=== PATIENT | female | born 1935 | race Caucasian/White ===

== ENCOUNTER 2018-08-16 18:00 | Inpatient (IN) | payer MEDICARE, SELFPAY ==
[2018-08-16 19:10] VITALS: BP 164/78; PULSE 88; RESP 18; TEMP 36.9; O2SAT 95; BMI 22.6
[2018-08-16 21:31] VITALS: BP 165/74; PULSE 83
[2018-08-16] MEDS: hydrALAZINE 25 MG Tablet PO (21:31)
[2018-08-16] MEDS: Senna/Docusate Sodium 1 Tablet 2 TABLET PO (21:31)
[2018-08-16] MEDS: Atorvastatin Calcium 10 MG Tablet 5 MG PO (21:31)
[2018-08-16 21:35] VITALS: BP 165/74; PULSE 83; RESP 16; TEMP 36.7; O2SAT 95
[2018-08-17 06:18] LABS: Absolute Lymphocyte Count 0.89 X10^3/ul (0.83-4.51); Absolute Neutrophil Count 10.8 X10^3/uL (2.0-7.7); Basophil# 0.01 X10^3/uL; Basophil% 0.1 % (0-1); Hemoglobin 8.9 g/dl (12.0-15.0); Lymphocyte # 0.89 X10^3/ul (4.0); Lymphocyte % 7.2 % (19-41); Mean Corpuscular Hgb 29.8 pg (27.0-32.0); Mean Corpuscular Volume 90.3 fL (81-99); Mean Platelet Vol. 9.6 fl (6.2-12.0); Monocyte# 0.52 X10^3/uL; Monocyte% 4.2 % (0-10); Neutrophil # 10.82 X10^3/uL (2.7-7.7); Neutrophil % 87.9 % (47-70); Platelet Count 250 K/mm3 (150-450); Prothrombin Time (Protime)PT. 22.8 SECONDS (11.7-14.9); RBC Distribution Width CV 12.4 % (11.6-14.6); RBC Distribution Width SD 39.3 fl (35.1-43.9); Red Blood Count 2.99 M/mm3 (4.2-5.4); White Blood Count 12.3 K/mm3 (4.4-11.0)
[2018-08-17 06:21] LABS: POSITIVE COUNT NO; POSITIVE DIFFERENTIAL NO; POSITIVE MORPHOLOGY NO
[2018-08-17 06:22] VITALS: O2SAT 95
[2018-08-17 06:32] LABS: ALB/GLOB Ratio 0.5 RATIO (0.9-2.4); AST(SGOT) 44 U/L (15-37); Alanine Aminotransfer ALT/SGPT 35 U/L (13-56); Alkaline Phosphatase 85 U/L (45-117); Anion Gap 9 (5-15); BUN 12 mg/dL (7-18); BUN/Creat Ratio 23.3 RATIO (10-20); Calcium,Total 8.2 mg/dL (8.5-10.1); Chloride 95 mmol/L (98-107); Creatinine, Serum 0.51 mg/dL (0.55-1.02); EST Glomerular Filtration Rate 122 mL/min (>60); Est Glom Filt Rate - Afr Amer 147 mL/min (>60); Globulin 3.7 g/dL (2.2-4.2); Glucose 121 mg/dL (74-106); Potassium 3.1 mmol/L (3.5-5.1); Protein, Total 5.7 g/dL (6.4-8.2); Sodium Level 132 mmol/L (136-145)
[2018-08-17 06:37] VITALS: BP 148/75; PULSE 91
[2018-08-17] MEDS: hydrALAZINE 25 MG Tablet PO ×3 (06:37→21:33)
[2018-08-17] MEDS: Aspirin E.C. 81 MG Tablet PO (07:57)
[2018-08-17] MEDS: Calcium Carb/Vitamin D 1 TABLET Tablet PO ×2 (07:57→18:22)
[2018-08-17] MEDS: Latanoprost 0.005% 1 Bottle 1 DRP EACH EYE (07:58)
[2018-08-17] MEDS: Lisinopril 20 MG Tablet PO (07:59)
[2018-08-17] MEDS: Senna/Docusate Sodium 1 Tablet 2 TABLET PO (07:59)
[2018-08-17 08:09] VITALS: BP 148/75; PULSE 91; RESP 20; TEMP 36.8; O2SAT 96
[2018-08-17] MEDS: Enoxaparin 40 MG/0.4 ML Syringe SC (08:46)
--- NOTE | 2018-08-17 10:56 | PCM.HP.STD ---
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 The patient is a 82 year old F with PMH HTN, HLD, TIA, glaucoma, melanoma, recent abdominal aortic aneurysm rupture status post endovascular repair on 08/10/2018 at [place], [place] complicated by acute left HOSPICE NURSE stroke on 08/11/2018, now admitted to [facility] on 08/16/2018 with debility status post acute left HOSPICE NURSE stroke, for greater than 3 hours therapy daily with a goal of returning back to her home at or near her prior functional baseline. Patient was initially admitted to [facility] in [place] with abdominal pain was found ruptured abdominal aortic aneurysm was later transferred to [facility] in [place] where she underwent endovascular repair on 08/10/2018, then later on 08/11/2018 around 8 AM she was found to have left gaze deviation with right-sided weakness and neglect with NIHSS 16, CT head showed acute left HOSPICE NURSE stroke and small right superior cerebellar stroke, CT angiogram showed left proximal HOSPICE NURSE occlusion and right PICA occlusion, CT perfusion reported to show CBF volume 30 mL, perfusion volume 37 mL, mismatch volume 7 mL with mismatch ratio of 1.2, she was not a TPA candidate due to recent surgery and was not an endovascular candidate due to matched defect. At present patient continues to have severe focal neurological deficits in the form of right homonymous hemianopia with dysarthria extinction and right-sided weakness. Per documentation she lives in a private home with no steps. At present patient denies any headache dizziness, new onset focal motor weakness sensory loss or aphasia. Patient is a poor historian and history cannot be obtained from the patient, history is obtained from medical records and documentation. 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 (Acute) I63.532 Hypercholesteremia (Chronic) E78.00 HTN (hypertension) (Chronic) I10 Aortic aneurysm rupture (Resolved) I71.8 Allergies No Known Allergies Allergy (Verified 08/16/18 19:42) Home Medications: Ambulatory Orders Medication Instructions Recorded Aspirin [Aspir 81] 81 mg PO DAILY 08/16/18 Calcium Carb/Vitamin D [Os-Chi 1 tablet PO BIDCM 08/16/18 500MG + D] Latanoprost 0.005% [Xalatan 1 drop EACH EYE DAILY 08/16/18 Opthalmic] Lisinopril 20 mg PO DAILY 08/16/18 Lovastatin 20 mg PO QHS 08/16/18 hydrALAZINE [Apresoline] 25 mg PO TID 08/16/18 Lives: Spouse/ Significant Other Smoking Status: Former smoker Tobacco Use: Cigarettes Alcohol: None Drugs: None Review of Systems Constitutional: Reports: - - Complete review of systems negative except as documented in HPI VTE Information - Inpt Only VTE Present on Admission: No VTE Mechan Device Prophylaxis: SCD's, Knee High ROBBY Hose VTE Pharm Prophylaxis ordered?: Yes Patient Problems: Active and Suspected Problems (Last Updated 08/16/18 @ 22:40 by Vanesa Tejada) Debility (Acute) 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 Vital Signs Temp Pulse Resp BP Pulse Ox 98.2 F 91 20 H 148/75 H 96 08/17/18 08:09 03/15/19 08:09 08/17/18 08:09 08/17/18 08:09 08/17/18 08:09 Oxygen Delivery Method Room Air Weight: 56.08 kg Body Mass Index (BMI) 22.6 Intake and Output for Last 24 Hours 08/15/18 08/16/18 08/17/18 23:59 23:59 23:59 Intake Total 60 / 60 Output Total 100 / 100 250 / 250 Balance -100 / -100 -190 / -190 Laboratory Tests Past 24 Hrs 08/17/18 08/17/18 08/17/18 05:25 05:25 05:25 WBC 12.3 H RBC 2.99 L Hgb 8.9 L Hct 27.0 L MCV 90.3 MCH 29.8 MCHC 33.0 RDW 12.4 RDW Differential 39.3 Plt Count 250 MPV 9.6 Immature Gran % (Auto) 0.600 Neut % (Auto) 87.9 H Lymph % (Auto) 7.2 L [place] % (Auto) 4.2 Eos % (Auto) 0.0 Baso % (Auto) 0.1 Absolute Neuts (auto) 10.8 H Absolute Lymphs (auto) 0.89 Total Counted Not Reportable PT 22.8 H INR 2.0 Sodium 132 L Potassium 3.1 L Chloride 95 L Carbon Dioxide 28.0 Anion Gap 9 BUN 12 Creatinine 0.51 L Estim Creat Clear Calc 34.90 Est GFR (MDRD) Af Amer 147 Est GFR (MDRD) Non-Af 122 BUN/Creatinine Ratio 23.3 H Glucose 121 H Calcium 8.2 L Total Bilirubin 0.90 AST 44 H ALT 35 Alkaline Phosphatase 85 Total Protein 5.7 L Albumin 2.0 L Globulin 3.7 Albumin/Globulin Ratio 0.5 L Assessment/Plan All Active Problems (Last Updated 08/16/18 @ 22:40 by Vanesa Tjeada) Debility (Acute) 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 Patient was initially admitted to [facility] in [place] with abdominal pain was found ruptured abdominal aortic aneurysm was later transferred to [facility] in [place] where she underwent endovascular repair on 08/10/2018, then later on 08/11/2018 around 8 AM she was found to have left gaze deviation with right-sided weakness and neglect with NIHSS 16, CT head showed acute left HOSPICE NURSE stroke and small right superior cerebellar stroke, CT angiogram showed left proximal HOSPICE NURSE occlusion and right PICA occlusion, CT perfusion reported to show CBF volume 30 mL, perfusion volume 37 mL, mismatch volume 7 mL with mismatch ratio of 1.2, she was not a TPA candidate due to recent surgery and was not an endovascular candidate due to matched defect. At present patient continues to have severe focal neurological deficits in the form of right homonymous hemianopia with dysarthria extinction and right-sided weakness. Per documentation she lives in a private home with no steps. At present patient denies any headache dizziness, new onset focal motor weakness sensory loss or aphasia. Patient is a poor historian and history cannot be obtained from the patient, history is obtained from medical records and documentation Plan ?PT for gait stability ?OT for ADLs ?Bowel protocol ?Analgesics as needed ?Labs reviewed?WBC 12.3, INR 2, AST 44. Patient had a high INR as an inpatient at the outside hospital, reason not clear. Will defer further management per hospitalist recommendation. ?Left HOSPICE NURSE stroke, small right superior cerebellar stroke?on aspirin and Lipitor ?HTN?on lisinopril and hydralazine ?HLD- on atorvastatin ?GI/DVT prophylaxis-on famotidine/Lovenox, SCDs ?Fall precautions ?Hospitalist consult ?Further medical management per hospitalist recommendations ?Follow-up with PCP and neurology on discharge. Code Visit Inpatient E&M: [id number] Init Hosp L3
--- NOTE | 2018-08-17 11:06 | HP.PCM_ITS ---
Problem List (1) Debility Status: Acute (2) TIA (transient ischemic attack) Status: Chronic (3) Glaucoma Status: Chronic (4) Acute ischemic left posterior cerebral artery (STRATEGY ANALYST) stroke Status: Acute (5) Hypercholesteremia Status: Chronic (6) HTN (hypertension) Status: Chronic (7) Aortic aneurysm rupture Status: Resolved History of Present Illness Date of Admission: 08/17/18 Chief Complaint: Debility status post left STRATEGY ANALYST stroke. The patient is a 82 year old F with PMH HTN, HLD, TIA, glaucoma, melanoma, recent abdominal aortic aneurysm rupture status post endovascular repair on 08/10/2018 at [place] complicated by acute left STRATEGY ANALYST stroke on 08/11/2018, now admitted to [facility] on 08/16/2018 with debility status post acute left STRATEGY ANALYST stroke, for greater than 3 hours therapy daily with a goal of returning back to her home at or near her prior functional baseline. Patient was initially admitted to [facility] in [place] with abdominal pain was found ruptured abdominal aortic aneurysm was later transferred to [facility] in [place] where she underwent endovascular repair on 08/10/2018, then later on 08/11/2018 around 8 AM she was found to have left gaze deviation with right-sided weakness and neglect with NIHSS 16, CT head showed acute left STRATEGY ANALYST stroke and small right superior cerebellar stroke, CT angiogram showed left proximal STRATEGY ANALYST occlusion and right PICA occlusion, CT perfusion reported to show CBF volume 30 mL, perfusion volume 37 mL, mismatch volume 7 mL with mismatch ratio of 1.2, she was not a TPA candidate due to recent surgery and was not an endovascular candidate due to matched defect. At present patient continues to have severe focal neurological deficits in the form of right homonymous hemianopia with dysarthria extinction and right-sided weakness. Per documentation she lives in a private home with no steps. At present patient denies any headache dizziness, new onset focal motor weakness sensory loss or aphasia. Patient is a poor historian and history cannot be obtained from the patient, history is obtained from medical records and documentation. [] Past Medical History Past Medical History (Chronic Problems): Chronic Problems (Last Updated 08/16/18 @ 22:40 by Vanesa Tejada) TIA (transient ischemic attack) (Chronic) Glaucoma (Chronic) Hypercholesteremia (Chronic) HTN (hypertension) (Chronic) Medical History: Medical History (Last Updated 08/16/18 @ 22:40 by Vanesa Tejada) TIA (transient ischemic attack) (Chronic) G45.9 Glaucoma (Chronic) H40.9 Acute ischemic left posterior cerebral artery (STRATEGY ANALYST) stroke (Acute) I63.532 Hypercholesteremia (Chronic) E78.00 HTN (hypertension) (Chronic) I10 Aortic aneurysm rupture (Resolved) I71.8 Allergies No Known Allergies Allergy (Verified 08/16/18 19:42) Home Medications: Ambulatory Orders Medication Instructions Recorded Aspirin [Aspir 81] 81 mg PO DAILY 08/16/18 Calcium Carb/Vitamin D [Os-Chi 1 tablet PO BIDCM 08/16/18 500MG + D] Latanoprost 0.005% [Xalatan 1 drop EACH EYE DAILY 08/16/18 Opthalmic] Lisinopril 20 mg PO DAILY 08/16/18 Lovastatin 20 mg PO QHS 08/16/18 hydrALAZINE [Apresoline] 25 mg PO TID 08/16/18 Lives: Spouse/ Significant Other Smoking Status: Former smoker Tobacco Use: Cigarettes Alcohol: None Drugs: None Review of Systems Constitutional: Reports: - - Complete review of systems negative except as documented in HPI VTE Information - Inpt Only VTE Present on Admission: No VTE Mechan Device Prophylaxis: SCD's, Knee High ROBBY Hose VTE Pharm Prophylaxis ordered?: Yes Patient Problems: Active and Suspected Problems (Last Updated 08/16/18 @ 22:40 by Vanesa Tejada) Debility (Acute) 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 Vital Signs Temp Pulse Resp BP Pulse Ox 98.2 F 91 20 H 148/75 H 96 08/17/18 08:09 03/15/19 08:09 08/17/18 08:09 08/17/18 08:09 08/17/18 08:09 Oxygen Delivery Method Room Air Weight: 56.08 kg Body Mass Index (BMI) 22.6 Intake and Output for Last 24 Hours 08/15/18 08/16/18 08/17/18 23:59 23:59 23:59 Intake Total 60 / 60 Output Total 100 / 100 250 / 250 Balance -100 / -100 -190 / -190 Laboratory Tests Past 24 Hrs 08/17/18 08/17/18 08/17/18 05:25 05:25 05:25 WBC 12.3 H RBC 2.99 L Hgb 8.9 L Hct 27.0 L MCV 90.3 MCH 29.8 MCHC 33.0 RDW 12.4 RDW Differential 39.3 Plt Count 250 MPV 9.6 Immature Gran % (Auto) 0.600 Neut % (Auto) 87.9 H Lymph % (Auto) 7.2 L [place] % (Auto) 4.2 Eos % (Auto) 0.0 Baso % (Auto) 0.1 Absolute Neuts (auto) 10.8 H Absolute Lymphs (auto) 0.89 Total Counted Not Reportable PT 22.8 H INR 2.0 Sodium 132 L Potassium 3.1 L Chloride 95 L Carbon Dioxide 28.0 Anion Gap 9 BUN 12 Creatinine 0.51 L Estim Creat Clear Calc 34.90 Est GFR (MDRD) Af Amer 147 Est GFR (MDRD) Non-Af 122 BUN/Creatinine Ratio 23.3 H Glucose 121 H Calcium 8.2 L Total Bilirubin 0.90 AST 44 H ALT 35 Alkaline Phosphatase 85 Total Protein 5.7 L Albumin 2.0 L Globulin 3.7 Albumin/Globulin Ratio 0.5 L Assessment/Plan All Active Problems (Last Updated 08/16/18 @ 22:40 by Vanesa Tejada) Debility (Acute) 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 Patient was initially admitted to [facility] in [place] with abdominal pain was found ruptured abdominal aortic aneurysm was later transferred to [facility] in [place] where she underwent endovascular repair on 08/10/2018, then later on 08/11/2018 around 8 AM she was found to have left gaze deviation with right-sided weakness and neglect with NIHSS 16, CT head showed acute left STRATEGY ANALYST stroke and small right superior cerebellar stroke, CT angiogram showed left proximal STRATEGY ANALYST occlusion and right PICA occlusion, CT perfusion reported to show CBF volume 30 mL, perfusion volume 37 mL, mismatch volume 7 mL with mismatch ratio of 1.2, she was not a TPA candidate due to recent surgery and was not an endovascular candidate due to matched defect. At present patient continues to have severe focal neurological deficits in the form of right homonymous hemianopia with dysarthria extinction and right-sided weakness. Per documentation she lives in a private home with no steps. At present patient denies any headache dizziness, new onset focal motor weakness sensory loss or aphasia. Patient is a poor historian and history cannot be obtained from the patient, history is obtained from medical records and documentation Plan ?PT for gait stability ?OT for ADLs ?Bowel protocol ?Analgesics as needed ?Labs reviewed?WBC 12.3, INR 2, AST 44. Patient had a high INR as an inpatient at the outside hospital, reason not clear. Will defer further management per hospitalist recommendation. ?Left STRATEGY ANALYST stroke, small right superior cerebellar stroke?on aspirin and Lipitor ?HTN?on lisinopril and hydralazine ?HLD- on atorvastatin ?GI/DVT prophylaxis-on famotidine/Lovenox, SCDs ?Fall precautions ?Hospitalist consult ?Further medical management per hospitalist recommendations ?Follow-up with PCP and neurology on discharge. Code Visit Inpatient E&M: [id number] Init Hosp L3
--- NOTE | 2018-08-17 11:12 | PCM.RU.PYE ---
Admission Information Status Changes from Prescreening?: No changes Identified Actual Problem List:: Mobility Impaired, Self Care Deficit, Ineffective Communication Potential Problem List:: DVT, Bleeding, Infection, UTI, Aspiration, Falls, Skin Integrity, Depression Risk of Complications DVT: LMWH, ROBBY Hose, Sequential Compression Device Bleeding: Monitor Lab Values, Nursing to Teach Precautions for anti-coagulation therapy., Wound, if applicable, to be assessed every shift., Stroke patients assessed for lethargy or change in status. Infection: Clinical Staff to Monitor for S/S of infection:, S/S of infection include fever, redness, warmth, etc. Urinary Tract Infection: Monitor for frequency, burning, discomfort, or incontinence., Nursing will obtain urine sample for urinalysis and C&S when ordered. Aspiration: Clinical staff will monitor for coughing, drooling, congestion., Speech will evaluate swallowing and dsyphasia., Nursing will monitor patient swallowing during meals. Falls: Patient will be evaluated for Fall Precautions, Patient will be placed on Fall Precautions as indicated per protocol. Skin Breakdown: Nursing will assess skin daily using assessment tool., Nursing will place on Skin Breakdown Precautions as indicated. Pain: Clinical staff will assess patient's pain level per protocol., Medications will be given, if needed, and the pain level reassessed., Other methods: Massage, distraction, decrease stimulus, etc. used PRN. Plan of Care Patient requires physician specializing in physical medicine and rehab oversight to provide close medical supervision of rehab issues including: Pain Management, Sleep Problems, Bowel and Bladder, Medical and co-morbidity Management, DVT prophylaxis, Rehabilitation Leadership, Coordination of treatment team Patient needs Physical Therapy: For a minimum of 1 hour, At least 5 out of 7 days Patient needs Physical Therapy to improve:: Mobility, Mobility, Mobility, Strengthening, Transfers, Stretching, ROM, Endurance, Stairs, Gait, Balance Patient needs Occupational Therapy: For a minimum of 1 hour, At least 5 out of 7 days Patient needs Occupational Therapy to improve ADL's incl.: Eating, Grooming, Bathing, Dressing, Toileting, Toilet transfers, Community Reintegration, Higher functioning activities, Household tasks, Adaptive Equipment, Splinting, Other activities as determined Patient requires speech therapy: For a minimum of 1 hour, At least 5 out of 7 days Patient requires speech therapy for: Swallowing, Cognition, Language Skills, Compensatory Strategies Patient requires 26/12 Rehabilitation Nursing for: Pain Issues, Identifying and preventing risk factors, Monitoring and reporting current medical conditions, Assisting with ambulation, transfer, and all ADL's, Teaching patients about disease process and medications, Family teaching, Providing safe environment, Bowel and Bladder Issues, Skin integrity, Medication Management Patient needs Biometrics Instructor/ Case Management for: Discharge Planning, Arranging Home Equipment or Services, Family Interventions Patient needs Dietary and Nutrition Services for: Adequate Nutrition, Nutritional Supplements, Nutritional Education Goals Patient will remain: free from falls, or injury at time of discharge. Patient will perform bed mobility at: MOD I level of assist. Patient will complete transfers from bed to chair at: MOD I level of assist. Patient will ambulate: 100 feet, with MOD I assist, with LRD Patient will complete upper body dressing at: MOD I level of assist. Patient will complete lower body dressing at: MOD I level of assist. Patient will complete toileting at: MOD I level of assist. Patient will perform bathing at: MOD I level of assist. Patient will complete grooming at: MOD I level of assist. Patient will complete home management skills at: MOD I level of assist. Patient will achieve: 12 stairs, at MOD I assist Patient will have pain level of: of 3 or less Patient's skin will: remain intact, free from infection. Patient will receive: adequate nutrition. Discharge Planning Pt Prognosis for Sig. Practical Improv. w/in Reasonable Time: Fair Estimated Length of stay (days): 21 Anticipated D/C Destination: Senior Living Facility Was Preadmission Assessment Accurate?: Yes
--- NOTE | 2018-08-17 14:32 | CON.PCM_ITS ---
Problem List (1) Hypokalemia Status: Acute (2) Leukocytosis Status: Acute (3) Debility Status: Acute (4) TIA (transient ischemic attack) Status: Chronic (5) Glaucoma Status: Chronic (6) Acute ischemic left posterior cerebral artery (INDUSTRIAL ROBOTICS MECHANIC) stroke Status: Acute (7) Hypercholesteremia Status: Chronic (8) HTN (hypertension) Status: Chronic (9) Aortic aneurysm rupture Status: Resolved Reason for Consult Date of Consultation: 08/18/18 Reason for Consultation: Medical management History of Present Illness: The patient is a 82 year old F with multiple comorbidities including hypertension, dyslipidemia, TIA had recent abdominal aortic aneurysm rupture status post endovascular repair on 08/10/2018 at [facility], [place] complicated by acute left INDUSTRIAL ROBOTICS MECHANIC stroke on 08/11/2018, being admitted to [facility] on 08/16/2018 with debility status post acute left INDUSTRIAL ROBOTICS MECHANIC and small right superior cerebellar stroke. There patient was found to have right- sided weakness with neglect and left gaze deviation with NIH stroke scale 16. CT angiogram showed left proximal INDUSTRIAL ROBOTICS MECHANIC occlusion and right PICC occlusion. Patient was not a candidate for TPA because of recent surgery and not endovascular candidate due to matched defect found after CT perfusion study. Patient still has neglect and is not able to tell date of , month, disoriented to time place and person and circumstances. Patient aphasia is improved and currently on nectar thick diet improved from previous diet. History is not possible from patient as she cannot understand the questions does not follow command. History mainly taken from the medical record obtained from [facility]. [] Past Medical History Past Medical History (Chronic Problems): Chronic Problems (Last Updated 08/16/18 @ 22:40 by Vanesa Tejada) TIA (transient ischemic attack) (Chronic) Glaucoma (Chronic) Hypercholesteremia (Chronic) HTN (hypertension) (Chronic) Medical History: Medical History (Last Updated 08/16/18 @ 22:40 by Vanesa Tejada) TIA (transient ischemic attack) (Chronic) G45.9 Glaucoma (Chronic) H40.9 Acute ischemic left posterior cerebral artery (INDUSTRIAL ROBOTICS MECHANIC) stroke (Acute) I63.532 Hypercholesteremia (Chronic) E78.00 HTN (hypertension) (Chronic) I10 Aortic aneurysm rupture (Resolved) I71.8 Allergies No Known Allergies Allergy (Verified 08/16/18 19:42) Home Medications: Ambulatory Orders Medication Instructions Recorded Aspirin [Aspir 81] 81 mg PO DAILY 08/16/18 Calcium Carb/Vitamin D [Os-Chi 1 tablet PO BIDCM 08/16/18 500MG + D] Latanoprost 0.005% [Xalatan 1 drop EACH EYE DAILY 08/16/18 Opthalmic] Lisinopril 20 mg PO DAILY 08/16/18 Lovastatin 20 mg PO QHS 08/16/18 hydrALAZINE [Apresoline] 25 mg PO TID 08/16/18 Lives: Spouse/ Significant Other Smoking Status: Former smoker Tobacco Use: Cigarettes Alcohol: None Drugs: None - *Family History Paternal History Items: Unknown - Patient has neglect and no recollection and cannot tell the family history Review of Systems Unable to obtain accurate/complete ROS d/t: Patient had a major stroke with dysarthria Patient Problems: Active and Suspected Problems (Last Updated 08/16/18 @ 22:40 by Vanesa Tejada) Debility (Acute) Hypokalemia (Acute) Leukocytosis (Acute) Acute ischemic left posterior cerebral artery (INDUSTRIAL ROBOTICS MECHANIC) stroke (Acute) - Physical Exam General: Disoriented, - - Neglect and dysarthria HEENT: - - Right-sided homonymous hemianopia Oral: Dry Mucosa Neck: Supple, No JVD, Negative Carotid Bruits Lungs: No rhonchi, No wheeze, No rales, Diminished - Entry diminished bilaterally Cardiovascular: Regular rate, Regular Rhythm, Normal S1, Normal S2, No murmurs Abdomen: Bowel Sounds Present, Soft, Non Tender, Non-Distended Extremities: No edema, Capillary Refill Less than 3 Seconds Skin: No rashes, No breakdown Musculoskeletal: No Tenderness to Palpation of Joints or Extremities, Arthritic Changes, Muscle Wasting Neurological: - - Severe focal neurological deficit. Right-sided weakness. Right upper extremity and lower extremity weakness. Dysphagia and dysarthria right-sided hemineglect. Right homonymous hemianopia Vital Signs Temp Pulse Resp BP Pulse Ox 98.2 F 91 20 H 148/75 H 96 08/17/18 08:09 08/17/18 08:09 08/17/18 08:09 08/17/18 08:09 08/17/18 08:09 Oxygen Delivery Method Room Air Weight: 123 lb 10.164 oz Body Mass Index (BMI) 22.6 Intake and Output for Last 24 Hours 08/15/18 08/16/18 08/17/18 23:59 23:59 23:59 Intake Total 120 / 120 Output Total 100 / 100 500 / 500 Balance -100 / -100 -380 / -380 Laboratory Tests Past 24 Hrs 08/17/18 08/17/18 08/17/18 05:25 05:25 05:25 WBC 12.3 H RBC 2.99 L Hgb 8.9 L Hct 27.0 L MCV 90.3 MCH 29.8 MCHC 33.0 RDW 12.4 RDW Differential 39.3 Plt Count 250 MPV 9.6 Immature Gran % (Auto) 0.600 Neut % (Auto) 87.9 H Lymph % (Auto) 7.2 L [place] % (Auto) 4.2 Eos % (Auto) 0.0 Baso % (Auto) 0.1 Absolute Neuts (auto) 10.8 H Absolute Lymphs (auto) 0.89 Total Counted Not Reportable PT 22.8 H INR 2.0 Sodium 132 L Potassium 3.1 L Chloride 95 L Carbon Dioxide 28.0 Anion Gap 9 BUN 12 Creatinine 0.51 L Estim Creat Clear Calc 34.90 Est GFR (MDRD) Af Amer 147 Est GFR (MDRD) Non-Af 122 BUN/Creatinine Ratio 23.3 H Glucose 121 H Calcium 8.2 L Total Bilirubin 0.90 AST 44 H ALT 35 Alkaline Phosphatase 85 Total Protein 5.7 L Albumin 2.0 L Globulin 3.7 Albumin/Globulin Ratio 0.5 L Assessment/Plan All Active Problems (Last Updated 08/16/18 @ 22:40 by Vanesa Tejada) Debility (Acute) Hypokalemia (Acute) Leukocytosis (Acute) Acute ischemic left posterior cerebral artery (INDUSTRIAL ROBOTICS MECHANIC) stroke (Acute) Aortic aneurysm rupture (Resolved) The patient is a 82 year old F with multiple comorbidities including hypertension, dyslipidemia, TIA had recent abdominal aortic aneurysm rupture status post endovascular repair on 08/10/2018 at [facility], [place] complicated by acute left INDUSTRIAL ROBOTICS MECHANIC stroke on 08/11/2018, being admitted to [facility] on 08/16/2018 with debility status post acute left INDUSTRIAL ROBOT[employer] MECHANIC and small right superior cerebellar stroke. There patient was found to have right- sided weakness with neglect and left gaze deviation with NIH stroke scale 16. CT angiogram showed left proximal INDUSTRIAL ROBOT[employer] MECHANIC occlusion and right PICC occlusion. Patient was not a candidate for TPA because of recent surgery and not endovascular candidate due to matched defect found after CT perfusion study. Patient still has neglect and is not able to tell date of , month, disoriented to time place and person and circumstances. Patient aphasia is improved and currently on nectar thick diet improved from previous diet. History is not possible from patient as she cannot understand the questions does not follow command. History mainly taken from the medical record obtained from [facility]. [] 1. Acute left INDUSTRIAL ROBOTICS MECHANIC stroke and small right superior cerebellar stroke on 08/11/2018 with major debility: Patient is being admitted in acute rehab. PT OT and OT. Bladder and bowel protocol. On aspirin and atorvastatin. 2. Hypertension: On lisinopril and hydralazine 3. Dyslipidemia: On atorvastatin. LDL cholesterol was 50 on 08/11/2018 4. Leukocytosis: Patient WBC count was 17.4 thousand on 08/12/2018. Currently it is about 12,000. Blood cultures they are it was found negative. Patient does not have symptoms and signs of infection including normal temperature, normal heart rate. Pulse ox 97% on room air. Lactic acid was normal on 08/14/2018. I think leukocytosis may be inflammatory secondary to stress from surgery and lateral stroke. WBC count is improving. Repeat CBC on Monday and if is still elevated may need UA with urine culture and chest x-ray. 5. Hypokalemia: Patient is on potassium replacement. In [facility] patient was also hypokalemic, K3.6 to 3.9. Repeat magnesium and BMP on Monday. 6. Acute on chronic anemia, probably from surgical loss during surgery in the leg in the hospital. Patient H&H was 7.9/22.9 on 08/15/2018 and here 8.9/27. Will start on the ferrous sulfate. 7. Recent abdominal aortic aneurysm rupture status post endovascular repair complicated with stroke as mentioned above: DVT prophylaxis on Lovenox 40 mg subcu daily. Code Visit Inpatient E&M: 06330 Init Hosp L2
[2018-08-17 14:50] VITALS: PULSE 80
--- NOTE | 2018-08-17 14:52 | NURSING ---
Dr. Hollingsworth aware of labs. Patient pleasant, needs cues and redirections, alert to self only.
[2018-08-17 15:19] VITALS: BMI 22.6
[2018-08-17 21:30] VITALS: BP 139/58; PULSE 93; RESP 18; TEMP 36.9; O2SAT 94
[2018-08-17 21:33] VITALS: BP 139/58; PULSE 90
[2018-08-17] MEDS: Atorvastatin Calcium 40 MG Tablet PO (21:33)
[2018-08-17] MEDS: Famotidine 20 MG Tablet PO (21:33)
[2018-08-17 22:26] VITALS: BMI 22.6
[2018-08-18 05:31] VITALS: BP 150/93; PULSE 95
[2018-08-18] MEDS: hydrALAZINE 25 MG Tablet PO ×3 (05:31→21:04)
[2018-08-18 07:59] VITALS: BP 150/93; PULSE 96; RESP 18; TEMP 37.2; O2SAT 94
[2018-08-18 08:07] LABS: Anion Gap 8 (5-15); BUN 14 mg/dL (7-18); BUN/Creat Ratio 18.7 RATIO (10-20); Chloride 97 mmol/L (98-107); Creatinine, Serum 0.75 mg/dL (0.55-1.02); EST Glomerular Filtration Rate 79 mL/min (>60); Est Glom Filt Rate - Afr Amer 96 mL/min (>60); Glucose 150 mg/dL (74-106); Magnesium 1.6 mg/dL (1.6-2.6); Potassium 3.6 mmol/L (3.5-5.1); Sodium Level 133 mmol/L (136-145)
[2018-08-18] MEDS: Aspirin E.C. 81 MG Tablet PO (08:53)
[2018-08-18] MEDS: Enoxaparin 40 MG/0.4 ML Syringe SC (08:53)
[2018-08-18] MEDS: Famotidine 20 MG Tablet PO ×2 (08:54→21:04)
[2018-08-18] MEDS: Lisinopril 20 MG Tablet PO (08:54)
[2018-08-18] MEDS: Latanoprost 0.005% 1 Bottle 1 DRP EACH EYE (08:58)
[2018-08-18] MEDS: Calcium Carb/Vitamin D 1 TABLET Tablet PO ×2 (08:58→17:15)
[2018-08-18 09:39] VITALS: O2SAT 97
[2018-08-18 13:58] VITALS: BP 141/63; PULSE 82
[2018-08-18 14:06] VITALS: BMI 22.6
[2018-08-18] MEDS: Ferrous Sulfate 325 MG Tablet PO (17:35)
[2018-08-18] MEDS: Magnesium Oxide 400 MG Tablet PO (17:36)
[2018-08-18 20:59] VITALS: BP 136/73; PULSE 94; RESP 18; TEMP 37; O2SAT 94
[2018-08-18 21:04] VITALS: BP 136/73; PULSE 97
[2018-08-18] MEDS: NYSTATIN 500,000 UNIT/5 ML UDC 500000 UNIT PO (21:04)
[2018-08-18] MEDS: Atorvastatin Calcium 40 MG Tablet PO (21:04)
[2018-08-18 21:53] VITALS: BMI 22.6
[2018-08-19 05:45] VITALS: BP 141/65; PULSE 95
[2018-08-19] MEDS: hydrALAZINE 25 MG Tablet PO ×3 (05:45→19:58)
[2018-08-19 07:33] VITALS: BP 141/65; PULSE 98; RESP 18; TEMP 37.4; O2SAT 95
[2018-08-19] MEDS: Magnesium Oxide 400 MG Tablet PO ×2 (08:54→17:34)
[2018-08-19] MEDS: Famotidine 20 MG Tablet PO ×2 (08:54→19:59)
[2018-08-19] MEDS: NYSTATIN 500,000 UNIT/5 ML UDC 500000 UNIT PO ×4 (08:54→19:59)
[2018-08-19] MEDS: Latanoprost 0.005% 1 Bottle 1 DRP EACH EYE (08:54)
[2018-08-19] MEDS: Senna/Docusate Sodium 1 Tablet 2 TABLET PO (08:54)
[2018-08-19] MEDS: Calcium Carb/Vitamin D 1 TABLET Tablet PO ×2 (08:54→17:34)
[2018-08-19] MEDS: Aspirin E.C. 81 MG Tablet PO (08:54)
[2018-08-19] MEDS: Lisinopril 20 MG Tablet PO (08:54)
[2018-08-19] MEDS: Enoxaparin 40 MG/0.4 ML Syringe SC (08:56)
[2018-08-19 09:35] VITALS: O2SAT 95
--- NOTE | 2018-08-19 13:08 | NURSING ---
Per. daughter Gris Lockwood states that her mother is a DNR-CC she does not want compressions nor intubation comfort care only.
[2018-08-19 13:29] VITALS: BP 140/63; PULSE 82
[2018-08-19] MEDS: Ferrous Sulfate 325 MG Tablet PO ×2 (13:29→17:34)
[2018-08-19 13:40] VITALS: BMI 22.6
--- NOTE | 2018-08-19 15:03 | NURSING ---
Per Gris Lockwood (daughter) states siblings want her mother to be DNR-CC. This RN and CLIENT PROJECT COORDINATOR witnessed daughters request.
--- NOTE | 2018-08-19 17:13 | PCM.PN.HOSP ---
Patient Problems: Active and Suspected Problems (Last Updated 08/16/18 @ 22:40 by Vanesa Tejada) Debility (Acute) Hypokalemia (Acute) Leukocytosis (Acute) Acute ischemic left posterior cerebral artery (SAMPLER TESTER) stroke (Acute) Subjective: Patient was seen and examined. No acute acute event. She still has expressive aphasia. Denied any chest pain or dizziness or shortness of breath. Objective: Physical Exam General: Alert, oriented x 1-2, not pale, not jaundice, with neglect and dysarthria HEENT: - - Right-sided homonymous hemianopia Oral: Moist mucosa Neck: Supple Lungs: No rhonchi, No wheeze, No rales, Diminished - Entry diminished bilaterally Cardiovascular: Regular rate, Regular Rhythm, Normal S1, Normal S2, No murmurs Abdomen: Bowel Sounds Present, Soft, Non Tender, Non-Distended Extremities: No edema Skin: No rashes, No breakdown Musculoskeletal: No Tenderness to Palpation of Joints or Extremities, Arthritic Changes, Muscle Wasting Neurological: - - Severe focal neurological deficit. Right-sided weakness. Right upper extremity and lower extremity weakness. Dysphagia and dysarthria right-sided hemineglect. Right homonymous hemianopia Vitals/I&O's: Vital Signs Temp Pulse Resp BP Pulse Ox 99.4 F H 82 18 140/63 H 95 08/19/18 07:33 08/19/18 13:29 08/19/18 07:33 08/19/18 13:29 08/19/18 09:35 Oxygen Delivery Method Room Air Weight: 56.08 kg Body Mass Index (BMI) 22.6 Intake and Output for Last 24 Hours 08/17/18 08/18/18 08/19/18 23:59 23:59 23:59 Intake Total 420 / 420 Output Total 501 / 501 Balance -81 / -81 Current [facility] Admin: 08/19/18 08:54 Dose: 81 mg Atorvastatin Calcium (Lipitor) 40 mg PO QHS [facility] Last Admin: 08/18/18 21:04 Dose: 40 mg Bisacodyl (Dulcolax) 10 mg RECTAL .PRN X 1 PRN PRN Reason: Constipation Calcium/Vitamin D (Os-Chi 500mg + D) [facility] Last Admin: 08/19/18 08:54 Dose: 1 tablet Enoxaparin Sodium (Lovenox) 40 mg SC DAILY [facility] Last Admin: 08/19/18 08:56 Dose: 40 mg Famotidine (Pepcid) 20 mg PO BID [facility] Last Admin: 08/19/18 08:54 Dose: 20 mg Ferrous Sulfate (Ferrous Sulfate) 325 mg PO 1200,1700 [facility] Last Admin: 08/19/18 13:29 Dose: 325 mg Hydralazine HCl (Apresoline) 25 mg PO TID [facility] Last Admin: 08/19/18 13:29 Dose: 25 mg Latanoprost (Xalatan Opthalmic) 1 drop EACH EYE DAILY [facility] Last Admin: 08/19/18 08:54 Dose: 1 drop Lisinopril (Zestril) 20 mg PO DAILY [facility] Last Admin: 08/19/18 08:54 Dose: 20 mg Magnesium Hydroxide (Milk Of Magnesia) 30 ml PO .PRN X 1 PRN PRN Reason: Constipation Magnesium Oxide (Mag-Ox 400) [facility] Stop: 08/20/18 08:01 Last Admin: 08/19/18 08:54 Dose: 400 mg Nystatin (Nystatin) 500,000 unit PO 4X/DAY [facility] Last Admin: 08/19/18 13:30 Dose: 500,000 unit Senna/Docusate Sodium (Senokot-S, Danielle-Colace) 2 tablet PO BID [facility] Last Admin: 08/19/18 08:54 Dose: 2 tablet Medical Necessity - Tobacco Use Smoking Status: Former smoker Tobacco Use: Cigarettes Assessment/Plan All Active Problems (Last Updated 08/16/18 @ 22:40 by Vanesa Tejada) Debility (Acute) Hypokalemia (Acute) Leukocytosis (Acute) Acute ischemic left posterior cerebral artery (SAMPLER TESTER) stroke (Acute) Aortic aneurysm rupture (Resolved) 82 y/o female with PMHx of hypertension, hyperlipidemia, h/o TIA who had abdominal aortic aneurysm repair on 08/10/18 complicated by acute left SAMPLER TESTER stroke on 08/11/18 and admitted for acute rehab. 1. Debility secondary to acute left SAMPLER TESTER CVA/right superior cerebellar stroke, undergoing therapy, continue on aspirin, statin, Follow-up on recommendation of therapy team 2. Hypokalemia, resolved 3. Hypertension, controlled, continue on hydralazine, lisinopril, will monitor 4. Hyperlipidemia, on statin 5. Acute on chronic anemia, secondary to acute blood loss, Hb is stable, on po iron 6. s/p recent AA rupture repair 7. DVT PPx- Lovenox SC Code Visit Inpatient E&M: 06249 Subs Hosp L2
--- NOTE | 2018-08-19 17:22 | PN_ITS ---
Patient Problems: Active and Suspected Problems (Last Updated 08/16/18 @ 22:40 by Vanesa Tejada) Debility (Acute) Hypokalemia (Acute) Leukocytosis (Acute) Acute ischemic left posterior cerebral artery (SENIOR SSIS DEVELOPER) stroke (Acute) Subjective: Patient was seen and examined. No acute acute event. She still has expressive aphasia. Denied any chest pain or dizziness or shortness of breath. Objective: Physical Exam General: Alert, oriented x 1-2, not pale, not jaundice, with neglect and dysarthria HEENT: - - Right-sided homonymous hemianopia Oral: Moist mucosa Neck: Supple Lungs: No rhonchi, No wheeze, No rales, Diminished - Entry diminished bilaterally Cardiovascular: Regular rate, Regular Rhythm, Normal S1, Normal S2, No murmurs Abdomen: Bowel Sounds Present, Soft, Non Tender, Non-Distended Extremities: No edema Skin: No rashes, No breakdown Musculoskeletal: No Tenderness to Palpation of Joints or Extremities, Arthritic Changes, Muscle Wasting Neurological: - - Severe focal neurological deficit. Right-sided weakness. Right upper extremity and lower extremity weakness. Dysphagia and dysarthria right-sided hemineglect. Right homonymous hemianopia Vitals/I&O's: Vital Signs Temp Pulse Resp BP Pulse Ox 99.4 F H 82 18 140/63 H 95 08/19/18 07:33 08/19/18 13:29 08/19/18 07:33 08/19/18 13:29 08/19/18 09:35 Oxygen Delivery Method Room Air Weight: 56.08 kg Body Mass Index (BMI) 22.6 Intake and Output for Last 24 Hours 08/17/18 08/18/18 08/19/18 23:59 23:59 23:59 Intake Total 420 / 420 Output Total 501 / 501 Balance -81 / -81 Current Medications [facility]rin) [facility] Last Admin: 08/19/18 08:54 Dose: 81 mg Atorvastatin Calcium (Lipitor) 40 mg PO QHS [facility] Last Admin: 08/18/18 21:04 Dose: 40 mg Bisacodyl (Dulcolax) 10 mg RECTAL .PRN X 1 PRN PRN Reason: Constipation Calcium/Vitamin D (Os-Chi 500mg + D) [facility] Last Admin: 08/19/18 08:54 Dose: 1 tablet Enoxaparin Sodium (Lovenox) 40 mg SC DAILY [facility] Last Admin: 08/19/18 08:56 Dose: 40 mg Famotidine (Pepcid) 20 mg PO BID [facility] Last Admin: 08/19/18 08:54 Dose: 20 mg Ferrous Sulfate (Ferrous Sulfate) 325 mg PO 1200,1700 [facility] Last Admin: 08/19/18 13:29 Dose: 325 mg Hydralazine HCl (Apresoline) 25 mg PO TID [facility] Last Admin: 08/19/18 13:29 Dose: 25 mg Latanoprost (Xalatan Opthalmic) 1 drop EACH EYE DAILY [facility] Last Admin: 08/19/18 08:54 Dose: 1 drop Lisinopril (Zestril) 20 mg PO DAILY [facility] Last Admin: 08/19/18 08:54 Dose: 20 mg Magnesium Hydroxide (Milk Of Magnesia) 30 ml PO .PRN X 1 PRN PRN Reason: Constipation Magnesium Oxide (Mag-Ox 400) 400 [facility] Stop: 08/20/18 08:01 Last Admin: 08/19/18 08:54 Dose: 400 mg Nystatin (Nystatin) 500,000 unit PO 4X/DAY [facility] Last Admin: 08/19/18 13:30 Dose: 500,000 unit Senna/Docusate Sodium (Senokot-S, Danielle-Colace) 2 tablet PO BID [facility] Last Admin: 08/19/18 08:54 Dose: 2 tablet Medical Necessity - Tobacco Use Smoking Status: Former smoker Tobacco Use: Cigarettes Assessment/Plan All Active Problems (Last Updated 08/16/18 @ 22:40 by Vanesa Tejada) Debility (Acute) Hypokalemia (Acute) Leukocytosis (Acute) Acute ischemic left posterior cerebral artery (SENIOR SSIS DEVELOPER) stroke (Acute) Aortic aneurysm rupture (Resolved) 82 y/o female with PMHx of hypertension, hyperlipidemia, h/o TIA who had abdominal aortic aneurysm repair on 08/10/18 complicated by acute left SENIOR SSIS DEVELOPER stroke on 08/11/18 and admitted for acute rehab. 1. Debility secondary to acute left SENIOR SSIS DEVELOPER CVA/right superior cerebellar stroke, undergoing therapy, continue on aspirin, statin, Follow-up on recommendation of therapy team 2. Hypokalemia, resolved 3. Hypertension, controlled, continue on hydralazine, lisinopril, will monitor 4. Hyperlipidemia, on statin 5. Acute on chronic anemia, secondary to acute blood loss, Hb is stable, on po iron 6. s/p recent AA rupture repair 7. DVT PPx- Lovenox SC Code Visit Inpatient E&M: 39269 Subs Hosp L2
[2018-08-19 19:57] VITALS: BP 131/55; PULSE 105; RESP 16; TEMP 36.6; O2SAT 95
[2018-08-19 19:58] VITALS: BP 131/55; PULSE 105
[2018-08-19] MEDS: Atorvastatin Calcium 40 MG Tablet PO (19:59)
[2018-08-19 21:30] VITALS: BMI 22.6
[2018-08-20 05:45] VITALS: BP 149/68; PULSE 87
[2018-08-20] MEDS: hydrALAZINE 25 MG Tablet PO ×3 (05:45→22:08)
[2018-08-20 06:46] LABS: Absolute Lymphocyte Count 1.11 X10^3/ul (0.83-4.51); Absolute Neutrophil Count 8.1 X10^3/uL (2.0-7.7); Basophil# 0.01 X10^3/uL; Basophil% 0.1 % (0-1); Hematocrit 26.7 % (37-47); Hemoglobin 8.5 g/dl (12.0-15.0); Lymphocyte # 1.11 X10^3/ul (4.0); Lymphocyte % 11.5 % (19-41); Mean Corp Hgb Conc 31.8 g/gl (32-36); Mean Corpuscular Hgb 29.3 pg (27.0-32.0); Mean Corpuscular Volume 92.1 fL (81-99); Mean Platelet Vol. 9.4 fl (6.2-12.0); Monocyte# 0.45 X10^3/uL; Monocyte% 4.7 % (0-10); Neutrophil # 8.05 X10^3/uL (2.7-7.7); Neutrophil % 83.2 % (47-70); POSITIVE COUNT NO; POSITIVE DIFFERENTIAL NO; POSITIVE MORPHOLOGY NO; Platelet Count 273 K/mm3 (150-450); RBC Distribution Width CV 12.6 % (11.6-14.6); RBC Distribution Width SD 41.1 fl (35.1-43.9); White Blood Count 9.7 K/mm3 (4.4-11.0)
[2018-08-20 06:51] LABS: Anion Gap 6 (5-15); BUN 14 mg/dL (7-18); BUN/Creat Ratio 19.9 RATIO (10-20); Calcium,Total 7.9 mg/dL (8.5-10.1); Chloride 97 mmol/L (98-107); EST Glomerular Filtration Rate 85 mL/min (>60); Est Glom Filt Rate - Afr Amer 103 mL/min (>60); Glucose 136 mg/dL (74-106); Magnesium 1.5 mg/dL (1.6-2.6); Potassium 3.6 mmol/L (3.5-5.1); Sodium Level 130 mmol/L (136-145)
[2018-08-20 07:36] VITALS: BP 149/68; PULSE 87; RESP 22; TEMP 36.9; O2SAT 95
[2018-08-20] MEDS: Famotidine 20 MG Tablet PO ×2 (07:57→22:09)
[2018-08-20] MEDS: Magnesium Oxide 400 MG Tablet PO (07:57)
[2018-08-20] MEDS: Lisinopril 20 MG Tablet PO (07:57)
[2018-08-20] MEDS: Enoxaparin 40 MG/0.4 ML Syringe SC (07:57)
[2018-08-20] MEDS: Aspirin E.C. 81 MG Tablet PO (07:57)
[2018-08-20] MEDS: Calcium Carb/Vitamin D 1 TABLET Tablet PO ×2 (07:57→17:17)
[2018-08-20] MEDS: NYSTATIN 500,000 UNIT/5 ML UDC 500000 UNIT PO ×4 (07:58→22:09)
[2018-08-20] MEDS: Latanoprost 0.005% 1 Bottle 1 DRP EACH EYE (07:58)
[2018-08-20 13:18] VITALS: BMI 22.6
--- NOTE | 2018-08-20 15:02 | PCM.PN.NEU ---
Patient Problems: Active and Suspected Problems (Last Updated 08/16/18 @ 22:40 by Vanesa Tejada) Debility (Acute) Hypokalemia (Acute) Leukocytosis (Acute) Acute ischemic left posterior cerebral artery (ROLL OFF DRIVER) stroke (Acute) Subjective: no new compliants, tolerating therapies - Physical Exam General: Alert, Oriented x3, Cooperative, No apparent distress HEENT: PERRLA, EOMI Neurological: - - right field cut Vital Signs Temp Pulse Resp BP Pulse Ox 36.9 C 87 22 H 149/68 H 95 08/20/18 07:36 08/20/18 07:36 08/20/18 07:36 08/20/18 07:36 08/20/18 07:36 Oxygen Delivery Method Room Air Weight: 56.08 kg Body Mass Index (BMI) 22.6 Intake and Output for Last 24 Hours 08/18/18 08/19/18 08/20/18 23:59 23:59 23:59 Intake Total 200 / 200 200 / 200 330 / 330 Balance 200 / 200 200 / 200 330 / 330 Laboratory Tests Past 24 Hrs 08/20/18 08/20/18 06:26 06:26 WBC 9.7 RBC 2.90 L Hgb 8.5 L Hct 26.7 L MCV 92.1 MCH 29.3 MCHC 31.8 L RDW 12.6 RDW Differential 41.1 Plt Count 273 MPV 9.4 Immature Gran % (Auto) 0.500 Neut % (Auto) 83.2 H Lymph % (Auto) 11.5 L [place] % (Auto) 4.7 Eos % (Auto) 0.0 Baso % (Auto) 0.1 Absolute Neuts (auto) 8.1 H Absolute Lymphs (auto) 1.11 Total Counted Not Reportable Sodium 130 L Potassium 3.6 Chloride 97 L Carbon Dioxide 27.0 Anion Gap 6 BUN 14 Creatinine 0.70 Estim Creat Clear Calc 34.90 Est GFR (MDRD) Af Amer 103 Est GFR (MDRD) Non-Af 85 BUN/Creatinine Ratio 19.9 Glucose 136 H Calcium 7.9 L Magnesium 1.5 L Medical Necessity - Tobacco Use Smoking Status: Former smoker Tobacco Use: Cigarettes Assessment/Plan All Active Problems (Last Updated 08/16/18 @ 22:40 by Vanesa Tejada) Debility (Acute) Hypokalemia (Acute) Leukocytosis (Acute) Acute ischemic left posterior cerebral artery (ROLL OFF DRIVER) stroke (Acute) Aortic aneurysm rupture (Resolved) The patient is a 82 year old F with PMH HTN, HLD, TIA, glaucoma, melanoma, recent abdominal aortic aneurysm rupture status post endovascular repair on 08/10/2018 at [place], [place] complicated by acute left ROLL OFF DRIVER stroke on 08/11/2018, now admitted to [facility] on 08/16/2018 with debility status post acute left ROLL OFF DRIVER stroke, for greater than 3 hours therapy daily with a goal of returning back to her home at or near her prior functional baseline. Plan ?PT for gait stability ?OT for ADLs ?Bowel protocol ?Analgesics as needed ?Labs reviewed?WBC 12.3, INR 2, AST 44. Patient had a high INR as an inpatient at the outside hospital, reason not clear. Will defer further management per hospitalist recommendation. ?Left ROLL OFF DRIVER stroke, small right superior cerebellar stroke?on aspirin and Lipitor ?HTN?on lisinopril and hydralazine ?HLD- on atorvastatin ?GI/DVT prophylaxis-on famotidine/Lovenox, SCDs ?Fall precautions ?Hospitalist consult ?Further medical management per hospitalist recommendations ?Follow-up with PCP and neurology on discharge.
[2018-08-20 15:25] VITALS: BP 145/59; PULSE 86
[2018-08-20] MEDS: Ferrous Sulfate 325 MG Tablet PO ×2 (15:25→17:17)
[2018-08-20 19:16] VITALS: BP 134/59; PULSE 89; RESP 18; TEMP 36.8; O2SAT 96
--- NOTE | 2018-08-20 21:35 | NURSING ---
Text. Dr. Steve ref. Na+ 130.
[2018-08-20 22:00] VITALS: PULSE 89; RESP 18; O2SAT 96; BMI 22.6
[2018-08-20 22:08] VITALS: BP 134/59; PULSE 89
[2018-08-20] MEDS: Atorvastatin Calcium 40 MG Tablet PO (22:08)
--- NOTE | 2018-08-21 02:31 | NURSING ---
Reviewed and agreed with PIPE JEEPER documentation and [facility] charting.
[2018-08-21 05:08] VITALS: BP 134/63; PULSE 78
[2018-08-21] MEDS: hydrALAZINE 25 MG Tablet PO ×3 (05:08→22:05)
[2018-08-21 07:44] VITALS: BP 134/63; PULSE 78; RESP 16; TEMP 36.8; O2SAT 96
[2018-08-21] MEDS: Aspirin E.C. 81 MG Tablet PO (07:57)
[2018-08-21] MEDS: Lisinopril 20 MG Tablet PO (07:57)
[2018-08-21] MEDS: Famotidine 20 MG Tablet PO ×2 (07:57→22:05)
[2018-08-21] MEDS: Calcium Carb/Vitamin D 1 TABLET Tablet PO ×2 (07:57→17:15)
[2018-08-21] MEDS: NYSTATIN 500,000 UNIT/5 ML UDC 500000 UNIT PO ×4 (07:58→22:05)
[2018-08-21] MEDS: Latanoprost 0.005% 1 Bottle 1 DRP EACH EYE (07:59)
[2018-08-21] MEDS: Enoxaparin 40 MG/0.4 ML Syringe SC (10:48)
[2018-08-21] MEDS: Ferrous Sulfate 325 MG Tablet PO ×2 (10:48→17:15)
[2018-08-21] MEDS: Menthol/Lanolin/Calamine/Znox 113 GM Tube 1 APPLIC TOPICAL ×2 (11:54→22:03)
[2018-08-21 13:35] VITALS: BP 144/59; PULSE 87
[2018-08-21 15:11] VITALS: BMI 22.6
[2018-08-21 18:52] VITALS: BP 125/57; PULSE 87; RESP 16; TEMP 36.6; O2SAT 97
[2018-08-21 22:00] VITALS: PULSE 86; RESP 16; BMI 22.6
[2018-08-21] MEDS: Senna/Docusate Sodium 1 Tablet 2 TABLET PO (22:03)
[2018-08-21] MEDS: Atorvastatin Calcium 40 MG Tablet PO (22:03)
[2018-08-21 22:05] VITALS: BP 125/57; PULSE 87
[2018-08-22] VITALS (7 sets, daily range): BP systolic 127–138; BP diastolic 56–66; PULSE 73–88; RESP 16; TEMP 36.6–36.8; O2SAT 94–95; BMI 22.6
[2018-08-22] MEDS: Enoxaparin 40 MG/0.4 ML Syringe SC (04:59)
[2018-08-22] MEDS: hydrALAZINE 25 MG Tablet PO ×3 (05:01→19:37)
--- NOTE | 2018-08-22 06:55 | PN_ITS ---
Patient Problems: Active and Suspected Problems (Last Updated 08/16/18 @ 22:40 by Vanesa Tejada) Debility (Acute) Hypokalemia (Acute) Leukocytosis (Acute) Acute ischemic left posterior cerebral artery (CHEF BROILER OR FRY) stroke (Acute) Subjective: Patient was seen and examined. No new complains. No acute events Objective: Physical Exam General: Alert, oriented x 1-2, not pale, not jaundice, with neglect and dysarthria HEENT: - - Right-sided homonymous hemianopia Oral: Moist mucosa Neck: Supple Lungs: No rhonchi, No wheeze, No rales, Diminished - Entry diminished bilaterally Cardiovascular: Regular rate, Regular Rhythm, Normal S1, Normal S2, No murmurs Abdomen: Bowel Sounds Present, Soft, Non Tender, Non-Distended Extremities: No edema Skin: No rashes, No breakdown Musculoskeletal: No Tenderness to Palpation of Joints or Extremities, Arthritic Changes, Muscle Wasting Neurological: - - Severe focal neurological deficit. Right-sided weakness. Right upper extremity and lower extremity weakness. Dysphagia and dysarthria right-sided hemineglect. Right homonymous hemianopia Vitals/I&O's: Vital Signs Temp Pulse Resp BP Pulse Ox 97.9 F 73 16 138/66 H 97 08/21/18 18:52 08/22/18 05:01 08/21/18 22:00 08/22/18 05:01 08/21/18 18:52 Oxygen Delivery Method Room Air Weight: 56.08 kg Body Mass Index (BMI) 22.6 Intake and Output for Last 24 Hours 08/20/18 08/21/18 08/22/18 23:59 23:59 23:59 Intake Total 450 / 450 700 / 700 Balance 450 / 450 700 / 700 Current Medications Acetaminophen (Tylenol) 650 mg PO Q6H PRN PRN PRN Reason: PAIN Aspirin (Ecotrin) 81 mg PO DAILYCM [facility] Last Admin: 08/21/18 07:57 Dose: 81 mg Atorvastatin Calcium (Lipitor) 40 mg PO QHS [facility] Last Admin: 08/21/18 22:03 Dose: 40 mg Bisacodyl (Dulcolax) 10 mg RECTAL .PRN X 1 PRN PRN Reason: Constipation Calamine/Phenol (Calmoseptine Ointment) 1 applic TOPICAL BID [facility]; Protocol Last Admin: 08/21/18 22:03 Dose: 1 applicatio Calcium/Vitamin D (Os-Chi 500mg + D) 1 tablet PO BIDCM [facility] Last Admin: 08/21/18 17:15 Dose: 1 tablet Enoxaparin Sodium (Lovenox) 40 mg SC DAILY@0600 [facility] Last Admin: 08/22/18 04:59 Dose: 40 mg Famotidine (Pepcid) 20 mg PO BID [facility] Last Admin: 08/21/18 22:05 Dose: 20 mg Ferrous Sulfate (Ferrous Sulfate) 325 mg PO 1200,1700 [facility] Last Admin: 08/21/18 17:15 Dose: 325 mg Hydralazine HCl (Apresoline) 25 mg PO TID [facility] Last Admin: 08/22/18 05:01 Dose: 25 mg Latanoprost (Xalatan Opthalmic) 1 drop EACH EYE DAILY [facility] Last Admin: 08/21/18 07:59 Dose: 1 drop Lisinopril (Zestril) 20 mg PO DAILY [facility] Last Admin: 08/21/18 07:57 Dose: 20 mg Magnesium Hydroxide (Milk Of Magnesia) 30 ml PO .PRN X 1 PRN PRN Reason: Constipation Nystatin (Nystatin) 500,000 unit PO 4X/DAY [facility] Last Admin: 08/21/18 22:05 Dose: 500,000 unit Senna/Docusate Sodium (Senokot-S, Danielle-Colace) 2 tablet PO BID [facility] Last Admin: 08/22/18 04:58 Dose: Not Given Medical Necessity - Tobacco Use Smoking Status: Former smoker Tobacco Use: Cigarettes Assessment/Plan All Active Problems (Last Updated 08/16/18 @ 22:40 by Vanesa Tejada) Debility (Acute) Hypokalemia (Acute) Leukocytosis (Acute) Acute ischemic left posterior cerebral artery (CHEF BROILER OR FRY) stroke (Acute) Aortic aneurysm rupture (Resolved) 82 y/o female with PMHx of hypertension, hyperlipidemia, h/o TIA who had abdominal aortic aneurysm repair on 08/10/18 complicated by acute left CHEF BROILER OR FRY stroke on 08/11/18 and admitted for acute rehab. 1. Debility secondary to acute left CHEF BROILER OR FRY CVA/right superior cerebellar stroke, undergoing therapy, continue on aspirin, statin, Follow-up on recommendations of therapy team 2. Hypokalemia, resolved, will continue to trend BMP 3. Hypomagnesemia, replace, recheck in am 4. Hypertension, controlled, continue on hydralazine, lisinopril, will monitor 5. Hyperlipidemia, on statin 6. Acute on chronic anemia, secondary to acute blood loss, Hb is stable, on po iron 7. s/p recent AA rupture repair 8. DVT PPx- Lovenox SC Code Visit Inpatient E&M: 64682 Subs Hosp L2
[2018-08-22] MEDS: Latanoprost 0.005% 1 Bottle 1 DRP EACH EYE (07:47)
[2018-08-22] MEDS: NYSTATIN 500,000 UNIT/5 ML UDC 500000 UNIT PO ×4 (07:47→20:03)
[2018-08-22] MEDS: Calcium Carb/Vitamin D 1 TABLET Tablet PO ×2 (07:47→17:17)
[2018-08-22] MEDS: Lisinopril 20 MG Tablet PO (07:47)
[2018-08-22] MEDS: Aspirin E.C. 81 MG Tablet PO (07:47)
[2018-08-22] MEDS: Famotidine 20 MG Tablet PO ×2 (07:47→19:38)
[2018-08-22] MEDS: Menthol/Lanolin/Calamine/Znox 113 GM Tube 1 APPLIC TOPICAL ×2 (07:52→19:37)
[2018-08-22] MEDS: Ferrous Sulfate 325 MG Tablet PO ×2 (11:53→17:17)
[2018-08-22] MEDS: Atorvastatin Calcium 40 MG Tablet PO (19:37)
[2018-08-22] MEDS: Senna/Docusate Sodium 1 Tablet 2 TABLET PO (19:39)
[2018-08-22] MEDS: 0.9% NaCl Peripheral Flush Adult/Peds IV (19:58)
[2018-08-23 05:15] VITALS: BP 132/60; PULSE 82
[2018-08-23] MEDS: hydrALAZINE 25 MG Tablet PO ×3 (05:15→22:46)
[2018-08-23] MEDS: Enoxaparin 40 MG/0.4 ML Syringe SC (05:15)
[2018-08-23 06:18] LABS: Magnesium 2.1 mg/dL (1.6-2.6)
[2018-08-23 07:05] VITALS: BP 143/81; PULSE 84; RESP 18; TEMP 37.2; O2SAT 94
[2018-08-23] MEDS: Senna/Docusate Sodium 1 Tablet 2 TABLET PO ×2 (07:53→22:46)
[2018-08-23] MEDS: Calcium Carb/Vitamin D 1 TABLET Tablet PO ×2 (07:53→17:16)
[2018-08-23] MEDS: Famotidine 20 MG Tablet PO ×2 (07:53→22:46)
[2018-08-23] MEDS: Aspirin E.C. 81 MG Tablet PO (07:53)
[2018-08-23] MEDS: Lisinopril 20 MG Tablet PO (07:53)
[2018-08-23] MEDS: Menthol/Lanolin/Calamine/Znox 113 GM Tube 1 APPLIC TOPICAL ×2 (07:57→22:46)
[2018-08-23] MEDS: NYSTATIN 500,000 UNIT/5 ML UDC 500000 UNIT PO ×4 (07:58→22:46)
[2018-08-23] MEDS: Latanoprost 0.005% 1 Bottle 1 DRP EACH EYE (10:25)
[2018-08-23 11:33] VITALS: BMI 22.6
--- NOTE | 2018-08-23 12:29 | PCM.PN.NEU ---
Patient Problems: Active and Suspected Problems (Last Updated 08/16/18 @ 22:40 by Vanesa Tejada) Debility (Acute) Hypokalemia (Acute) Leukocytosis (Acute) Acute ischemic left posterior cerebral artery (POLICY CHANGE CLERK) stroke (Acute) Subjective: No new complaints. Staffed in team meeting today. Doing well from a physical therapy standpoint however Occupational Therapy is still noting right-sided neglect. Improved from a speech therapy standpoint, no issues from a nursing standpoint, and manager social work indicated no ongoing issues at this point. - Physical Exam General: Alert, Cooperative, No apparent distress Neurological: - - Right neglect Psych/Mental Status: Normal Affect Vital Signs Temp Pulse Resp BP Pulse Ox 37.2 C 84 18 143/81 H 94 08/23/18 07:05 08/23/18 07:05 08/23/18 07:05 08/23/18 07:05 08/23/18 07:05 Oxygen Delivery Method Room Air Weight: 54 kg Body Mass Index (BMI) 22.6 Intake and Output for Last 24 Hours 08/21/18 08/22/18 08/23/18 23:59 23:59 23:59 Intake Total 700 / 700 600 / 600 Balance 700 / 700 600 / 600 Laboratory Tests Past 24 Hrs 08/23/18 05:45 Magnesium 2.1 Medical Necessity - Tobacco Use Smoking Status: Former smoker Tobacco Use: Cigarettes Assessment/Plan All Active Problems (Last Updated 08/16/18 @ 22:40 by Vanesa Tejada) Debility (Acute) Hypokalemia (Acute) Leukocytosis (Acute) 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 Plan ?PT for gait stability ?OT for ADLs ?Bowel protocol ?Analgesics as needed ?Labs reviewed?WBC 12.3, INR 2, AST 44. Patient had a high INR as an inpatient at the outside hospital, reason not clear. Will defer further management per hospitalist recommendation. ?Left POLICY CHANGE CLERK stroke, small right superior cerebellar stroke?on aspirin and Lipitor ?HTN?on lisinopril and hydralazine ?HLD- on atorvastatin ?GI/DVT prophylaxis-on famotidine/Lovenox, SCDs ?Fall precautions ?Hospitalist consult ?Further medical management per hospitalist recommendations ?Follow-up with PCP and neurology on discharge. approved through 09/08/18
[2018-08-23] MEDS: Ferrous Sulfate 325 MG Tablet PO ×2 (12:31→17:17)
[2018-08-23] MEDS: Acetaminophen 325 MG Tablet 650 MG PO (12:50)
[2018-08-23 13:51] VITALS: BP 135/58; PULSE 83
[2018-08-23 13:52] VITALS: BP 135/58; PULSE 83
--- NOTE | 2018-08-23 15:15 | CASEMGMT ---
Social Work Team meeting held today with pt present. Pt is participating in PT/OT/ST. No d/c date set at this time. Will continue with treatment plan and reteam on Monday when family is available. DANEIL Pete
[2018-08-23 22:00] VITALS: BP 142/64; PULSE 76; RESP 16; TEMP 36.3; O2SAT 95
[2018-08-23 22:46] VITALS: PULSE 76
[2018-08-23] MEDS: Atorvastatin Calcium 40 MG Tablet PO (22:46)
[2018-08-24] MEDS: 0.9% NaCl Peripheral Flush Adult/Peds IV ×2 (00:36→20:36)
[2018-08-24 00:45] VITALS: BMI 22.6
--- NOTE | 2018-08-24 03:44 | NURSING ---
REVIEWED AND AGREE WITH ROTARY ENGINE ASSEMBLER'S FIM AND HANDOFF CHARTING.
[2018-08-24 06:56] VITALS: BP 128/81; PULSE 81
[2018-08-24] MEDS: Enoxaparin 40 MG/0.4 ML Syringe SC (06:56)
[2018-08-24] MEDS: hydrALAZINE 25 MG Tablet PO ×3 (06:56→20:11)
[2018-08-24 07:10] VITALS: BP 128/81; PULSE 81; RESP 16; TEMP 36.7; O2SAT 94
[2018-08-24] MEDS: NYSTATIN 500,000 UNIT/5 ML UDC 500000 UNIT PO (07:52)
[2018-08-24] MEDS: Calcium Carb/Vitamin D 1 TABLET Tablet PO ×2 (07:52→17:02)
[2018-08-24] MEDS: Lisinopril 20 MG Tablet PO (07:52)
[2018-08-24] MEDS: Famotidine 20 MG Tablet PO ×2 (07:52→20:30)
[2018-08-24] MEDS: Aspirin E.C. 81 MG Tablet PO (07:52)
[2018-08-24] MEDS: Latanoprost 0.005% 1 Bottle 1 DRP EACH EYE (07:53)
[2018-08-24] MEDS: Menthol/Lanolin/Calamine/Znox 113 GM Tube 1 APPLIC TOPICAL ×2 (07:57→20:13)
--- NOTE | 2018-08-24 12:18 | PN.NEURO_ITS ---
Patient Problems: Active and Suspected Problems (Last Updated 08/16/18 @ 22:40 by Vanesa Tejada) Debility (Acute) Hypokalemia (Acute) Leukocytosis (Acute) Acute ischemic left posterior cerebral artery (SALES PROJECT ADMINISTRATOR) stroke (Acute) Subjective: Sleeping, easily arouses. No new complaints. No GI or complaints. Eating therapies. No pain. - Physical Exam General: Alert, Oriented x3, Cooperative, No apparent distress Neurological: - - right-sided neglect Psych/Mental Status: Normal Affect Vital Signs Temp Pulse Resp BP Pulse Ox 36.7 C 81 16 128/81 H 94 08/24/18 07:10 08/24/18 07:10 08/24/18 07:10 08/24/18 07:10 08/24/18 07:10 Oxygen Delivery Method Room Air Weight: 54 kg Body Mass Index (BMI) 22.6 Intake and Output for Last 24 Hours 08/22/18 08/23/18 08/24/18 23:59 23:59 23:59 Intake Total 600 / 600 120 / 120 120 / 120 Balance 600 / 600 120 / 120 120 / 120 Medical Necessity - Tobacco Use Smoking Status: Former smoker Tobacco Use: Cigarettes Assessment/Plan All Active Problems (Last Updated 08/16/18 @ 22:40 by Vanesa Tejada) Debility (Acute) Hypokalemia (Acute) Leukocytosis (Acute) Acute ischemic left posterior cerebral artery (SALES PROJECT ADMINISTRATOR) stroke (Acute) Aortic aneurysm rupture (Resolved) The patient is a 82 year old F with PMH HTN, HLD, TIA, glaucoma, melanoma, recent abdominal aortic aneurysm rupture status post endovascular repair on 08/10/2018 at [place], [place] complicated by acute left SALES PROJECT ADMINISTRATOR stroke on 08/11/2018, now admitted to [facility] on 08/16/2018 with debility status post acute left SALES PROJECT ADMINISTRATOR stroke, for greater than 3 hours therapy daily with a goal of returning back to her home at or near her prior functional baseline. Plan ?PT for gait stability ?OT for ADLs ?Bowel protocol ?Analgesics as needed ?Labs reviewed?WBC 12.3, INR 2, AST 44. Patient had a high INR as an inpatient at the outside hospital, reason not clear. Will defer further management per hospitalist recommendation. ?Left SALES PROJECT ADMINISTRATOR stroke, small right superior cerebellar stroke?on aspirin and Lipitor. 08/24: Stable ?HTN?on lisinopril and hydralazine. 08/24: Controlled ?HLD- on atorvastatin ?GI/DVT prophylaxis-on famotidine/Lovenox, SCDs ?Fall precautions ?Hospitalist consult ?Further medical management per hospitalist recommendations ?Follow-up with PCP and neurology on discharge. approved through 09/08/18
[2018-08-24] MEDS: Ferrous Sulfate 325 MG Tablet PO ×2 (12:57→17:02)
[2018-08-24 13:11] VITALS: PULSE 78
[2018-08-24 13:50] VITALS: BMI 22.6
--- NOTE | 2018-08-24 15:44 | CASEMGMT ---
Social Work SW spoke with pt daughter Gris and update provided on Team conference. Will reteam on and family is aware. Gris notified that d/c will be set for 09/08/18. Family is looking into SNF placement for continued therapy at time of d/c. SW to follow. DANIEL Pete
--- NOTE | 2018-08-24 16:44 | PN_ITS ---
Patient Problems: Active and Suspected Problems (Last Updated 08/16/18 @ 22:40 by Vanesa Tejada) Debility (Acute) Hypokalemia (Acute) Leukocytosis (Acute) Acute ischemic left posterior cerebral artery (MISSILE TECHNICIAN) stroke (Acute) Subjective: Patient was seen and examined. She appears to be doing well. No new complains Objective: Physical Exam General: Alert, oriented x 1-2, not pale, not jaundice, with neglect and dysarthria HEENT: - - Right-sided homonymous hemianopia Oral: Moist mucosa Neck: Supple Lungs: No rhonchi, No wheeze, No rales, Diminished - Entry diminished b ilaterally Cardiovascular: Regular rate, Regular Rhythm, Normal S1, Normal S2, No murmurs Abdomen: Bowel Sounds Present, Soft, Non Tender, Non-Distended Extremities: No edema Skin: No rashes, No breakdown Musculoskeletal: No Tenderness to Palpation of Joints or Extremities, Arthritic Changes, Muscle Wasting Neurological: - - Severe focal neurological deficit. Right-sided weakness. Right upper extremity and lower extremity weakness. Dysphagia and dysarthria right-sided hemineglect. Right homonymous hemianopia Vitals/I&O's: Vital Signs Temp Pulse Resp BP Pulse Ox 98.0 F 78 16 128/81 H 94 08/24/18 07:10 08/24/18 13:11 08/24/18 07:10 08/24/18 07:10 08/24/18 07:10 Oxygen Delivery Method Room Air Weight: 54 kg Body Mass Index (BMI) 22.6 Intake and Output for Last 24 Hours 08/22/18 08/23/18 08/24/18 23:59 23:59 23:59 Intake Total 600 / 600 120 / 120 120 / 120 Balance 600 / 600 120 / 120 120 / 120 Current Medications Acetaminophen (Tylenol) 650 mg PO Q6H PRN PRN PRN Reason: PAIN Last Admin: 08/23/18 12:50 Dose: 650 mg [facility] (Ecotrin) [facility] Last Admin: 08/24/18 07:52 Dose: 81 mg Atorvastatin Calcium (Lipitor) 40 mg PO QHS [facility] Last Admin: 08/23/18 22:46 Dose: 40 mg Bisacodyl (Dulcolax) 10 mg RECTAL .PRN X 1 PRN PRN Reason: Constipation Calamine/Phenol (Calmoseptine Ointment) 1 applic TOPICAL BID [facility]; Protocol Last Admin: 08/24/18 07:57 Dose: 1 applicatio Calcium/Vitamin D (Os-Chi 500mg + D) 1 tablet PO BIDCM [facility] Last Admin: 08/24/18 07:52 Dose: 1 tablet Enoxaparin Sodium (Lovenox) 40 mg SC DAILY@0600 [facility] Last Admin: 08/24/18 06:56 Dose: 40 mg Famotidine (Pepcid) 20 mg PO BID [facility] Last Admin: 08/24/18 07:52 Dose: 20 mg Ferrous Sulfate (Ferrous Sulfate) 325 mg PO 1200,1700 [facility] Last Admin: 08/24/18 12:57 Dose: 325 mg Hydralazine HCl (Apresoline) 25 mg PO TID [facility] Last Admin: 08/24/18 13:11 Dose: 25 mg Latanoprost (Xalatan Opthalmic) 1 drop EACH EYE DAILY [facility] Last Admin: 08/24/18 07:53 Dose: 1 drop Lisinopril (Zestril) 20 mg PO DAILY [facility] Last Admin: 08/24/18 07:52 Dose: 20 mg Magnesium Hydroxide (Milk Of Magnesia) 30 ml PO .PRN X 1 PRN PRN Reason: Constipation Senna/Docusate Sodium (Senokot-S, Danielle-Colace) 2 tablet PO BID [facility] Last Admin: 08/24/18 07:53 Dose: Not Given Sodium Chloride () 5 - 15 ml IV UD PRN PRN Reason: SALINE FLUSH Last Admin: 08/24/18 00:36 Dose: 10 ml Medical Necessity - Tobacco Use Smoking Status: Former smoker Tobacco Use: Cigarettes Assessment/Plan All Active Problems (Last Updated 08/16/18 @ 22:40 by Vanesa Tejada) Debility (Acute) Hypokalemia (Acute) Leukocytosis (Acute) Acute ischemic left posterior cerebral artery (MISSILE TECHNICIAN) stroke (Acute) Aortic aneurysm rupture (Resolved) 82 y/o female with PMHx of hypertension, hyperlipidemia, h/o TIA who had abdominal aortic aneurysm repair on 08/10/18 complicated by acute left MISSILE TECHNICIAN stroke on 08/11/18 and admitted for acute rehab. 1. Debility secondary to acute left MISSILE TECHNICIAN CVA/right superior cerebellar stroke, undergoing therapy, continue on aspirin, statin, Follow-up on recommendations of therapy team 2. Hypokalemia, resolved, will continue to trend BMP 3. Hypomagnesemia, recheck is 2.1 4. Hypertension, controlled, continue on hydralazine, lisinopril, will monitor 5. Hyperlipidemia, on statin 6. Acute on chronic anemia, secondary to acute blood loss, Hb is stable, on po iron 7. s/p recent AA rupture repair 8. DVT PPx- Lovenox SC Code Visit Inpatient E&M: 53891 Subs Hosp L2
[2018-08-24 20:05] VITALS: BP 127/54; PULSE 78; RESP 18; TEMP 36.6; O2SAT 95
[2018-08-24 20:11] VITALS: BP 127/54; PULSE 85
[2018-08-24] MEDS: Atorvastatin Calcium 40 MG Tablet PO (20:11)
[2018-08-24 22:52] VITALS: BMI 22.6
[2018-08-25 05:44] VITALS: BP 120/54; PULSE 83
[2018-08-25] MEDS: hydrALAZINE 25 MG Tablet PO ×3 (05:44→20:57)
[2018-08-25] MEDS: Enoxaparin 40 MG/0.4 ML Syringe SC (05:48)
[2018-08-25 07:30] VITALS: BP 120/54; PULSE 85; RESP 18; TEMP 36.7; O2SAT 93
[2018-08-25] MEDS: Calcium Carb/Vitamin D 1 TABLET Tablet PO ×2 (07:42→17:18)
[2018-08-25] MEDS: Lisinopril 20 MG Tablet PO (07:42)
[2018-08-25] MEDS: Famotidine 20 MG Tablet PO ×2 (07:42→20:57)
[2018-08-25] MEDS: Latanoprost 0.005% 1 Bottle 1 DRP EACH EYE (07:43)
[2018-08-25] MEDS: Aspirin E.C. 81 MG Tablet PO (07:44)
[2018-08-25] MEDS: Menthol/Lanolin/Calamine/Znox 113 GM Tube 1 APPLIC TOPICAL ×2 (07:47→20:57)
[2018-08-25 11:27] VITALS: BMI 22.6
[2018-08-25] MEDS: Ferrous Sulfate 325 MG Tablet PO ×2 (12:35→17:18)
[2018-08-25 15:20] VITALS: PULSE 84
[2018-08-25] MEDS: 0.9% NaCl Peripheral Flush Adult/Peds IV (18:06)
[2018-08-25 20:34] VITALS: BP 142/59; PULSE 93; RESP 20; TEMP 37.1; O2SAT 95
[2018-08-25 20:43] VITALS: BP 117/56; PULSE 89
[2018-08-25 20:57] VITALS: BP 117/56; PULSE 89
[2018-08-25] MEDS: Atorvastatin Calcium 40 MG Tablet PO (20:57)
[2018-08-26] VITALS (7 sets, daily range): BP systolic 144–159; BP diastolic 64–70; PULSE 76–94; RESP 18; TEMP 36.7–37.1; O2SAT 94–95; BMI 22.6
[2018-08-26] MEDS: Enoxaparin 40 MG/0.4 ML Syringe SC (06:40)
[2018-08-26] MEDS: hydrALAZINE 25 MG Tablet PO ×3 (06:42→22:07)
[2018-08-26] MEDS: Latanoprost 0.005% 1 Bottle 1 DRP EACH EYE (08:34)
[2018-08-26] MEDS: Lisinopril 20 MG Tablet PO (08:34)
[2018-08-26] MEDS: Menthol/Lanolin/Calamine/Znox 113 GM Tube 1 APPLIC TOPICAL ×2 (08:35→22:07)
[2018-08-26] MEDS: Calcium Carb/Vitamin D 1 TABLET Tablet PO ×2 (08:35→16:22)
[2018-08-26] MEDS: Famotidine 20 MG Tablet PO ×2 (08:35→22:07)
[2018-08-26] MEDS: Aspirin E.C. 81 MG Tablet PO (08:35)
--- NOTE | 2018-08-26 12:23 | PCM.PN.HOSP ---
Patient Problems: Active and Suspected Problems (Last Updated 08/16/18 @ 22:40 by Vanesa Tejada) Debility (Acute) Hypokalemia (Acute) Leukocytosis (Acute) Acute ischemic left posterior cerebral artery (APPLIED MATHEMATICIAN) stroke (Acute) Subjective: Seen and examined. She is cooperating with physical therapy. Muscle strength has improved on right upper and lower extremity. But he still has neglect. Objective: General: Alert and awake. Disoriented to place and and time. Patient is still has neglect. HEENT: Right-sided homonymous hemianopia Oral: Dry Mucosa Neck: Supple, No JVD, Negative Carotid Bruits Lungs: No rhonchi, No wheeze, No rales, Diminished - Entry diminished bilaterally Cardiovascular: Regular rate, Regular Rhythm, Normal S1, Normal S2, No murmurs Abdomen: Bowel Sounds Present, Soft, Non Tender, Non-Distended Extremities: No edema, Capillary Refill Less than 3 Seconds Skin: No rashes, No breakdown Musculoskeletal: No Tenderness to Palpation of Joints or Extremities, Arthritic Changes, Muscle Wasting Neurological: - Right upper extremity and lower extremity weakness have improved. Right upper extremity 4+/5. RLE 4/5. Dysphagia and dysarthria right-sided hemineglect. Right homonymous hemianopia Vitals/I&O's: Vital Signs Temp Pulse Resp BP Pulse Ox 98.1 F 76 18 144/64 H 95 08/26/18 08:13 08/26/18 08:13 08/26/18 08:13 08/26/18 08:13 08/26/18 08:13 Oxygen Delivery Method Room Air Weight: 119 lb 0.794 oz Body Mass Index (BMI) 22.6 Intake and Output for Last 24 Hours 08/24/18 08/25/18 08/26/18 23:59 23:59 23:59 Intake Total 360 / 360 840 / 840 120 / 120 Balance 360 / 360 840 / 840 120 / 120 Current Medications Acetaminophen (Tylenol) 650 mg PO Q6H PRN PRN PRN Reason: PAIN Last Admin: 08/23/18 12:50 Dose: 650 mg [facility] ([facility]) [facility] Last Admin: 08/26/18 08:35 Dose: 81 mg Atorvastatin Calcium (Lipitor) 40 mg PO QHS [facility] Last Admin: 08/25/18 20:57 Dose: 40 mg Bisacodyl (Dulcolax) 10 mg RECTAL .PRN X 1 PRN PRN Reason: Constipation Calamine/Phenol (Calmoseptine Ointment) 1 applic TOPICAL BID [facility]; Protocol Last Admin: 08/26/18 08:35 Dose: 1 applicatio Calcium/Vitamin D (Os-Chi 500mg + D) 1 tablet PO BIDCM [facility] Last Admin: 08/26/18 08:35 Dose: 1 tablet Enoxaparin Sodium (Lovenox) 40 mg SC DAILY@0600 [facility] Last Admin: 08/26/18 06:40 Dose: 40 mg Famotidine (Pepcid) 20 mg PO BID [facility] Last Admin: 08/26/18 08:35 Dose: 20 mg Ferrous Sulfate (Ferrous Sulfate) 325 mg PO 1200,1700 [facility] Last Admin: 08/25/18 17:18 Dose: 325 mg Hydralazine HCl (Apresoline) 25 mg PO TID [facility] Last Admin: 08/26/18 06:42 Dose: 25 mg Latanoprost (Xalatan Opthalmic) 1 drop EACH EYE DAILY [facility] Last Admin: 08/26/18 08:34 Dose: 1 drop Lisinopril (Zestril) 20 mg PO DAILY [facility] Last Admin: 08/26/18 08:34 Dose: 20 mg Magnesium Hydroxide (Milk Of Magnesia) 30 ml PO .PRN X 1 PRN PRN Reason: Constipation Senna/Docusate Sodium (Senokot-S, Danielle-Colace) 2 tablet PO BID [facility] Last Admin: 08/26/18 08:35 Dose: Not Given Sodium Chloride () 5 - 15 ml IV UD PRN PRN Reason: SALINE FLUSH Last Admin: 08/25/18 18:06 Dose: 10 ml Medical Necessity - Tobacco Use Smoking Status: Former smoker Tobacco Use: Cigarettes Assessment/Plan All Active Problems (Last Updated 08/16/18 @ 22:40 by Vanesa Tejada) Debility (Acute) Hypokalemia (Acute) Leukocytosis (Acute) Acute ischemic left posterior cerebral artery (APPLIED MATHEMATICIAN) stroke (Acute) Aortic aneurysm rupture (Resolved) The patient is a 82 year old F with multiple comorbidities including hypertension, dyslipidemia, TIA had recent abdominal aortic aneurysm rupture status post endovascular repair on 08/10/2018 at [facility], [place] complicated by acute left APPLIED MATHEMATICIAN stroke on 08/11/2018, being admitted to [facility] on 08/16/2018 with debility status post acute left APPLIED MATHEMATICIAN and small right superior cerebellar stroke. There patient was found to have right-sided weakness with neglect and left gaze deviation with NIH stroke scale 16. 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 Patient was not a candidate for TPA because of recent surgery and not endovascular candidate due to matched defect found after CT perfusion study. 1. Acute left APPLIED MATHEMATICIAN stroke and small right superior cerebellar stroke on 08/11/2018 with major debility: Patient is being admitted in acute rehab. PT OT and OT. Bladder and bowel protocol. On aspirin and atorvastatin. 2. Hypertension: On lisinopril and hydralazine 3. Dyslipidemia: On atorvastatin. LDL cholesterol was 50 on 08/11/2018 4. Leukocytosis: Patient WBC count was 17.4 thousand on 08/12/2018. Currently it is about 12,000. Blood cultures they are it was found negative. Patient does not have symptoms and signs of infection including normal temperature, normal heart rate. Pulse ox 97% on room air. Lactic acid was normal on 08/14/2018. I think leukocytosis may be inflammatory secondary to stress from surgery and lateral stroke. WBC count is improving. Repeat CBC on Monday and if is still elevated may need UA with urine culture and chest x-ray. 5. Hypokalemia: Patient is on potassium replacement. Last potassium is 3.6 on 08/20. Magnesium 2.1. 6. Acute on chronic anemia, probably from surgical loss during surgery in the leg in the hospital. Patient H&H was 7.9/22.9 on 08/15/2018 and here 8.9/27. Will start on the ferrous sulfate. 7. Recent abdominal aortic aneurysm rupture status post endovascular repair complicated with stroke as mentioned above: Remove the dressing from right groin. With nursing staff DVT prophylaxis on Lovenox 40 mg subcu daily. Active Medications Acetaminophen (Tylenol) 650 mg PO Q6H PRN PRN PRN Reason: PAIN Last Admin: 08/23/18 12:50 Dose: 650 mg Aspirin (Ecotrin) 81 mg PO DAILYCM [facility] Last Admin: 08/26/18 08:35 Dose: 81 mg Atorvastatin Calcium (Lipitor) 40 mg PO QHS [facility] Last Admin: 08/25/18 20:57 Dose: 40 mg Bisacodyl (Dulcolax) 10 mg RECTAL .PRN X 1 PRN PRN Reason: Constipation Calamine/Phenol (Calmoseptine Ointment) 1 applic TOPICAL BID [facility]; Protocol Last Admin: 08/26/18 08:35 Dose: 1 applicatio Calcium/Vitamin D (Os-Chi 500mg + D) 1 tablet PO BIDCM [facility] Last Admin: 08/26/18 08:35 Dose: 1 tablet Enoxaparin Sodium (Lovenox) 40 mg SC DAILY@0600 [facility] Last Admin: 08/26/18 06:40 Dose: 40 mg Famotidine (Pepcid) 20 mg PO BID [facility] Last Admin: 08/26/18 08:35 Dose: 20 mg Ferrous Sulfate (Ferrous Sulfate) 325 mg PO 1200,1700 [facility] Last Admin: 08/25/18 17:18 Dose: 325 mg Hydralazine HCl (Apresoline) 25 mg PO TID [facility] Last Admin: 08/26/18 06:42 Dose: 25 mg Latanoprost (Xalatan Opthalmic) 1 drop EACH EYE DAILY [facility] Last Admin: 08/26/18 08:34 Dose: 1 drop Lisinopril (Zestril) 20 mg PO DAILY [facility] Last Admin: 08/26/18 08:34 Dose: 20 mg Magnesium Hydroxide (Milk Of Magnesia) 30 ml PO .PRN X 1 PRN PRN Reason: Constipation Senna/Docusate Sodium (Senokot-S, Danielle-Colace) 2 tablet PO BID [facility] Last Admin: 08/26/18 08:35 Dose: Not Given Sodium Chloride () 5 - 15 ml IV UD PRN PRN Reason: SALINE FLUSH Last Admin: 08/25/18 18:06 Dose: 10 ml Code Visit Inpatient E&M: 47537 Subs Hosp L2
--- NOTE | 2018-08-26 12:28 | PN_ITS ---
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 She is cooperating with physical therapy. Muscle strength has improved on right upper and lower extremity. But he still has neglect. Objective: General: Alert and awake. Disoriented to place and and time. Patient is still has neglect. HEENT: Right-sided homonymous hemianopia Oral: Dry Mucosa Neck: Supple, No JVD, Negative Carotid Bruits Lungs: No rhonchi, No wheeze, No rales, Diminished - Entry diminished bilaterally Cardiovascular: Regular rate, Regular Rhythm, Normal S1, Normal S2, No murmurs Abdomen: Bowel Sounds Present, Soft, Non Tender, Non-Distended Extremities: No edema, Capillary Refill Less than 3 Seconds Skin: No rashes, No breakdown Musculoskeletal: No Tenderness to Palpation of Joints or Extremities, Arthritic Changes, Muscle Wasting Neurological: - Right upper extremity and lower extremity weakness have improved. Right upper extremity 4+/5. RLE 4/5. Dysphagia and dysarthria right-sided hemineglect. Right homonymous hemianopia Vitals/I&O's: Vital Signs Temp Pulse Resp BP Pulse Ox 98.1 F 76 18 144/64 H 95 08/26/18 08:13 08/26/18 08:13 08/26/18 08:13 08/26/18 08:13 08/26/18 08:13 Oxygen Delivery Method Room Air Weight: 119 lb 0.794 oz Body Mass Index (BMI) 22.6 Intake and Output for Last 24 Hours 08/24/18 08/25/18 08/26/18 23:59 23:59 23:59 Intake Total 360 / 360 840 / 840 120 / 120 Balance 360 / 360 840 / 840 120 / 120 Current Medications Acetaminophen (Tylenol) 650 mg PO Q6H PRN PRN PRN Reason: PAIN Last Admin: 08/23/18 12:50 Dose: 650 mg [facility]) [facility] Last Admin: 08/26/18 08:35 Dose: 81 mg Atorvastatin Calcium (Lipitor) 40 mg PO QHS [facility] Last Admin: 08/25/18 20:57 Dose: 40 mg Bisacodyl (Dulcolax) 10 mg RECTAL .PRN X 1 PRN PRN Reason: Constipation Calamine/Phenol (Calmoseptine Ointment) 1 applic TOPICAL BID [facility]; Protocol Last Admin: 08/26/18 08:35 Dose: 1 applicatio Calcium/Vitamin D (Os-Chi 500mg + D) 1 tablet PO BIDCM [facility] Last Admin: 08/26/18 08:35 Dose: 1 tablet Enoxaparin Sodium (Lovenox) 40 mg SC DAILY@0600 [facility] Last Admin: 08/26/18 06:40 Dose: 40 mg Famotidine (Pepcid) 20 mg PO BID [facility] Last Admin: 08/26/18 08:35 Dose: 20 mg Ferrous Sulfate (Ferrous Sulfate) 325 mg PO 1200,1700 [facility] Last Admin: 08/25/18 17:18 Dose: 325 mg Hydralazine HCl (Apresoline) 25 mg PO TID [facility] Last Admin: 08/26/18 06:42 Dose: 25 mg Latanoprost (Xalatan Opthalmic) 1 drop EACH EYE DAILY [facility] Last Admin: 08/26/18 08:34 Dose: 1 drop Lisinopril (Zestril) 20 mg PO DAILY [facility] Last Admin: 08/26/18 08:34 Dose: 20 mg Magnesium Hydroxide (Milk Of Magnesia) 30 ml PO .PRN X 1 PRN PRN Reason: Constipation Senna/Docusate Sodium (Senokot-S, Danielle-Colace) 2 tablet PO BID [facility] Last Admin: 08/26/18 08:35 Dose: Not Given Sodium Chloride () 5 - 15 ml IV UD PRN PRN Reason: SALINE FLUSH Last Admin: 08/25/18 18:06 Dose: 10 ml Medical Necessity - Tobacco Use Smoking Status: Former smoker Tobacco Use: Cigarettes Assessment/Plan All Active Problems (Last Updated 08/16/18 @ 22:40 by Vanesa Tejada) Debility (Acute) Hypokalemia (Acute) Leukocytosis (Acute) 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 There patient was found to have right- sided weakness with neglect and left gaze deviation with NIH stroke scale 16. CT angiogram showed left proximal YARN WASHER occlusion and right PICC occlusion. Patient was not a candidate for TPA because of recent surgery and not endovascular candidate due to matched defect found after CT perfusion study. 1. Acute left YARN WASHER stroke and small right superior cerebellar stroke on 08/11/2018 with major debility: Patient is being admitted in acute rehab. PT OT and OT. Bladder and bowel protocol. On aspirin and atorvastatin. 2. Hypertension: On lisinopril and hydralazine 3. Dyslipidemia: On atorvastatin. LDL cholesterol was 50 on 08/11/2018 4. Leukocytosis: Patient WBC count was 17.4 thousand on 08/12/2018. Currently it is about 12,000. Blood cultures they are it was found negative. Patient does not have symptoms and signs of infection including normal temperature, normal heart rate. Pulse ox 97% on room air. Lactic acid was normal on 08/14/2018. I think leukocytosis may be inflammatory secondary to stress from surgery and lateral stroke. WBC count is improving. Repeat CBC on Monday and if is still elevated may need UA with urine culture and chest x-ray. 5. Hypokalemia: Patient is on potassium replacement. Last potassium is 3.6 on 08/20. Magnesium 2.1. 6. Acute on chronic anemia, probably from surgical loss during surgery in the leg in the hospital. Patient H&H was 7.9/22.9 on 08/15/2018 and here 8.9/27. Will start on the ferrous sulfate. 7. Recent abdominal aortic aneurysm rupture status post endovascular repair complicated with stroke as mentioned above: Remove the dressing from right groin. With nursing staff DVT prophylaxis on Lovenox 40 mg subcu daily. Active Medications Acetaminophen (Tylenol) 650 mg PO Q6H PRN PRN PRN Reason: PAIN Last Admin: 08/23/18 12:50 Dose: 650 mg Aspirin (Ecotrin) 81 mg PO DAILYCM [facility] Last Admin: 08/26/18 08:35 Dose: 81 mg Atorvastatin Calcium (Lipitor) 40 mg PO QHS [facility] Last Admin: 08/25/18 20:57 Dose: 40 mg Bisacodyl (Dulcolax) 10 mg RECTAL .PRN X 1 PRN PRN Reason: Constipation Calamine/Phenol (Calmoseptine Ointment) 1 applic TOPICAL BID [facility]; Protocol Last Admin: 08/26/18 08:35 Dose: 1 applicatio Calcium/Vitamin D (Os-Chi 500mg + D) 1 tablet PO BIDCM [facility] Last Admin: 08/26/18 08:35 Dose: 1 tablet Enoxaparin Sodium (Lovenox) 40 mg SC DAILY@0600 [facility] Last Admin: 08/26/18 06:40 Dose: 40 mg Famotidine (Pepcid) 20 mg PO BID [facility] Last Admin: 08/26/18 08:35 Dose: 20 mg Ferrous Sulfate (Ferrous Sulfate) 325 mg PO 1200,1700 [facility] Last Admin: 08/25/18 17:18 Dose: 325 mg Hydralazine HCl (Apresoline) 25 mg PO TID [facility] Last Admin: 08/26/18 06:42 Dose: 25 mg Latanoprost (Xalatan Opthalmic) 1 drop EACH EYE DAILY [facility] Last Admin: 08/26/18 08:34 Dose: 1 drop Lisinopril (Zestril) 20 mg PO DAILY [facility] Last Admin: 08/26/18 08:34 Dose: 20 mg Magnesium Hydroxide (Milk Of Magnesia) 30 ml PO .PRN X 1 PRN PRN Reason: Constipation Senna/Docusate Sodium (Senokot-S, Danielle-Colace) 2 tablet PO BID [facility] Last Admin: 08/26/18 08:35 Dose: Not Given Sodium Chloride () 5 - 15 ml IV UD PRN PRN Reason: SALINE FLUSH Last Admin: 08/25/18 18:06 Dose: 10 ml Code Visit Inpatient E&M: 36085 Subs Hosp L2
[2018-08-26] MEDS: Ferrous Sulfate 325 MG Tablet PO ×2 (12:59→16:22)
[2018-08-26] MEDS: Senna/Docusate Sodium 1 Tablet 2 TABLET PO (22:07)
[2018-08-26] MEDS: Atorvastatin Calcium 40 MG Tablet PO (22:07)
[2018-08-27] VITALS (7 sets, daily range): BP systolic 136–144; BP diastolic 60–64; PULSE 78–87; RESP 17–20; TEMP 37–37.2; O2SAT 95; BMI 22.6
[2018-08-27] MEDS: hydrALAZINE 25 MG Tablet PO ×3 (06:21→20:34)
[2018-08-27] MEDS: Enoxaparin 40 MG/0.4 ML Syringe SC (06:21)
[2018-08-27 06:24] LABS: Anion Gap 5 (5-15); BUN 15 mg/dL (7-18); BUN/Creat Ratio 28.8 RATIO (10-20); Calcium,Total 7.5 mg/dL (8.5-10.1); Chloride 103 mmol/L (98-107); Creatinine, Serum 0.52 mg/dL (0.55-1.02); EST Glomerular Filtration Rate 120 mL/min (>60); Est Glom Filt Rate - Afr Amer 145 mL/min (>60); Glucose 117 mg/dL (74-106); Potassium 2.4 mmol/L (3.5-5.1); Sodium Level 137 mmol/L (136-145)
--- NOTE | 2018-08-27 06:28 | NURSING ---
LAB CALLS WITH PANIC VALUE OF PT'S POTASSIUM LEVEL THIS AM OF 2.4. PAGE PLACED TO HOSPITALIST. PT REPORTS TO FEEL FINE. HAS SLEPT WELL THIS SHIFT.
--- NOTE | 2018-08-27 06:33 | NURSING ---
DR MITTAL NOTIFIED OF PT'S POTASSIUM LEVEL THIS AM. ORDERS GIVEN.
[2018-08-27 07:34] LABS: Magnesium 1.4 mg/dL (1.6-2.6)
[2018-08-27] MEDS: Menthol/Lanolin/Calamine/Znox 113 GM Tube 1 APPLIC TOPICAL ×2 (09:00→20:35)
[2018-08-27] MEDS: Famotidine 20 MG Tablet PO ×2 (09:00→20:35)
[2018-08-27] MEDS: Calcium Carb/Vitamin D 1 TABLET Tablet PO ×2 (09:00→16:21)
[2018-08-27] MEDS: Latanoprost 0.005% 1 Bottle 1 DRP EACH EYE (09:00)
[2018-08-27] MEDS: Lisinopril 20 MG Tablet PO (09:00)
[2018-08-27] MEDS: Aspirin E.C. 81 MG Tablet PO (09:00)
[2018-08-27] MEDS: Magnesium Oxide 400 MG Tablet PO ×3 (10:01→16:20)
--- NOTE | 2018-08-27 10:19 | PCM.PN.NEU ---
Patient Problems: Active and Suspected Problems (Last Updated 08/16/18 @ 22:40 by Vanesa Tejada) Debility (Acute) Hypokalemia (Acute) Leukocytosis (Acute) Acute ischemic left posterior cerebral artery (SUPERVISOR BOILER REPAIR) stroke (Acute) Subjective: No issues overnight. Care discussed with nursing staff. Low Magnesium , K, being replaced by hospitalist. - Physical Exam General: Alert HEENT: Normocephalic Neck: Supple Lungs: Normal air movement Cardiovascular: Normal S1, Normal S2 Abdomen: Bowel Sounds Present Extremities: No cyanosis Neurological: - - awake, alert, CN- pupils BERL, EOMI intact, right homonymous hemianopia, power 5/5 left UE, LE, Right UE -3/5 and +4/5 Right LE, right sensory loss, extinction present right side, cerebellar signs could not be assessed on the right, Reflexes + B/L B/S/T/K/A, gait deferred Psych/Mental Status: Normal Affect Vital Signs Temp Pulse Resp BP Pulse Ox 99 F 80 20 H 144/64 H 95 08/27/18 08:04 08/27/18 08:04 08/27/18 08:04 08/27/18 06:21 08/27/18 08:04 Oxygen Delivery Method Room Air Weight: 54 kg Body Mass Index (BMI) 22.6 Intake and Output for Last 24 Hours 08/25/18 08/26/18 08/27/18 23:59 23:59 23:59 Intake Total 840 / 840 300 / 300 Balance 840 / 840 300 / 300 Laboratory Tests Past 24 Hrs 08/27/18 08/27/18 05:22 05:22 Sodium 137 Potassium 2.4 L* Chloride 103 Carbon Dioxide 29.0 Anion Gap 5 BUN 15 Creatinine 0.52 L Estim Creat Clear Calc 34.90 Est GFR (MDRD) Af Amer 145 Est GFR (MDRD) Non-Af 120 BUN/Creatinine Ratio 28.8 H Glucose 117 H Calcium 7.5 L Magnesium 1.4 L Medical Necessity - Tobacco Use Smoking Status: Former smoker Tobacco Use: Cigarettes Assessment/Plan All Active Problems (Last Updated 08/16/18 @ 22:40 by Vanesa Tejada) Debility (Acute) Hypokalemia (Acute) Leukocytosis (Acute) Acute ischemic left posterior cerebral artery (SUPERVIS[employer] REPAIR) stroke (Acute) Aortic aneurysm rupture (Resolved) The patient is a 82 year old F with PMH HTN, HLD, TIA, glaucoma, melanoma, recent abdominal aortic aneurysm rupture status post endovascular repair on 08/10/2018 at [place], [place] complicated by acute left SUPERVISOR BOILER REPAIR stroke on 08/11/2018, now admitted to [facility] on 08/16/2018 with debility status post acute left SUPERVISOR BOIL[employer] REPAIR stroke, for greater than 3 hours therapy daily with a goal of returning back to her home at or near her prior functional baseline. Patient was initially admitted to [facility] in [place] with abdominal pain was found ruptured abdominal aortic aneurysm was later transferred to [facility] in [place] where she underwent endovascular repair on 08/10/2018, then later on 08/11/2018 around 8 AM she was found to have left gaze deviation with right-sided weakness and neglect with NIHSS 16, CT head showed acute left SUPERVISOR BOILER REPAIR stroke and small right superior cerebellar stroke, CT angiogram showed left proximal SUPERVISOR BOIL[employer] REPAIR occlusion and right PICA occlusion, CT perfusion reported to show CBF volume 30 mL, perfusion volume 37 mL, mismatch volume 7 mL with mismatch ratio of 1.2, she was not a TPA candidate due to recent surgery and was not an endovascular candidate due to matched defect. At present patient continues to have severe focal neurological deficits in the form of right homonymous hemianopia with dysarthria extinction and right-sided weakness. Per documentation she lives in a private home with no steps. At present patient denies any headache dizziness, new onset focal motor weakness sensory loss or aphasia. Patient is a poor historian and history cannot be obtained from the patient, history is obtained from medical records and documentation Plan ?PT for gait stability ?OT for ADLs ?Bowel protocol ?Analgesics as needed ?Labs reviewed?WBC 12.3, INR 2, AST 44. Patient had a high INR as an inpatient at the outside hospital, reason not clear. Will defer further management per hospitalist recommendation. -Repeat K+, Mg, INR and AST. K and Magnesium replacement per hospitalist. ?Left SUPERVISOR BOILER REPAIR stroke, small right superior cerebellar stroke?on aspirin and Lipitor ?HTN?on lisinopril and hydralazine ?HLD- on atorvastatin ?GI/DVT prophylaxis-on famotidine/Lovenox, SCDs ?Fall precautions ?Hospitalist consult ?Further medical management per hospitalist recommendations ?Follow-up with PCP and neurology on discharge.
--- NOTE | 2018-08-27 10:23 | PN.NEURO_ITS ---
Patient Problems: Active and Suspected Problems (Last Updated 08/16/18 @ 22:40 by Vanesa Tejada) Debility (Acute) Hypokalemia (Acute) Leukocytosis (Acute) Acute ischemic left posterior cerebral artery (INSTRUMENT TECH) stroke (Acute) Subjective: No issues overnight. Care discussed with nursing staff. Low Magnesium , K, being replaced by hospitalist. - Physical Exam General: Alert HEENT: Normocephalic Neck: Supple Lungs: Normal air movement Cardiovascular: Normal S1, Normal S2 Abdomen: Bowel Sounds Present Extremities: No cyanosis Neurological: - - awake, alert, CN- pupils BERL, EOMI intact, right homonymous hemianopia, power 5/5 left UE, LE, Right UE -3/5 and +4/5 Right LE, right sensory loss, extinction present right side, cerebellar signs could not be assessed on the right, Reflexes + B/L B/S/T/K/A, gait deferred Psych/Mental Status: Normal Affect Vital Signs Temp Pulse Resp BP Pulse Ox 99 F 80 20 H 144/64 H 95 08/27/18 08:04 08/27/18 08:04 08/27/18 08:04 08/27/18 06:21 08/27/18 08:04 Oxygen Delivery Method Room Air Weight: 54 kg Body Mass Index (BMI) 22.6 Intake and Output for Last 24 Hours 08/25/18 08/26/18 08/27/18 23:59 23:59 23:59 Intake Total 840 / 840 300 / 300 Balance 840 / 840 300 / 300 Laboratory Tests Past 24 Hrs 08/27/18 08/27/18 05:22 05:22 Sodium 137 Potassium 2.4 L* Chloride 103 Carbon Dioxide 29.0 Anion Gap 5 BUN 15 Creatinine 0.52 L Estim Creat Clear Calc 34.90 Est GFR (MDRD) Af Amer 145 Est GFR (MDRD) Non-Af 120 BUN/Creatinine Ratio 28.8 H Glucose 117 H Calcium 7.5 L Magnesium 1.4 L Medical Necessity - Tobacco Use Smoking Status: Former smoker Tobacco Use: Cigarettes Assessment/Plan All Active Problems (Last Updated 08/16/18 @ 22:40 by Vanesa Tejada) Debility (Acute) Hypokalemia (Acute) Leukocytosis (Acute) Acute ischemic left posterior cerebral artery (INSTRUMENT TECH) stroke (Acute) Aortic aneurysm rupture (Resolved) The patient is a 82 year old F with PMH HTN, HLD, TIA, glaucoma, melanoma, recent abdominal aortic aneurysm rupture status post endovascular repair on 08/10/2018 at [place], [place] complicated by acute left INSTRUMENT TECH stroke on 08/11/2018, now admitted to [facility] on 08/16/2018 with debility status post acute left INSTRUMENT TECH stroke, for greater than 3 hours therapy daily with a goal of returning back to her home at or near her prior functional baseline. Patient was initially admitted to [facility] in [place] with abdominal pain was found ruptured abdominal aortic aneurysm was later transferred to [facility] in [place] where she underwent endovascular repair on 08/10/2018, then later on 08/11/2018 around 8 AM she was found to have left gaze deviation with right-sided weakness and neglect with NIHSS 16, CT head showed acute left INSTRUMENT TECH stroke and small right superior cerebellar stroke, CT angiogram showed left proximal INSTRUMENT TECH occlusion and right PICA occlusion, CT perfusion reported to show CBF volume 30 mL, perfusion volume 37 mL, mismatch volume 7 mL with mismatch ratio of 1.2, she was not a TPA candidate due to recent surgery and was not an endovascular candidate due to matched defect. At present patient continues to have severe focal neurological deficits in the form of right homonymous hemianopia with dysarthria extinction and right-sided weakness. Per documentation she lives in a private home with no steps. At present patient denies any headache dizziness, new onset focal motor weakness sensory loss or aphasia. Patient is a poor historian and history cannot be obtained from the patient, history is obtained from medical records and documentation Plan ?PT for gait stability ?OT for ADLs ?Bowel protocol ?Analgesics as needed ?Labs reviewed?WBC 12.3, INR 2, AST 44. Patient had a high INR as an inpatient at the outside hospital, reason not clear. Will defer further management per hospitalist recommendation. -Repeat K+, Mg, INR and AST. K and Magnesium replacement per hospitalist. ?Left INSTRUMENT TECH stroke, small right superior cerebellar stroke?on aspirin and Lipitor ?HTN?on lisinopril and hydralazine ?HLD- on atorvastatin ?GI/DVT prophylaxis-on famotidine/Lovenox, SCDs ?Fall precautions ?Hospitalist consult ?Further medical management per hospitalist recommendations ?Follow-up with PCP and neurology on discharge.
[2018-08-27] MEDS: Ferrous Sulfate 325 MG Tablet PO ×2 (12:11→16:22)
[2018-08-27 12:30] LABS: International Normalized Ratio 1.2; Prothrombin Time (Protime)PT. 14.9 SECONDS (11.7-14.9)
[2018-08-27 12:36] LABS: Potassium 3.1 mmol/L (3.5-5.1)
[2018-08-27 12:48] LABS: AST(SGOT) 35 U/L (15-37)
--- NOTE | 2018-08-27 13:53 | PCM.PN.HOSP ---
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 Stool softeners are being held. Hypokalemia and hypomagnesemia. Vitals/I&O's: Vital Signs Temp Pulse Resp BP Pulse Ox 99 F 78 20 H 143/60 H 95 08/27/18 08:04 08/27/18 13:09 08/27/18 08:04 08/27/18 13:09 08/27/18 08:04 Oxygen Delivery Method Room Air Weight: 119 lb 0.794 oz Body Mass Index (BMI) 22.6 Intake and Output for Last 24 Hours 08/25/18 08/26/18 08/27/18 23:59 23:59 23:59 Intake Total 840 / 840 300 / 300 Balance 840 / 840 300 / 300 General: Alert, Cooperative, Disoriented - 2 times HEENT: Atraumatic, PERRLA, EOMI, Normocephalic Oral: Dry Mucosa Neck: Supple, No JVD, Negative Carotid Bruits Lungs: Clear to auscultation, Normal air movement Cardiovascular: Regular rate, Regular Rhythm, Normal S1, Normal S2, No murmurs Abdomen: Bowel Sounds Present, Soft, Non Tender Extremities: No edema, Capillary Refill Less than 3 Seconds Skin: No rashes, No breakdown Musculoskeletal: No Tenderness to Palpation of Joints or Extremities Neurological: Cranial nerves II-XII grossly intact, - - Right upper extremity and lower extremity weakness have improved. Right upper extremity 4+/5. RLE 4/5. Dysphagia and dysarthria right-sided hemineglect. Right homonymous hemianopia Psych/Mental Status: Normal Affect, Appropriate Laboratory Results 08/27/18 05:22: Sodium 137, Potassium 2.4 L*, Chloride 103, Carbon Dioxide 29.0, Anion Gap 5, BUN 15, Creatinine 0.52 L, Estim Creat Clear Calc 34.90, Est GFR (MDRD) Af Amer 145, Est GFR (MDRD) Non-Af 120, BUN/Creatinine Ratio 28.8 H, Glucose 117 H, Calcium 7.5 L 08/27/18 05:22: Magnesium 1.4 L 08/27/18 12:00: Potassium 3.1 L 08/27/18 12:00: AST 35 08/27/18 12:00: PT 14.9, INR 1.2 Current Medications Acetaminophen (Tylenol) 650 mg PO Q6H PRN PRN PRN Reason: PAIN Last Admin: 08/23/18 12:50 Dose: 650 mg [facility]) [facility] Last Admin: 08/27/18 09:00 Dose: 81 mg Atorvastatin Calcium (Lipitor) 40 mg PO QHS [facility] Last Admin: 08/26/18 22:07 Dose: 40 mg Bisacodyl (Dulcolax) 10 mg RECTAL .PRN X 1 PRN PRN Reason: Constipation Calamine/Phenol (Calmoseptine Ointment) 1 applic TOPICAL BID [facility]; Protocol Last Admin: 08/27/18 09:00 Dose: 1 applicatio Calcium/Vitamin D (Os-Chi 500mg + D) [facility] Last Admin: 08/27/18 09:00 Dose: 1 tablet Enoxaparin Sodium (Lovenox) 40 mg SC DAILY@0600 [facility] Last Admin: 08/27/18 06:21 Dose: 40 mg Famotidine (Pepcid) 20 mg PO BID [facility] Last Admin: 08/27/18 09:00 Dose: 20 mg Ferrous Sulfate (Ferrous Sulfate) 325 mg PO 1200,1700 [facility] Last Admin: 08/27/18 12:11 Dose: 325 mg Hydralazine HCl (Apresoline) 25 mg PO TID [facility] Last Admin: 08/27/18 13:09 Dose: 25 mg Latanoprost (Xalatan Opthalmic) 1 drop EACH EYE DAILY [facility] Last Admin: 08/27/18 09:00 Dose: 1 drop Lisinopril (Zestril) 20 mg PO DAILY [facility] Last Admin: 08/27/18 09:00 Dose: 20 mg Magnesium Oxide (Mag-Ox 400) 400 mg PO TIDCM [facility] Stop: 08/29/18 09:01 Last Admin: 08/27/18 12:11 Dose: 400 mg Potassium Chloride (K-Dur) 40 meq PO TIDCM [facility] Last Admin: 08/27/18 12:11 Dose: 40 meq Senna/Docusate Sodium (Senokot-S, Danielle-Colace) 2 tablet PO BID PRN PRN PRN Reason: constipation Sodium Chloride () 5 - 15 ml IV UD PRN PRN Reason: SALINE FLUSH Last Admin: 08/25/18 18:06 Dose: 10 ml Medical Necessity - Tobacco Use Smoking Status: Former smoker Tobacco Use: Cigarettes Assessment/Plan All Active Problems (Last Updated 08/16/18 @ 22:40 by Vanesa Tejada) Debility (Acute) Hypokalemia (Acute) Leukocytosis (Acute) Acute ischemic left posterior cerebral artery (CHEMICAL ENGINEERING TECHNICIAN) stroke (Acute) Aortic aneurysm rupture (Resolved) The patient is a 82 year old F with multiple comorbidities including hypertension, dyslipidemia, TIA had recent abdominal aortic aneurysm rupture status post endovascular repair on 08/10/2018 at [place] complicated by acute left CHEMICAL ENGINEERING TECHNICIAN stroke on 08/11/2018, being admitted to [facility] on 08/16/2018 with debility status post acute left CHEMICAL ENGINEERING TECHNICIAN and small right superior cerebellar stroke. There patient was found to have right-sided weakness with neglect and left gaze deviation with NIH stroke scale 16. CT angiogram showed left proximal CHEMICAL ENGINEERING TECHNICIAN occlusion and right PICC occlusion. Patient was not a candidate for TPA because of recent surgery and not endovascular candidate due to matched defect found after CT perfusion study. 1. Acute left CHEMICAL ENGINEERING TECHNICIAN stroke and small right superior cerebellar stroke on 08/11/2018 with major debility: Patient is being admitted in acute rehab. PT OT and OT. Bladder and bowel protocol. On aspirin and atorvastatin. 2. Hypertension: On lisinopril and hydralazine 3. Dyslipidemia: On atorvastatin. LDL cholesterol was 50 on 08/11/2018 4. Leukocytosis: Resolved. WBC count 9.7 thousand 5. Chronic hypokalemia and hypomagnesemia: K2.4. Magnesium 1.4. Potassium and magnesium are being replaced. Last K3.1. If hypokalemia and hypomagnesemia does not get better even after improvement of diarrhea, consider nephrology consult. 6. Acute on chronic anemia, probably from surgical loss during surgery in the leg in the hospital. Patient H&H was 7.9/22.9 on 08/15/2018 and here 8.9/27. Will start on the ferrous sulfate. 7. Recent abdominal aortic aneurysm rupture status post endovascular repair complicated with stroke as mentioned above: Remove the dressing from right groin. With nursing staff DVT prophylaxis on Lovenox 40 mg subcu daily. Active Medications Acetaminophen (Tylenol) 650 mg PO Q6H PRN PRN PRN Reason: PAIN Last Admin: 08/23/18 12:50 Dose: 650 mg [facility]in [facility]Ecotrin) [facility] Last Admin: 08/27/18 09:00 Dose: 81 mg Atorvastatin Calcium (Lipitor) 40 mg PO QHS [facility] Last Admin: 08/26/18 22:07 Dose: 40 mg Bisacodyl (Dulcolax) 10 mg RECTAL .PRN X 1 PRN PRN Reason: Constipation Calamine/Phenol (Calmoseptine Ointment) 1 applic TOPICAL BID [facility]; Protocol Last Admin: 08/27/18 09:00 Dose: 1 applicatio Calcium/Vitamin D (Os-Chi 500mg + D) [facility] Last Admin: 08/27/18 09:00 Dose: 1 tablet Enoxaparin Sodium (Lovenox) 40 mg SC DAILY@0600 [facility] Last Admin: 08/27/18 06:21 Dose: 40 mg Famotidine (Pepcid) 20 mg PO BID [facility] Last Admin: 08/27/18 09:00 Dose: 20 mg Ferrous Sulfate (Ferrous Sulfate) 325 mg PO 1200,1700 [facility] Last Admin: 08/27/18 12:11 Dose: 325 mg Hydralazine HCl (Apresoline) 25 mg PO TID [facility] Last Admin: 08/27/18 13:09 Dose: 25 mg Latanoprost (Xalatan Opthalmic) 1 drop EACH EYE DAILY [facility] Last Admin: 08/27/18 09:00 Dose: 1 drop Lisinopril (Zestril) 20 mg PO DAILY [facility] Last Admin: 08/27/18 09:00 Dose: 20 mg Magnesium Oxide (Mag-Ox 400) 400 mg PO TIDCM [facility] Stop: 08/29/18 09:01 Last Admin: 08/27/18 12:11 Dose: 400 mg Potassium Chloride (K-Dur) 40 meq PO TIDCM [facility] Last Admin: 08/27/18 12:11 Dose: 40 meq Senna/Docusate Sodium (Senokot-S, Danielle-Colace) 2 tablet PO BID PRN PRN PRN Reason: constipation Sodium Chloride () 5 - 15 ml IV UD PRN PRN Reason: SALINE FLUSH Last Admin: 08/25/18 18:06 Dose: 10 ml Code Visit Inpatient E&M: 53741 Subs Hosp L2
--- NOTE | 2018-08-27 13:56 | PN_ITS ---
Patient Problems: Active and Suspected Problems (Last Updated 08/16/18 @ 22:40 by Vanesa Tejada) Debility (Acute) Hypokalemia (Acute) Leukocytosis (Acute) Acute ischemic left posterior cerebral artery (PHYSICAL MEDICINE PHYSICIAN) stroke (Acute) Subjective: Patient had one being loose bowel movement on a stool softener. Stool softeners are being held. Hypokalemia and hypomagnesemia. Vitals/I&O's: Vital Signs Temp Pulse Resp BP Pulse Ox 99 F 78 20 H 143/60 H 95 08/27/18 08:04 08/27/18 13:09 08/27/18 08:04 08/27/18 13:09 08/27/18 08:04 Oxygen Delivery Method Room Air Weight: 119 lb 0.794 oz Body Mass Index (BMI) 22.6 Intake and Output for Last 24 Hours 08/25/18 08/26/18 08/27/18 23:59 23:59 23:59 Intake Total 840 / 840 300 / 300 Balance 840 / 840 300 / 300 General: Alert, Cooperative, Disoriented - 2 times HEENT: Atraumatic, PERRLA, EOMI, Normocephalic Oral: Dry Mucosa Neck: Supple, No JVD, Negative Carotid Bruits Lungs: Clear to auscultation, Normal air movement Cardiovascular: Regular rate, Regular Rhythm, Normal S1, Normal S2, No murmurs Abdomen: Bowel Sounds Present, Soft, Non Tender Extremities: No edema, Capillary Refill Less than 3 Seconds Skin: No rashes, No breakdown Musculoskeletal: No Tenderness to Palpation of Joints or Extremities Neurological: Cranial nerves II-XII grossly intact, - - Right upper extremity and lower extremity weakness have improved. Right upper extremity 4+/5. RLE 4/5. Dysphagia and dysarthria right-sided hemineglect. Right homonymous hemianopia Psych/Mental Status: Normal Affect, Appropriate Laboratory Results 08/27/18 05:22: Sodium 137, Potassium 2.4 L*, Chloride 103, Carbon Dioxide 29.0, Anion Gap 5, BUN 15, Creatinine 0.52 L, Estim Creat Clear Calc 34.90, Est GFR (MDRD) Af Amer 145, Est GFR (MDRD) Non-Af 120, BUN/Creatinine Ratio 28.8 H, Glucose 117 H, Calcium 7.5 L 08/27/18 05:22: Magnesium 1.4 L 08/27/18 12:00: Potassium 3.1 L 08/27/18 12:00: AST 35 08/27/18 12:00: PT 14.9, INR 1.2 Current Medications Acetaminophen (Tylenol) 650 mg PO Q6H PRN PRN PRN Reason: PAIN Last Admin: 08/23/18 12:50 Dose: 650 mg [facility] ([facility]) [facility] Last Admin: 08/27/18 09:00 Dose: 81 mg Atorvastatin Calcium (Lipitor) 40 mg PO QHS [facility] Last Admin: 08/26/18 22:07 Dose: 40 mg Bisacodyl (Dulcolax) 10 mg RECTAL .PRN X 1 PRN PRN Reason: Constipation Calamine/Phenol (Calmoseptine Ointment) 1 applic TOPICAL BID [facility]; Protocol Last Admin: 08/27/18 09:00 Dose: 1 applicatio Calcium/Vitamin D (Os-Chi 500mg + D) [facility] Last Admin: 08/27/18 09:00 Dose: 1 tablet Enoxaparin Sodium (Lovenox) 40 mg SC DAILY@0600 [facility] Last Admin: 08/27/18 06:21 Dose: 40 mg Famotidine (Pepcid) 20 mg PO BID [facility] Last Admin: 08/27/18 09:00 Dose: 20 mg Ferrous Sulfate (Ferrous Sulfate) 325 mg PO 1200,1700 [facility] Last Admin: 08/27/18 12:11 Dose: 325 mg Hydralazine HCl (Apresoline) 25 mg PO TID [facility] Last Admin: 08/27/18 13:09 Dose: 25 mg Latanoprost (Xalatan Opthalmic) 1 drop EACH EYE DAILY [facility] Last Admin: 08/27/18 09:00 Dose: 1 drop Lisinopril (Zestril) 20 mg PO DAILY [facility] Last Admin: 08/27/18 09:00 Dose: 20 mg Magnesium Oxide (Mag-Ox 400) 400 mg PO TIDCM [facility] Stop: 08/29/18 09:01 Last Admin: 08/27/18 12:11 Dose: 400 mg Potassium Chloride (K-Dur) 40 meq PO TIDCM [facility] Last Admin: 08/27/18 12:11 Dose: 40 meq Senna/Docusate Sodium (Senokot-S, Danielle-Colace) 2 tablet PO BID PRN PRN PRN Reason: constipation Sodium Chloride () 5 - 15 ml IV UD PRN PRN Reason: SALINE FLUSH Last Admin: 08/25/18 18:06 Dose: 10 ml Medical Necessity - Tobacco Use Smoking Status: Former smoker Tobacco Use: Cigarettes Assessment/Plan All Active Problems (Last Updated 08/16/18 @ 22:40 by Vanesa Tejada) Debility (Acute) Hypokalemia (Acute) Leukocytosis (Acute) Acute ischemic left posterior cerebral artery (PHYSICAL MEDICINE PHYSICIAN) stroke (Acute) Aortic aneurysm rupture (Resolved) The patient is a 82 year old F with multiple comorbidities including hypertension, dyslipidemia, TIA had recent abdominal aortic aneurysm rupture status post endovascular repair on 08/10/2018 at [place] complicated by acute left PHYSICAL MEDICINE PHYSICIAN stroke on 08/11/2018, being admitted to [facility] on 08/16/2018 with debility status post acute left PHYSICAL MEDICINE PHYSICIAN and small right superior cerebellar stroke. There patient was found to have right- sided weakness with neglect and left gaze deviation with NIH stroke scale 16. CT angiogram showed left proximal PHYSICAL MEDICINE PHYSICIAN occlusion and right PICC occlusion. Patient was not a candidate for TPA because of recent surgery and not endovascular candidate due to matched defect found after CT perfusion study. 1. Acute left PHYSICAL MEDICINE PHYSICIAN stroke and small right superior cerebellar stroke on 08/11/2018 with major debility: Patient is being admitted in acute rehab. PT OT and OT. Bladder and bowel protocol. On aspirin and atorvastatin. 2. Hypertension: On lisinopril and hydralazine 3. Dyslipidemia: On atorvastatin. LDL cholesterol was 50 on 08/11/2018 4. Leukocytosis: Resolved. WBC count 9.7 thousand 5. Chronic hypokalemia and hypomagnesemia: K2.4. Magnesium 1.4. Potassium and magnesium are being replaced. Last K3.1. If hypokalemia and hypomagnesemia does not get better even after improvement of diarrhea, consider nephrology consult. 6. Acute on chronic anemia, probably from surgical loss during surgery in the leg in the hospital. Patient H&H was 7.9/22.9 on 08/15/2018 and here 8.9/27. Will start on the ferrous sulfate. 7. Recent abdominal aortic aneurysm rupture status post endovascular repair complicated with stroke as mentioned above: Remove the dressing from right groin. With nursing staff DVT prophylaxis on Lovenox 40 mg subcu daily. Active Medications Acetaminophen (Tylenol) 650 mg PO Q6H PRN PRN PRN Reason: PAIN Last Admin: 08/23/18 12:50 Dose: 650 mg Aspirin (Ecotrin) [facility] Last Admin: 08/27/18 09:00 Dose: 81 mg Atorvastatin Calcium (Lipitor) 40 mg PO QHS [facility] Last Admin: 08/26/18 22:07 Dose: 40 mg Bisacodyl (Dulcolax) 10 mg RECTAL .PRN X 1 PRN PRN Reason: Constipation Calamine/Phenol (Calmoseptine Ointment) 1 applic TOPICAL BID [facility]; Protocol Last Admin: 08/27/18 09:00 Dose: 1 applicatio Calcium/Vitamin D (Os-Chi 500mg + D) [facility] Last Admin: 08/27/18 09:00 Dose: 1 tablet Enoxaparin Sodium (Lovenox) 40 mg SC DAILY@0600 [facility] Last Admin: 08/27/18 06:21 Dose: 40 mg Famotidine (Pepcid) 20 mg PO BID [facility] Last Admin: 08/27/18 09:00 Dose: 20 mg Ferrous Sulfate (Ferrous Sulfate) 325 mg PO 1200,1700 [facility] Last Admin: 08/27/18 12:11 Dose: 325 mg Hydralazine HCl (Apresoline) 25 mg PO TID [facility] Last Admin: 08/27/18 13:09 Dose: 25 mg Latanoprost (Xalatan Opthalmic) 1 drop EACH EYE DAILY [facility] Last Admin: 08/27/18 09:00 Dose: 1 drop Lisinopril (Zestril) 20 mg PO DAILY [facility] Last Admin: 08/27/18 09:00 Dose: 20 mg Magnesium Oxide (Mag-Ox 400) 400 mg PO TIDCM [facility] Stop: 08/29/18 09:01 Last Admin: 08/27/18 12:11 Dose: 400 mg Potassium Chloride (K-Dur) 40 meq PO TIDCM [facility] Last Admin: 08/27/18 12:11 Dose: 40 meq Senna/Docusate Sodium (Senokot-S, Danielle-Colace) 2 tablet PO BID PRN PRN PRN Reason: constipation Sodium Chloride () 5 - 15 ml IV UD PRN PRN Reason: SALINE FLUSH Last Admin: 08/25/18 18:06 Dose: 10 ml Code Visit Inpatient E&M: 23508 Subs Hosp L2
[2018-08-27] MEDS: Atorvastatin Calcium 40 MG Tablet PO (20:35)
[2018-08-28] VITALS (7 sets, daily range): BP systolic 137–163; BP diastolic 58–73; PULSE 75–95; RESP 17–19; TEMP 36.9–37.1; O2SAT 95; BMI 22.6
[2018-08-28] MEDS: Acetaminophen 325 MG Tablet 650 MG PO (04:44)
[2018-08-28] MEDS: Enoxaparin 40 MG/0.4 ML Syringe SC (04:45)
[2018-08-28] MEDS: hydrALAZINE 25 MG Tablet PO ×3 (04:46→20:27)
[2018-08-28 06:08] LABS: Anion Gap 5 (5-15); BUN 14 mg/dL (7-18); BUN/Creat Ratio 27.4 RATIO (10-20); Chloride 105 mmol/L (98-107); Creatinine, Serum 0.51 mg/dL (0.55-1.02); EST Glomerular Filtration Rate 123 mL/min (>60); Est Glom Filt Rate - Afr Amer 148 mL/min (>60); Glucose 114 mg/dL (74-106); Magnesium 1.7 mg/dL (1.6-2.6); Potassium 3.9 mmol/L (3.5-5.1); Sodium Level 139 mmol/L (136-145)
[2018-08-28] MEDS: Lisinopril 20 MG Tablet PO (08:43)
[2018-08-28] MEDS: Famotidine 20 MG Tablet PO ×2 (08:43→20:29)
[2018-08-28] MEDS: Aspirin E.C. 81 MG Tablet PO (08:43)
[2018-08-28] MEDS: Calcium Carb/Vitamin D 1 TABLET Tablet PO ×2 (08:43→17:43)
[2018-08-28] MEDS: Magnesium Oxide 400 MG Tablet PO ×2 (08:43→17:43)
--- NOTE | 2018-08-28 10:42 | PN.NEURO_ITS ---
Patient Problems: Active and Suspected Problems (Last Updated 08/16/18 @ 22:40 by Vanesa Tejada) Debility (Acute) Hypokalemia (Acute) Leukocytosis (Acute) Acute ischemic left posterior cerebral artery (PROJECT COORDINATOR RN) stroke (Acute) Subjective: No issues overnight. Care discussed with the nursing staff. - Physical Exam General: Alert HEENT: Normocephalic Neck: Supple Lungs: Clear to auscultation Cardiovascular: Normal S1, Normal S2 Abdomen: Bowel Sounds Present Extremities: No cyanosis Neurological: - - awake, alert, CN- pupils BERL, EOMI intact, right homonymous hemianopia, power 5/5 left UE, LE, Right UE -3/5 and +4/5 Right LE, right sensory loss, extinction present right side, cerebellar signs could not be assessed on the right, Reflexes + B/L B/S/T/K/A, gait deferred Psych/Mental Status: Normal Affect Vital Signs Temp Pulse Resp BP Pulse Ox 98.4 F 86 17 149/72 H 95 08/28/18 07:00 08/28/18 07:00 08/28/18 07:00 08/28/18 07:00 08/28/18 07:00 Oxygen Delivery Method Room Air Weight: 54 kg Body Mass Index (BMI) 22.6 Intake and Output for Last 24 Hours 08/26/18 08/27/18 08/28/18 23:59 23:59 23:59 Intake Total 300 / 300 200 / 200 240 / 240 Balance 300 / 300 200 / 200 240 / 240 Laboratory Tests Past 24 Hrs 08/27/18 08/27/18 08/27/18 12:00 12:00 12:00 PT 14.9 INR 1.2 Sodium Potassium 3.1 L Chloride Carbon Dioxide Anion Gap BUN Creatinine Estim Creat Clear Calc Est GFR (MDRD) Af Amer Est GFR (MDRD) Non-Af BUN/Creatinine Ratio Glucose Calcium Magnesium AST 35 08/28/18 05:15 PT INR Sodium 139 Potassium 3.9 Chloride 105 Carbon Dioxide 29.0 Anion Gap 5 BUN 14 Creatinine 0.51 L Estim Creat Clear Calc 34.90 Est GFR (MDRD) Af Amer 148 Est GFR (MDRD) Non-Af 123 BUN/Creatinine Ratio 27.4 H Glucose 114 H Calcium 8.0 L Magnesium 1.7 AST Medical Necessity - Tobacco Use Smoking Status: Former smoker Tobacco Use: Cigarettes Assessment/Plan All Active Problems (Last Updated 08/16/18 @ 22:40 by Vanesa Tejada) Debility (Acute) Hypokalemia (Acute) Leukocytosis (Acute) Acute ischemic left posterior cerebral artery (PROJECT COORDINATOR RN) stroke (Acute) Aortic aneurysm rupture (Resolved) The patient is a 82 year old F with PMH HTN, HLD, TIA, glaucoma, melanoma, recent abdominal aortic aneurysm rupture status post endovascular repair on 08/10/2018 at [place], [place] complicated by acute left PROJECT COORDINATOR RN stroke on 08/11/2018, now admitted to [facility] on 08/16/2018 with debility status post acute left PROJECT COORDINATOR RN stroke, for greater than 3 hours therapy daily with a goal of returning back to her home at or near her prior functional baseline. Patient was initially admitted to [facility] in [place] with abdominal pain was found ruptured abdominal aortic aneurysm was later transferred to [facility] in [place] where she underwent endovascular repair on 08/10/2018, then later on 08/11/2018 around 8 AM she was found to have left gaze deviation with right-sided weakness and neglect with NIHSS 16, CT head showed acute left PROJECT COORDINATOR RN stroke and small right superior cerebellar stroke, CT angiogram showed left proximal PROJECT COORDINATOR RN occlusion and right PICA occlusion, CT perfusion reported to show CBF volume 30 mL, perfusion volume 37 mL, mismatch volume 7 mL with mismatch ratio of 1.2, she was not a TPA candidate due to recent surgery and was not an endovascular candidate due to matched defect. At present patient continues to h ave severe focal neurological deficits in the form of right homonymous hemianopia with dysarthria extinction and right-sided weakness. Per documentation she lives in a private home with no steps. At present patient denies any headache dizziness, new onset focal motor weakness sensory loss or aphasia. Patient is a poor historian and history cannot be obtained from the patient, history is obtained from medical records and documentation Plan ?PT for gait stability ?OT for ADLs ?Bowel protocol ?Analgesics as needed ?Labs reviewed?WBC 12.3, INR 2, AST 44. Patient had a high INR as an inpatient at the outside hospital, reason not clear. Will defer further management per hospitalist recommendation. -Repeat Labs-08/28/2018-K+-3.9, Mg-1.7, INR-1.2 and AST-35 (N). K and Magnesium replacement per hospitalist. Monitor K and Mg, if hypokalemia/hypomagnesemia recurs may need nephrology consult. ?Left PROJECT COORDINATOR RN stroke, small right superior cerebellar stroke?on aspirin and Lipitor ?HTN?on lisinopril and hydralazine ?HLD- on atorvastatin ?GI/DVT prophylaxis-on famotidine/Lovenox, SCDs ?Fall precautions ?Hospitalist consult ?Further medical management per hospitalist recommendations ?Follow-up with PCP and neurology on discharge.
[2018-08-28] MEDS: Latanoprost 0.005% 1 Bottle 1 DRP EACH EYE (10:43)
[2018-08-28] MEDS: Menthol/Lanolin/Calamine/Znox 113 GM Tube 1 APPLIC TOPICAL ×2 (10:44→20:28)
[2018-08-28] MEDS: Ferrous Sulfate 325 MG Tablet PO ×2 (12:16→17:43)
[2018-08-28] MEDS: Atorvastatin Calcium 40 MG Tablet PO (20:27)
[2018-08-29 05:09] VITALS: PULSE 92
[2018-08-29] MEDS: hydrALAZINE 25 MG Tablet PO ×3 (05:09→22:04)
[2018-08-29] MEDS: Enoxaparin 40 MG/0.4 ML Syringe SC (05:09)
[2018-08-29] MEDS: Famotidine 20 MG Tablet PO ×2 (08:54→22:04)
[2018-08-29] MEDS: Aspirin E.C. 81 MG Tablet PO (08:54)
[2018-08-29] MEDS: Calcium Carb/Vitamin D 1 TABLET Tablet PO ×2 (08:55→16:03)
[2018-08-29] MEDS: Magnesium Oxide 400 MG Tablet PO (08:55)
[2018-08-29] MEDS: Latanoprost 0.005% 1 Bottle 1 DRP EACH EYE (08:56)
[2018-08-29] MEDS: Lisinopril 40 MG Tablet PO (08:56)
[2018-08-29] MEDS: Menthol/Lanolin/Calamine/Znox 113 GM Tube 1 APPLIC TOPICAL ×2 (08:57→22:04)
[2018-08-29 10:00] VITALS: BP 160/76; PULSE 92; RESP 16; TEMP 36.8; O2SAT 94
[2018-08-29] MEDS: Ferrous Sulfate 325 MG Tablet PO ×2 (11:30→16:03)
[2018-08-29 13:06] VITALS: BMI 22.6
[2018-08-29 13:55] VITALS: BP 148/73; PULSE 89
[2018-08-29 18:46] VITALS: BP 144/75; PULSE 98; RESP 16; TEMP 36.5; O2SAT 94
[2018-08-29 22:00] VITALS: BP 144/68; PULSE 97
[2018-08-29 22:04] VITALS: BP 144/68; PULSE 97
[2018-08-29] MEDS: Atorvastatin Calcium 40 MG Tablet PO (22:04)
[2018-08-30 06:29] LABS: Hematocrit 25.9 % (37-47); Hemoglobin 8.1 g/dl (12.0-15.0); Magnesium 1.8 mg/dL (1.6-2.6); Mean Corp Hgb Conc 31.3 g/gl (32-36); Mean Corpuscular Hgb 28.9 pg (27.0-32.0); Mean Corpuscular Volume 92.5 fL (81-99); Mean Platelet Vol. 9.4 fl (6.2-12.0); Platelet Count 246 K/mm3 (150-450); Potassium 3.8 mmol/L (3.5-5.1); RBC Distribution Width CV 13.3 % (11.6-14.6); RBC Distribution Width SD 43.2 fl (35.1-43.9); White Blood Count 7.4 K/mm3 (4.4-11.0)
[2018-08-30] MEDS: Enoxaparin 40 MG/0.4 ML Syringe SC (06:32)
[2018-08-30 06:42] LABS: Scan Indicated on CBC? Y/N NO
[2018-08-30 06:54] VITALS: BP 151/68; PULSE 90
[2018-08-30] MEDS: hydrALAZINE 25 MG Tablet PO ×3 (06:54→21:50)
[2018-08-30 10:00] VITALS: BP 151/68; PULSE 90; RESP 20; TEMP 37.2; O2SAT 93
[2018-08-30] MEDS: Aspirin E.C. 81 MG Tablet PO (10:27)
[2018-08-30] MEDS: Calcium Carb/Vitamin D 1 TABLET Tablet PO ×2 (10:27→16:54)
[2018-08-30] MEDS: Famotidine 20 MG Tablet PO ×2 (10:27→21:50)
[2018-08-30] MEDS: Lisinopril 40 MG Tablet PO (10:27)
[2018-08-30] MEDS: Menthol/Lanolin/Calamine/Znox 113 GM Tube 1 APPLIC TOPICAL ×2 (10:28→21:50)
[2018-08-30] MEDS: Latanoprost 0.005% 1 Bottle 1 DRP EACH EYE (10:28)
--- NOTE | 2018-08-30 11:41 | CASEMGMT ---
Team meeting held today with pt present. Pt is receiving PT/OT/ST and progressing with therapy. D/C date set for 09/08/18. Will continue with treatment plan at this time and reteam next week. With pt permission phone call placed to pt daughter Gris and update given on team meeting and pt progress on RU. Gris states they have made a decision and would like pt to transfer to the [facility] upon d/c from for continued skilled therapy. Phone call to Soledad at the [facility] and informed of pt d/c date and desire to come to [facility] at that time for continue Skilled therapy. Demographic sheet faxed and will fax referral information closer to d/c date. SW will continue to follow for support and d/c planning. DANIEL Pete
--- NOTE | 2018-08-30 11:42 | NURSING ---
Per. Dr. Pillai text Dr. Hollingsworth made him aware that pt is SOB with exertion.
[2018-08-30] MEDS: Ferrous Sulfate 325 MG Tablet PO ×2 (12:02→16:54)
[2018-08-30 14:09] VITALS: PULSE 88
[2018-08-30 15:05] VITALS: BMI 22.6
--- NOTE | 2018-08-30 15:46 | PCM.PN.NEU ---
Patient Problems: Active and Suspected Problems (Last Updated 08/16/18 @ 22:40 by Vaneas Tejada) Debility (Acute) Hypokalemia (Acute) Leukocytosis (Acute) Acute ischemic left posterior cerebral artery (SPECIAL EVENTS MANAGER) stroke (Acute) Subjective: No issues overnight. Care discussed with the nursing staff. Staffed in the team meeting today. All questions were answered. Further therapy details per PT/OT no documentation. - Physical Exam General: Alert HEENT: Normocephalic Neck: Supple Lungs: Normal air movement Cardiovascular: Normal S1, Normal S2 Abdomen: Bowel Sounds Present Extremities: No cyanosis Neurological: - - awake, alert, CN- pupils BERL, EOMI intact, right homonymous hemianopia, power 5/5 left UE, LE, Right UE -3/5 and +4/5 Right LE, right sensory loss, extinction present right side, cerebellar signs could not be assessed on the right, Reflexes + B/L B/S/T/K/A, gait deferred Psych/Mental Status: Normal Affect Vital Signs Temp Pulse Resp BP Pulse Ox 99.0 F 88 20 H 151/68 H 93 08/30/18 10:00 08/30/18 14:09 08/30/18 10:00 08/30/18 10:00 08/30/18 10:00 Oxygen Delivery Method Room Air Weight: 51.8 kg Body Mass Index (BMI) 22.6 Intake and Output for Last 24 Hours 08/28/18 08/29/18 08/30/18 23:59 23:59 23:59 Intake Total 540 / 540 600 / 600 Balance 540 / 540 600 / 600 Laboratory Tests Past 24 Hrs 08/30/18 08/30/18 05:42 05:42 WBC 7.4 RBC 2.80 L Hgb 8.1 L Hct 25.9 L MCV 92.5 MCH 28.9 MCHC 31.3 L RDW 13.3 RDW Differential 43.2 Plt Count 246 MPV 9.4 Potassium 3.8 Magnesium 1.8 Medical Necessity - Tobacco Use Smoking Status: Former smoker Tobacco Use: Cigarettes Assessment/Plan All Active Problems (Last Updated 08/16/18 @ 22:40 by Vanesa Tejada) Debility (Acute) Hypokalemia (Acute) Leukocytosis (Acute) Acute ischemic left posterior cerebral artery (SPECIAL EVENTS MANAGER) stroke (Acute) Aortic aneurysm rupture (Resolved) The patient is a 82 year old F with PMH HTN, HLD, TIA, glaucoma, melanoma, recent abdominal aortic aneurysm rupture status post endovascular repair on 08/10/2018 at [place], [place] complicated by acute left SPECIAL EVENTS MANAGER stroke on 08/11/2018, now admitted to [facility] on 08/16/2018 with debility status post acute left SPECIAL EVENTS MANAGER stroke, for greater than 3 hours therapy daily with a goal of returning back to her home at or near her prior functional baseline. Patient was initially admitted to in [place] with abdominal pain was found ruptured abdominal aortic aneurysm was later transferred to [facility] in [place] where she underwent endovascular repair on 08/10/2018, then later on 08/11/2018 around 8 AM she was found to have left gaze deviation with right-sided weakness and neglect with NIHSS 16, CT head showed acute left SPECIAL EVENTS MANAGER stroke and small right superior cerebellar stroke, CT angiogram showed left proximal SPECIAL EVENTS MANAGER occlusion and right PICA occlusion, CT perfusion reported to show CBF volume 30 mL, perfusion volume 37 mL, mismatch volume 7 mL with mismatch ratio of 1.2, she was not a TPA candidate due to recent surgery and was not an endovascular candidate due to matched defect. At present patient continues to have severe focal neurological deficits in the form of right homonymous hemianopia with dysarthria extinction and right-sided weakness. Per documentation she lives in a private home with no steps. At present patient denies any headache dizziness, new onset focal motor weakness sensory loss or aphasia. Patient is a poor historian and history cannot be obtained from the patient, history is obtained from medical records and documentation Plan ?PT for gait stability ?OT for ADLs ?Bowel protocol ?Analgesics as needed ?Labs reviewed?WBC 12.3, INR 2, AST 44. Patient had a high INR as an inpatient at the outside hospital, reason not clear. Will defer further management per hospitalist recommendation. -Repeat Labs-08/28/2018-K+-3.9, Mg-1.7, INR-1.2 and AST-35 (N). K and Magnesium replacement per hospitalist. Monitor K and Mg, if hypokalemia/hypomagnesemia recurs may need nephrology consult. Repeat hemoglobin 8.1 on 08/30/2018 ?Left SPECIAL EVENTS MANAGER stroke, small right superior cerebellar stroke?on aspirin and Lipitor ?HTN?on lisinopril and hydralazine ?HLD- on atorvastatin ?GI/DVT prophylaxis-on famotidine/Lovenox, SCDs ?Fall precautions ?Hospitalist consult ?Further medical management per hospitalist recommendations ?Follow-up with PCP, cardiothoracic/vascular surgery for aortic aneurysm and neurology on discharge.
--- NOTE | 2018-08-30 15:49 | PN.NEURO_ITS ---
Patient Problems: Active and Suspected Problems (Last Updated 08/16/18 @ 22:40 by Vanesa Tejada) Debility (Acute) Hypokalemia (Acute) Leukocytosis (Acute) Acute ischemic left posterior cerebral artery (WEB SEARCH EVALUATOR) stroke (Acute) Subjective: No issues overnight. Care discussed with the nursing staff. Staffed in the team meeting today. All questions were answered. Further therapy details per PT/OT no documentation. - Physical Exam General: Alert HEENT: Normocephalic Neck: Supple Lungs: Normal air movement Cardiovascular: Normal S1, Normal S2 Abdomen: Bowel Sounds Present Extremities: No cyanosis Neurological: - - awake, alert, CN- pupils BERL, EOMI intact, right homonymous hemianopia, power 5/5 left UE, LE, Right UE -3/5 and +4/5 Right LE, right sensory loss, extinction present right side, cerebellar signs could not be assessed on the right, Reflexes + B/L B/S/T/K/A, gait deferred Psych/Mental Status: Normal Affect Vital Signs Temp Pulse Resp BP Pulse Ox 99.0 F 88 20 H 151/68 H 93 08/30/18 10:00 08/30/18 14:09 08/30/18 10:00 08/30/18 10:00 08/30/18 10:00 Oxygen Delivery Method Room Air Weight: 51.8 kg Body Mass Index (BMI) 22.6 Intake and Output for Last 24 Hours 08/28/18 08/29/18 08/30/18 23:59 23:59 23:59 Intake Total 540 / 540 600 / 600 Balance 540 / 540 600 / 600 Laboratory Tests Past 24 Hrs 08/30/18 08/30/18 05:42 05:42 WBC 7.4 RBC 2.80 L Hgb 8.1 L Hct 25.9 L MCV 92.5 MCH 28.9 MCHC 31.3 L RDW 13.3 RDW Differential 43.2 Plt Count 246 MPV 9.4 Potassium 3.8 Magnesium 1.8 Medical Necessity - Tobacco Use Smoking Status: Former smoker Tobacco Use: Cigarettes Assessment/Plan All Active Problems (Last Updated 08/16/18 @ 22:40 by Vanesa Tejada) Debility (Acute) Hypokalemia (Acute) Leukocytosis (Acute) Acute ischemic left posterior cerebral artery (WEB SEARCH EVALUATOR) stroke (Acute) Aortic aneurysm rupture (Resolved) The patient is a 82 year old F with PMH HTN, HLD, TIA, glaucoma, melanoma, recent abdominal aortic aneurysm rupture status post endovascular repair on 08/10/2018 at [place] complicated by acute left WEB SEARCH EVALUATOR stroke on 08/11/2018, now admitted to [facility] on 08/16/2018 with debility status post acute left WEB SEARCH EVALUATOR stroke, for greater than 3 hours therapy daily with a goal of returning back to her home at or near her prior functional baseline. Patient was initially admitted to [facility] in [place] with abdominal pain was found ruptured abdominal aortic aneurysm was later transferred to [facility] in [place] where she underwent endovascular repair on 08/10/2018, then later on 08/11/2018 around 8 AM she was found to have left gaze deviation with right-sided weakness and neglect with NIHSS 16, CT head showed acute left WEB SEARCH EVALUATOR stroke and small right superior cerebellar stroke, CT angiogram showed left proximal WEB SEARCH EVALUATOR occlusion and right PICA occlusion, CT perfusion reported to show CBF volume 30 mL, perfusion volume 37 mL, mismatch volume 7 mL with mismatch ratio of 1.2, she was not a TPA candidate due to recent surgery and was not an endovascular candidate due to matched defect. At present patient continues to have severe focal neurological deficits in the form of right homonymous hemianopia with dysarthria extinction and right-sided weakness. Per documentation she lives in a private home with no steps. At present patient denies any headache dizziness, new onset focal motor weakness sensory loss or aphasia. Patient is a poor historian and history cannot be obtained from the patient, history is obtained from medical records and documentation Plan ?PT for gait stability ?OT for ADLs ?Bowel protocol ?Analgesics as needed ?Labs reviewed?WBC 12.3, INR 2, AST 44. Patient had a high INR as an inpatient at the outside hospital, reason not clear. Will defer further management per hospitalist recommendation. -Repeat Labs-08/28/2018-K+-3.9, Mg-1.7, INR-1.2 and AST-35 (N). K and Magnesium replacement per hospitalist. Monitor K and Mg, if hypokalemia/hypomagnesemia recurs may need nephrology consult. Repeat hemoglobin 8.1 on 08/30/2018 ?Left WEB SEARCH EVALUATOR stroke, small right superior cerebellar stroke?on aspirin and Lipitor ?HTN?on lisinopril and hydralazine ?HLD- on atorvastatin ?GI/DVT prophylaxis-on famotidine/Lovenox, SCDs ?Fall precautions ?Hospitalist consult ?Further medical management per hospitalist recommendations ?Follow-up with PCP, cardiothoracic/vascular surgery for aortic aneurysm and neurology on discharge.
--- NOTE | 2018-08-30 17:10 | PCM.PN.HOSP ---
Patient Problems: Active and Suspected Problems (Last Updated 08/16/18 @ 22:40 by Vanesa Tejada) Debility (Acute) Hypokalemia (Acute) Leukocytosis (Acute) Acute ischemic left posterior cerebral artery (BEHAVIORAL THERAPY COORDINATOR) stroke (Acute) Subjective: There is no any significant change. Patient was little short of breath in the morning. But that is usual during physical therapy. Hemoglobin is slowly drifting down from 8.9-8.1. Vitals/I&O's: Vital Signs Temp Pulse Resp BP Pulse Ox 99.0 F 88 20 H 151/68 H 93 08/30/18 10:00 08/30/18 14:09 08/30/18 10:00 08/30/18 10:00 08/30/18 10:00 Oxygen Delivery Method Room Air Weight: 114 lb 3.191 oz Body Mass Index (BMI) 22.6 Intake and Output for Last 24 Hours 08/28/18 08/29/18 08/30/18 23:59 23:59 23:59 Intake Total 540 / 540 600 / 600 Balance 540 / 540 600 / 600 General: Oriented x3, Cooperative, - - Awake HEENT: Atraumatic, PERRLA, EOMI, Normocephalic Neck: Supple, No JVD, Negative Carotid Bruits Lungs: Clear to auscultation, Normal air movement Cardiovascular: Regular rate, No murmurs Abdomen: Bowel Sounds Present, Soft, Non Tender Extremities: No edema, Capillary Refill Less than 3 Seconds Skin: No rashes, No breakdown Musculoskeletal: No Tenderness to Palpation of Joints or Extremities Neurological: Cranial nerves II-XII grossly intact, - - Right upper extremity and lower extremity weakness are improving. Right upper extremity 4+/5. RLE 4/5. Dysphagia and dysarthria right-sided hemineglect. Right homonymous hemianopia. Patient does not comprehend or follow commands probably from neglect Psych/Mental Status: Normal Affect, Appropriate, - Laboratory Results 08/30/18 05:42: Potassium 3.8, Magnesium 1.8 08/30/18 05:42: WBC 7.4, RBC 2.80 L, Hgb 8.1 L, Hct 25.9 L, MCV 92.5, MCH 28.9, MCHC 31.3 L, RDW 13.3, RDW Differential 43.2, Plt Count 246, MPV 9.4 Current Medications Acetaminophen (Tylenol) 650 mg PO Q6H PRN PRN PRN Reason: PAIN Last Admin: 08/28/18 04:44 Dose: 650 mg [facility]ir[facility] ([facility]) [facility] Last Admin: 08/30/18 10:27 Dose: 81 mg Atorvastatin Calcium (Lipitor) 40 mg PO QHS [facility] Last Admin: 08/29/18 22:04 Dose: 40 mg Bisacodyl (Dulcolax) 10 mg RECTAL .PRN X 1 PRN PRN Reason: Constipation Calamine/Phenol (Calmoseptine Ointment) 1 applic TOPICAL BID [facility]; Protocol Last Admin: 08/30/18 10:28 Dose: 1 applicatio Calcium/Vitamin D (Os-Chi 500mg + D) [facility] Last Admin: 08/30/18 16:54 Dose: 1 tablet Enoxaparin Sodium (Lovenox) 40 mg [place] DAILY@0600 [facility] Last Admin: 08/30/18 06:32 Dose: 40 mg Famotidine (Pepcid) 20 mg PO BID [facility] Last Admin: 08/30/18 10:27 Dose: 20 mg Ferrous Sulfate (Ferrous Sulfate) 325 mg PO 1200,1700 [facility] Last Admin: 08/30/18 16:54 Dose: 325 mg Hydralazine HCl (Apresoline) 25 mg PO TID [facility] Last Admin: 08/30/18 14:09 Dose: 25 mg Latanoprost (Xalatan Opthalmic) 1 drop EACH EYE DAILY [facility] Last Admin: 08/30/18 10:28 Dose: 1 drop Lisinopril (Zestril) 40 mg PO DAILY@0700 [facility] Potassium Chloride (K-Dur) 40 meq [facility] Last Admin: 08/30/18 10:27 Dose: 40 meq Senna/Docusate Sodium (Senokot-S, Danielle-Colace) 2 tablet PO BID PRN PRN PRN Reason: constipation Sodium Chloride () 5 - 15 ml IV UD PRN PRN Reason: SALINE FLUSH Last Admin: 08/25/18 18:06 Dose: 10 ml Medical Necessity - Tobacco Use Smoking Status: Former smoker Tobacco Use: Cigarettes Assessment/Plan All Active Problems (Last Updated 08/16/18 @ 22:40 by Vanesa Tejada) Debility (Acute) Hypokalemia (Acute) Leukocytosis (Acute) 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 There patient was found to have right-sided weakness with neglect and left gaze deviation with NIH stroke scale 16. CT angiogram showed left proximal BEHAVIORAL THERAPY COORDINATOR occlusion and right PICC occlusion. Patient was not a candidate for TPA because of recent surgery and not endovascular candidate due to matched defect found after CT perfusion study. 1. Acute left BEHAVIORAL THERAPY COORDINATOR stroke and small right superior cerebellar stroke on 08/11/2018 with major debility: Patient is being admitted in acute rehab. PT OT and OT. Bladder and bowel protocol. On aspirin and atorvastatin. 2. Hypertension: On lisinopril and hydralazine 3. Dyslipidemia: On atorvastatin. LDL cholesterol was 50 on 08/11/2018 4. Leukocytosis: Resolved. WBC count 9.7 thousand 5. Chronic hypokalemia and hypomagnesemia: K2.4. Magnesium 1.4. Potassium and magnesium are being replaced. Last K3.1. If hypokalemia and hypomagnesemia does not get better even after improvement of diarrhea, consider nephrology consult. 6. Acute on chronic anemia, probably from surgical loss during surgery in the leg in the hospital. Patient H&H was 7.9/22.9 on 08/15/2018 and here 8.9/27. H&H has slowly drifting down from 8.9/27-8.1/25.9. Discontinue Lovenox. on the ferrous sulfate. For now, continue baby aspirin if further drops have to discontinue aspirin too. Anemia workup ordered. 7. Recent abdominal aortic aneurysm rupture status post endovascular repair complicated with stroke as mentioned above: Remove the dressing from right groin. With nursing staff DVT prophylaxis. Discontinue Lovenox. Code Visit Inpatient E&M: 98009 Subs Hosp L2
[2018-08-30 21:48] VITALS: BP 136/66; PULSE 91; RESP 18; TEMP 37; O2SAT 95
[2018-08-30 21:50] VITALS: BP 136/66; PULSE 91
[2018-08-30] MEDS: Atorvastatin Calcium 40 MG Tablet PO (21:50)
[2018-08-30 22:39] VITALS: BMI 22.6
[2018-08-31 05:10] VITALS: BP 150/70; PULSE 95
[2018-08-31] MEDS: hydrALAZINE 25 MG Tablet PO ×3 (05:10→20:03)
[2018-08-31 05:42] LABS: Absolute Lymphocyte Count 1.09 X10^3/ul (0.83-4.51); Basophil# 0.03 X10^3/uL; Basophil% 0.4 % (0-1); Eosinophil# 0.14 X10^3/uL; Eosinophils% 1.9 % (0-5); Hematocrit 24.8 % (37-47); Immature Platelet Fraction 2.2 % (1.0-7.9); Lymphocyte # 1.09 X10^3/ul (4.0); Lymphocyte % 14.4 % (19-41); Mean Corp Hgb Conc 32.3 g/gl (32-36); Mean Corpuscular Hgb 28.7 pg (27.0-32.0); Mean Corpuscular Volume 88.9 fL (81-99); Mean Platelet Vol. 8.8 fl (6.2-12.0); Monocyte# 0.29 X10^3/uL; Monocyte% 3.8 % (0-10); Neutrophil # 5.99 X10^3/uL (2.7-7.7); Neutrophil % 79.2 % (47-70); POSITIVE COUNT NO; POSITIVE DIFFERENTIAL NO; POSITIVE MORPHOLOGY NO; Platelet Count 227 K/mm3 (150-450); RBC Distribution Width CV 13.7 % (11.6-14.6); RBC Distribution Width SD 44.5 fl (35.1-43.9); RET-HE 28.7 pg (30-35); Red Blood Count 2.79 M/mm3 (4.2-5.4); Reticulocyte Count 4.37 % (0.5-1.5); White Blood Count 7.6 K/mm3 (4.4-11.0)
[2018-08-31 06:19] LABS: Ferritin 264 ng/mL (8-252); Iron 20 ug/dL (50-170); Iron Binding Capacity,Total 159 ug/dL (250-450); PERCENT IRON SATURATION 12.6 % (15.0-55.0)
[2018-08-31] MEDS: Lisinopril 40 MG Tablet PO (06:42)
[2018-08-31 07:00] VITALS: BP 150/70; PULSE 95; RESP 18; TEMP 37.2; O2SAT 95
[2018-08-31] MEDS: Calcium Carb/Vitamin D 1 TABLET Tablet PO ×2 (07:53→17:05)
[2018-08-31] MEDS: Aspirin E.C. 81 MG Tablet PO (07:53)
[2018-08-31] MEDS: Famotidine 20 MG Tablet PO ×2 (07:53→20:03)
[2018-08-31] MEDS: Menthol/Lanolin/Calamine/Znox 113 GM Tube 1 APPLIC TOPICAL ×2 (07:54→20:06)
[2018-08-31 08:07] LABS: Vitamin B12 456 pg/mL (211-911)
[2018-08-31] MEDS: Acetaminophen 325 MG Tablet 650 MG PO (09:54)
[2018-08-31] MEDS: Latanoprost 0.005% 1 Bottle 1 DRP EACH EYE (09:54)
[2018-08-31] MEDS: Ferrous Sulfate 325 MG Tablet PO ×2 (11:52→17:05)
--- NOTE | 2018-08-31 13:21 | PCM.PN.NEU ---
Patient Problems: Active and Suspected Problems (Last Updated 08/16/18 @ 22:40 by Vanesa Tejada) Debility (Acute) Hypokalemia (Acute) Leukocytosis (Acute) Acute ischemic left posterior cerebral artery (CLINICAL OFFICE TECHNICIAN) stroke (Acute) Subjective: No issues overnight. Care discussed with the nursing staff. Hemoglobin 8 on 08/31/2018. She denies any abdominal pain. - Physical Exam General: Alert HEENT: Normocephalic Neck: Supple Lungs: Normal air movement Cardiovascular: Normal S1, Normal S2 Abdomen: Bowel Sounds Present Extremities: No cyanosis Neurological: - - awake, alert, CN- pupils BERL, EOMI intact, right homonymous hemianopia, power 5/5 left UE, LE, Right UE -3/5 and +4/5 Right LE, right sensory loss, extinction present right side, cerebellar signs could not be assessed on the right, Reflexes + B/L B/S/T/K/A, gait deferred Psych/Mental Status: Normal Affect Vital Signs Temp Pulse Resp BP Pulse Ox 98.9 F 95 18 150/70 H 95 08/31/18 07:00 08/31/18 07:00 08/31/18 07:00 08/31/18 07:00 08/31/18 07:00 Oxygen Delivery Method Room Air Weight: 51.8 kg Body Mass Index (BMI) 22.6 Intake and Output for Last 24 Hours 08/29/18 08/30/18 08/31/18 23:59 23:59 23:59 Intake Total 600 / 600 360 / 360 Balance 600 / 600 360 / 360 Laboratory Tests Past 24 Hrs 08/31/18 08/31/18 08/31/18 05:20 05:20 05:20 WBC 7.6 RBC 2.79 L Hgb 8.0 L Hct 24.8 L MCV 88.9 MCH 28.7 MCHC 32.3 RDW 13.7 RDW Differential 44.5 H Plt Count 227 MPV 8.8 Immature Gran % (Auto) 0.300 Neut % (Auto) 79.2 H Lymph % (Auto) 14.4 L Wetzel % (Auto) 3.8 Eos % (Auto) 1.9 Baso % (Auto) 0.4 Absolute Neuts (auto) 6.0 Absolute Lymphs (auto) 1.09 Total Counted Not Reportable Immature Plt Fraction 2.2 Retic Count 4.37 H Immature Retic Fraction 15.00 Retic Hgb Equivalent 28.7 L Iron 20 L TIBC 159 L Iron Saturation 12.6 L Ferritin 264 H Vitamin B12 456 Folate 13.00 Medical Necessity - Tobacco Use Smoking Status: Former smoker Tobacco Use: Cigarettes Assessment/Plan All Active Problems (Last Updated 08/16/18 @ 22:40 by Vanesa Tejada) Debility (Acute) Hypokalemia (Acute) Leukocytosis (Acute) Acute ischemic left posterior cerebral artery (CLINICAL OFFICE TECHNICIAN) stroke (Acute) Aortic aneurysm rupture (Resolved) The patient is a 82 year old F with PMH HTN, HLD, TIA, glaucoma, melanoma, recent abdominal aortic aneurysm rupture status post endovascular repair on 08/10/2018 at [place], [place] complicated by acute left CLINICAL OFFICE TECHNICIAN stroke on 08/11/2018, now admitted to [facility] on 08/16/2018 with debility status post acute left CLINICAL OFFICE TECHNICIAN stroke, for greater than 3 hours therapy daily with a goal of returning back to her home at or near her prior functional baseline. Patient was initially admitted to [facility] in [place] with abdominal pain was found ruptured abdominal aortic aneurysm was later transferred to [facility] in [place] where she underwent endovascular repair on 08/10/2018, then later on 08/11/2018 around 8 AM she was found to have left gaze deviation with right-sided weakness and neglect with NIHSS 16, CT head showed acute left CLINICAL OFFICE TECHNICIAN stroke and small right superior cerebellar stroke, CT angiogram showed left proximal CLINICAL OFFICE TECHNICIAN occlusion and right PICA occlusion, CT perfusion reported to show CBF volume 30 mL, perfusion volume 37 mL, mismatch volume 7 mL with mismatch ratio of 1.2, she was not a TPA candidate due to recent surgery and was not an endovascular candidate due to matched defect. At present patient continues to have severe focal neurological deficits in the form of right homonymous hemianopia with dysarthria extinction and right-sided weakness. Per documentation she lives in a private home with no steps. At present patient denies any headache dizziness, new onset focal motor weakness sensory loss or aphasia. Patient is a poor historian and history cannot be obtained from the patient, history is obtained from medical records and documentation Plan ?PT for gait stability ?OT for ADLs ?Bowel protocol ?Analgesics as needed ?Labs reviewed?WBC 12.3, INR 2, AST 44. Patient had a high INR as an inpatient at the outside hospital, reason not clear. Will defer further management per hospitalist recommendation. -Repeat Labs-08/28/2018-K+-3.9, Mg-1.7, INR-1.2 and AST-35 (N). K and Magnesium replacement per hospitalist. Monitor K and Mg, if hypokalemia/hypomagnesemia recurs may need nephrology consult. Repeat hemoglobin 8.0 on 08/31/2018 ?Left CLINICAL OFFICE TECHNICIAN stroke, small right superior cerebellar stroke?on aspirin and Lipitor ?HTN?on lisinopril and hydralazine ?HLD- on atorvastatin ?GI/DVT prophylaxis-on famotidine/Lovenox, SCDs ?Fall precautions ?Hospitalist consult ?Further medical management per hospitalist recommendations ?Follow-up with PCP, cardiothoracic/vascular surgery for aortic aneurysm and neurology on discharge.
[2018-08-31 14:19] VITALS: PULSE 68
[2018-08-31 15:38] VITALS: BMI 22.6
[2018-08-31 20:03] VITALS: BP 135/69; PULSE 98
[2018-08-31] MEDS: Atorvastatin Calcium 40 MG Tablet PO (20:03)
[2018-08-31 20:07] VITALS: BP 135/69; PULSE 98; RESP 18; TEMP 37.2; O2SAT 96
[2018-08-31 22:29] VITALS: BMI 22.6
[2018-09-01 05:43] VITALS: BP 140/65; PULSE 91
[2018-09-01] MEDS: hydrALAZINE 25 MG Tablet PO ×3 (05:43→20:02)
[2018-09-01] MEDS: Aspirin E.C. 81 MG Tablet PO (08:50)
[2018-09-01] MEDS: Calcium Carb/Vitamin D 1 TABLET Tablet PO ×2 (08:50→17:03)
[2018-09-01] MEDS: Lisinopril 40 MG Tablet PO (08:50)
[2018-09-01] MEDS: Famotidine 20 MG Tablet PO ×2 (08:50→20:03)
[2018-09-01] MEDS: Latanoprost 0.005% 1 Bottle 1 DRP EACH EYE (08:51)
[2018-09-01] MEDS: Menthol/Lanolin/Calamine/Znox 113 GM Tube 1 APPLIC TOPICAL ×2 (08:51→20:03)
[2018-09-01 09:19] VITALS: BP 140/65; PULSE 83; RESP 18; TEMP 37; O2SAT 94
[2018-09-01] MEDS: Ferrous Sulfate 325 MG Tablet PO ×2 (13:01→17:03)
[2018-09-01 13:04] VITALS: BP 137/54; PULSE 99
[2018-09-01 13:45] VITALS: BMI 22.6
--- NOTE | 2018-09-01 17:26 | PCM.PN.HOSP ---
Patient Problems: Active and Suspected Problems (Last Updated 08/16/18 @ 22:40 by Vanesa Tejada) Debility (Acute) Hypokalemia (Acute) Leukocytosis (Acute) Acute ischemic left posterior cerebral artery (TIP CEMENTER) stroke (Acute) Subjective: Patient hemoglobin is stable around 8 since 08/17. Although gradually has decreased from 8.9-8.0. Stool for occult blood positive. Lovenox, DVT prophylactic dose has been discontinued. Objective: General: Oriented x3, Cooperative, Awake. Patient sometimes does not recognize HEENT: Atraumatic, PERRLA, EOMI, Normocephalic Neck: Supple, No JVD, Negative Carotid Bruits Lungs: Clear to auscultation, Normal air movement Cardiovascular: Regular rate, No murmurs Abdomen: Bowel Sounds Present, Soft, Non Tender Extremities: No edema, Capillary Refill Less than 3 Seconds Skin: No rashes, No breakdown Musculoskeletal: No Tenderness to Palpation of Joints or Extremities Neurological: Cranial nerves II-XII grossly intact, - - Right upper extremity and lower extremity weakness are improving. Dysphagia and dysarthria right-sided hemineglect. Right homonymous hemianopia. Psych/Mental Status: Normal Affect, Appropriate Vitals/I&O's: Vital Signs Temp Pulse Resp BP Pulse Ox 98.6 F 99 18 137/54 H 94 09/01/18 09:19 09/01/18 13:04 09/01/18 09:19 09/01/18 13:04 09/01/18 09:19 Oxygen Delivery Method Room Air Weight: 112 lb Body Mass Index (BMI) 22.6 Intake and Output for Last 24 Hours 08/30/18 08/31/18 09/01/18 23:59 23:59 23:59 Intake Total 600 / 600 Balance 600 / 600 Microbiology Past 72 Hours 08/31/18 17:00 Stool Stool Occult Blood (DEION) - Final Occult Blood Positive Current Medications Acetaminophen (Tylenol) 650 mg PO Q6H PRN PRN PRN Reason: PAIN Last Admin: 08/31/18 09:54 Dose: 650 mg Aspirin (Ecotrin) 81 mg PO DAILYCM LISANDRO Last Admin: 09/01/18 08:50 Dose: 81 mg Atorvastatin Calcium (Lipitor) 40 mg PO QHS [facility] Last Admin: 08/31/18 20:03 Dose: 40 mg Bisacodyl (Dulcolax) 10 mg RECTAL .PRN X 1 PRN PRN Reason: Constipation Calamine/Phenol (Calmoseptine Ointment) 1 applic TOPICAL BID [facility]; Protocol Last Admin: 09/01/18 08:51 Dose: 1 applicatio Calcium/Vitamin D (Os-Chi 500mg + D) [facility] Last Admin: 09/01/18 17:03 Dose: 1 tablet Famotidine (Pepcid) 20 mg PO BID [facility] Last Admin: 09/01/18 08:50 Dose: 20 mg Ferrous Sulfate (Ferrous Sulfate) 325 mg PO 1200,1700 [facility] Last Admin: 09/01/18 17:03 Dose: 325 mg Hydralazine HCl (Apresoline) 25 mg PO TID [facility] Last Admin: 09/01/18 13:04 Dose: 25 mg Latanoprost (Xalatan Opthalmic) 1 drop EACH EYE DAILY [facility] Last Admin: 09/01/18 08:51 Dose: 1 drop Lisinopril (Zestril) 40 mg PO DAILY@0700 [facility] Last Admin: 09/01/18 08:50 Dose: 40 mg Potassium Chloride (K-Dur) [facility] Last Admin: 09/01/18 08:50 Dose: 40 meq Senna/Docusate Sodium (Senokot-S, Danielle-Colace) 2 tablet PO BID PRN PRN PRN Reason: constipation Sodium Chloride () 5 - 15 ml IV UD PRN PRN Reason: SALINE FLUSH Last Admin: 08/25/18 18:06 Dose: 10 ml Medical Necessity - Tobacco Use Smoking Status: Former smoker Tobacco Use: Cigarettes Assessment/Plan All Active Problems (Last Updated 08/16/18 @ 22:40 by Vanesa Tejada) Debility (Acute) Hypokalemia (Acute) Leukocytosis (Acute) Acute ischemic left posterior cerebral artery (TIP CEMENTER) stroke (Acute) Aortic aneurysm rupture (Resolved) The patient is a 82 year old F with multiple comorbidities including hypertension, dyslipidemia, TIA had recent abdominal aortic aneurysm rupture status post endovascular repair on 08/10/2018 at [facility], [place] complicated by acute left TIP CEMENTER stroke on 08/11/2018, being admitted to [facility] on 08/16/2018 with debility status post acute left TIP CEMENTER and small right superior cerebellar stroke. There patient was found to have right-sided weakness with neglect and left gaze deviation with NIH stroke scale 16. CT angiogram showed left proximal TIP CEMENTER occlusion and right PICC occlusion. Patient was not a candidate for TPA because of recent surgery and not endovascular candidate due to matched defect found after CT perfusion study. 1. Acute left TIP CEMENTER stroke and small right superior cerebellar stroke on 08/11/2018 with major debility: Patient is being admitted in acute rehab. PT OT and OT. Bladder and bowel protocol. On aspirin and atorvastatin. 2. Hypertension: On lisinopril and hydralazine 3. Dyslipidemia: On atorvastatin. LDL cholesterol was 50 on 08/11/2018 4. Leukocytosis: Resolved. WBC count 9.7 thousand 5. Chronic hypokalemia and hypomagnesemia: K2.4. Magnesium 1.4. Potassium and magnesium are being replaced. Last K3.1. If hypokalemia and hypomagnesemia does not get better even after improvement of diarrhea, consider nephrology consult. 6. Acute on chronic anemia, probably from surgical loss during surgery in the leg in the hospital. Patient H&H was 7.9/22.9 on 08/15/2018 and here 8.9/27. H&H has slowly drifting down from 8.9/27-8.0/24.8. Platelet count is maintained discontinue Lovenox. Iron workup shows iron 20, TIBC low, ferritin 264 high and iron saturation 12.6%. Overall, consistent with anemia of chronic disease with iron deficit anemia. On the ferrous sulfate. For now, continue baby aspirin if further drops have to discontinue aspirin too. Repeat CBC on 09/03/2018. 7. Recent abdominal aortic aneurysm rupture status post endovascular repair complicated with stroke as mentioned above: Patient is DNR CC. In view of positive occult blood on a stool there is concern for endovascular graft leakage. Patient needs further conversation with family with attending as she is not good operative candidate for a repeat surgery or need to talk with operative surgeon. DVT prophylaxis. Lovenox has been discontinued. Bilateral SCDs Code Visit Inpatient E&M: 09906 Subs Hosp L2
--- NOTE | 2018-09-01 17:33 | PN_ITS ---
Patient Problems: Active and Suspected Problems (Last Updated 08/16/18 @ 22:40 by Vanesa Tejada) Debility (Acute) Hypokalemia (Acute) Leukocytosis (Acute) Acute ischemic left posterior cerebral artery (FILAMENT WELDER) stroke (Acute) Subjective: Patient hemoglobin is stable around 8 since 08/17. Although gradually has decreased from 8.9-8.0. Stool for occult blood positive. Lovenox, DVT prophylactic dose has been discontinued. Objective: General: Oriented x3, Cooperative, Awake. Patient sometimes does not recognize HEENT: Atraumatic, PERRLA, EOMI, Normocephalic Neck: Supple, No JVD, Negative Carotid Bruits Lungs: Clear to auscultation, Normal air movement Cardiovascular: Regular rate, No murmurs Abdomen: Bowel Sounds Present, Soft, Non Tender Extremities: No edema, Capillary Refill Less than 3 Seconds Skin: No rashes, No breakdown Musculoskeletal: No Tenderness to Palpation of Joints or Extremities Neurological: Cranial nerves II-XII grossly intact, - - Right upper extremity and lower extremity weakness are improving. Dysphagia and dysarthria right- sided hemineglect. Right homonymous hemianopia. Psych/Mental Status: Normal Affect, Appropriate Vitals/I&O's: Vital Signs Temp Pulse Resp BP Pulse Ox 98.6 F 99 18 137/54 H 94 09/01/18 09:19 09/01/18 13:04 09/01/18 09:19 09/01/18 13:04 09/01/18 09:19 Oxygen Delivery Method Room Air Weight: 112 lb Body Mass Index (BMI) 22.6 Intake and Output for Last 24 Hours 08/30/18 08/31/18 09/01/18 23:59 23:59 23:59 Intake Total 600 / 600 Balance 600 / 600 Microbiology Past 72 Hours 08/31/18 17:00 Stool Stool Occult Blood (DEION) - Final Occult Blood Positive Current Medications Acetaminophen (Tylenol) 650 mg PO Q6H PRN PRN PRN Reason: PAIN Last Admin: 08/31/18 09:54 Dose: 650 mg Aspirin (Ecotrin) 81 mg PO DAILYCM LISANDRO Last Admin: 09/01/18 08:50 Dose: 81 mg Atorvastatin Calcium (Lipitor) 40 mg PO QHS [facility] Last Admin: 08/31/18 20:03 Dose: 40 mg Bisacodyl (Dulcolax) 10 mg RECTAL .PRN X 1 PRN PRN Reason: Constipation Calamine/Phenol (Calmoseptine Ointment) 1 applic TOPICAL BID [facility]; Protocol Last Admin: 09/01/18 08:51 Dose: 1 applicatio Calcium/Vitamin D (Os-Chi 500mg + D) [facility] Last Admin: 09/01/18 17:03 Dose: 1 tablet Famotidine (Pepcid) 20 mg PO BID [facility] Last Admin: 09/01/18 08:50 Dose: 20 mg Ferrous Sulfate (Ferrous Sulfate) 325 mg PO 1200,1700 [facility] Last Admin: 09/01/18 17:03 Dose: 325 mg Hydralazine HCl (Apresoline) 25 mg PO TID [facility] Last Admin: 09/01/18 13:04 Dose: 25 mg Latanoprost (Xalatan Opthalmic) 1 drop EACH EYE DAILY [facility] Last Admin: 09/01/18 08:51 Dose: 1 drop Lisinopril (Zestril) 40 mg PO DAILY@0700 [facility] Last Admin: 09/01/18 08:50 Dose: 40 mg Potassium Chloride (K-Dur) [facility]q [facility] Last Admin: 09/01/18 08:50 Dose: 40 meq Senna/Docusate Sodium (Senokot-S, Danielle-Colace) 2 tablet PO BID PRN PRN PRN Reason: constipation Sodium Chloride () 5 - 15 ml IV UD PRN PRN Reason: SALINE FLUSH Last Admin: 08/25/18 18:06 Dose: 10 ml Medical Necessity - Tobacco Use Smoking Status: Former smoker Tobacco Use: Cigarettes Assessment/Plan All Active Problems (Last Updated 08/16/18 @ 22:40 by Vanesa Tejada) Debility (Acute) Hypokalemia (Acute) Leukocytosis (Acute) Acute ischemic left posterior cerebral artery (FILAMENT WELDER) stroke (Acute) Aortic aneurysm rupture (Resolved) The patient is a 82 year old F with multiple comorbidities including hypertension, dyslipidemia, TIA had recent abdominal aortic aneurysm rupture status post endovascular repair on 08/10/2018 at [facility], [place] complicated by acute left FILAMENT WELDER stroke on 08/11/2018, being admitted to [facility] on 08/16/2018 with debility status post acute left FILAMENT WELDER and small right superior cerebellar stroke. There patient was found to have right- sided weakness with neglect and left gaze deviation with NIH stroke scale 16. CT angiogram showed left proximal FILAMENT WELDER occlusion and right PICC occlusion. Patient was not a candidate for TPA because of recent surgery and not endovascular candidate due to matched defect found after CT perfusion study. 1. Acute left FILAMENT WELDER stroke and small right superior cerebellar stroke on 08/11/2018 with major debility: Patient is being admitted in acute rehab. PT OT and OT. Bladder and bowel protocol. On aspirin and atorvastatin. 2. Hypertension: On lisinopril and hydralazine 3. Dyslipidemia: On atorvastatin. LDL cholesterol was 50 on 08/11/2018 4. Leukocytosis: Resolved. WBC count 9.7 thousand 5. Chronic hypokalemia and hypomagnesemia: K2.4. Magnesium 1.4. Potassium and magnesium are being replaced. Last K3.1. If hypokalemia and hypomagnesemia does not get better even after improvement of diarrhea, consider nephrology consult. 6. Acute on chronic anemia, probably from surgical loss during surgery in the leg in the hospital. Patient H&H was 7.9/22.9 on 08/15/2018 and here 8.9/27. H&H has slowly drifting down from 8.9/27-8.0/24.8. Platelet count is maintained discontinue Lovenox. Iron workup shows iron 20, TIBC low, ferritin 264 high and iron saturation 12.6%. Overall, consistent with anemia of chronic disease with iron deficit anemia. On the ferrous sulfate. For now, continue baby aspirin if further drops have to discontinue aspirin too. Repeat CBC on 09/03/2018. 7. Recent abdominal aortic aneurysm rupture status post endovascular repair complicated with stroke as mentioned above: Patient is DNR CC. In view of positive occult blood on a stool there is concern for endovascular graft leakage. Patient needs further conversation with family with attending as she is not good operative candidate for a repeat surgery or need to talk with operative surgeon. DVT prophylaxis. Lovenox has been discontinued. Bilateral SCDs Code Visit Inpatient E&M: 07388 Subs Hosp L2
[2018-09-01 19:43] VITALS: BP 127/56; PULSE 87; RESP 16; TEMP 36.8; O2SAT 95
[2018-09-01 19:57] VITALS: BMI 22.6
[2018-09-01 20:02] VITALS: BP 128/56; PULSE 85
[2018-09-01] MEDS: Atorvastatin Calcium 40 MG Tablet PO (20:03)
[2018-09-01 22:00] VITALS: PULSE 87; RESP 17
[2018-09-02 05:22] VITALS: BP 149/62; PULSE 94
[2018-09-02] MEDS: hydrALAZINE 25 MG Tablet PO ×3 (05:22→20:52)
[2018-09-02] MEDS: Lisinopril 40 MG Tablet PO (05:22)
[2018-09-02 07:26] VITALS: BP 147/69; PULSE 94; RESP 17; TEMP 36.8; O2SAT 94
[2018-09-02] MEDS: Aspirin E.C. 81 MG Tablet PO (08:32)
[2018-09-02] MEDS: Latanoprost 0.005% 1 Bottle 1 DRP EACH EYE (08:32)
[2018-09-02] MEDS: Famotidine 20 MG Tablet PO ×2 (08:32→20:53)
[2018-09-02] MEDS: Calcium Carb/Vitamin D 1 TABLET Tablet PO ×2 (08:32→17:35)
[2018-09-02] MEDS: Menthol/Lanolin/Calamine/Znox 113 GM Tube 1 APPLIC TOPICAL ×2 (08:34→20:52)
[2018-09-02 11:24] VITALS: BMI 22.6
[2018-09-02] MEDS: Ferrous Sulfate 325 MG Tablet PO ×2 (12:17→17:35)
[2018-09-02 13:45] VITALS: PULSE 78
[2018-09-02 19:22] VITALS: BP 140/66; PULSE 95; RESP 16; TEMP 36.9; O2SAT 96
[2018-09-02 20:52] VITALS: BP 120/58; PULSE 91; BMI 22.6
[2018-09-02] MEDS: Atorvastatin Calcium 40 MG Tablet PO (20:53)
[2018-09-02 22:00] VITALS: PULSE 91; RESP 16
[2018-09-03 05:57] LABS: Hematocrit 25.1 % (37-47); Hemoglobin 8.3 g/dl (12.0-15.0); Mean Corp Hgb Conc 33.1 g/gl (32-36); Mean Corpuscular Hgb 29.1 pg (27.0-32.0); Mean Corpuscular Volume 88.1 fL (81-99); Mean Platelet Vol. 8.9 fl (6.2-12.0); Platelet Count 212 K/mm3 (150-450); RBC Distribution Width CV 13.9 % (11.6-14.6); RBC Distribution Width SD 44.5 fl (35.1-43.9); Red Blood Count 2.85 M/mm3 (4.2-5.4); White Blood Count 8.6 K/mm3 (4.4-11.0)
[2018-09-03 06:14] LABS: Scan Indicated on CBC? Y/N NO
[2018-09-03 06:28] VITALS: BP 142/68; PULSE 85
[2018-09-03] MEDS: hydrALAZINE 25 MG Tablet PO ×3 (06:28→20:39)
[2018-09-03] MEDS: Acetaminophen 325 MG Tablet 650 MG PO (06:33)
[2018-09-03 07:55] VITALS: BP 146/65; PULSE 89; RESP 16; TEMP 37.1; O2SAT 94
[2018-09-03] MEDS: Lisinopril 40 MG Tablet PO (07:58)
[2018-09-03] MEDS: Calcium Carb/Vitamin D 1 TABLET Tablet PO ×2 (07:58→17:17)
[2018-09-03] MEDS: Aspirin E.C. 81 MG Tablet PO (07:58)
[2018-09-03] MEDS: Famotidine 20 MG Tablet PO ×2 (07:58→20:38)
[2018-09-03] MEDS: Latanoprost 0.005% 1 Bottle 1 DRP EACH EYE (07:59)
[2018-09-03] MEDS: Menthol/Lanolin/Calamine/Znox 113 GM Tube 1 APPLIC TOPICAL ×2 (08:04→20:40)
[2018-09-03 09:45] VITALS: BMI 22.6
[2018-09-03] MEDS: Ferrous Sulfate 325 MG Tablet PO ×2 (12:06→17:17)
[2018-09-03 13:07] VITALS: PULSE 80
--- NOTE | 2018-09-03 15:14 | NURSING ---
Dr. Flores aware of occult stool positive and labs (Hgb increased). Daughter given update today that Hgb has increased. Dr. Flores ordered Remeron as appetite stimulant due to poor appetite and weight loss and daughter aware.
[2018-09-03 20:27] VITALS: BP 127/60; PULSE 95; RESP 17; TEMP 36.4; O2SAT 97
[2018-09-03 20:33] VITALS: BMI 22.6
[2018-09-03 20:39] VITALS: BP 123/59; PULSE 98
[2018-09-03] MEDS: Atorvastatin Calcium 40 MG Tablet PO (20:39)
[2018-09-03] MEDS: Mirtazapine 15 MG Tablet 7.5 MG PO (20:39)
[2018-09-03 22:00] VITALS: PULSE 95; RESP 16
[2018-09-04] MEDS: Acetaminophen 325 MG Tablet 650 MG PO (05:00)
[2018-09-04 05:01] VITALS: BP 132/66; PULSE 98
[2018-09-04] MEDS: hydrALAZINE 25 MG Tablet PO ×3 (05:01→20:20)
[2018-09-04] MEDS: Lisinopril 40 MG Tablet PO (05:01)
[2018-09-04] MEDS: Aspirin E.C. 81 MG Tablet PO (07:49)
[2018-09-04] MEDS: Calcium Carb/Vitamin D 1 TABLET Tablet PO ×2 (07:49→17:18)
[2018-09-04] MEDS: Famotidine 20 MG Tablet PO ×2 (07:49→20:19)
[2018-09-04] MEDS: Latanoprost 0.005% 1 Bottle 1 DRP EACH EYE (07:50)
[2018-09-04] MEDS: Menthol/Lanolin/Calamine/Znox 113 GM Tube 1 APPLIC TOPICAL ×2 (07:56→20:20)
[2018-09-04 08:50] VITALS: BP 130/69; PULSE 95; RESP 16; TEMP 37.2; O2SAT 95
--- NOTE | 2018-09-04 11:00 | NURSING ---
Daughter Gris given update. Gris also aware of her sister Juliet calling and trying to receive information and aware that she is not listed to receive information in the chart and that she became tearful.
[2018-09-04] MEDS: Ferrous Sulfate 325 MG Tablet PO ×2 (11:24→17:18)
[2018-09-04 12:58] VITALS: PULSE 79
[2018-09-04 13:36] VITALS: BMI 22.6
--- NOTE | 2018-09-04 13:36 | PCM.PN.NEU ---
Patient Problems: Active and Suspected Problems (Last Updated 08/16/18 @ 22:40 by Vanesa Tejada) Debility (Acute) Hypokalemia (Acute) Leukocytosis (Acute) Acute ischemic left posterior cerebral artery ([employer]NAGEMENT) stroke (Acute) Subjective: No complaints. Denies pain. Tolerating therapies. - Physical Exam General: Alert, Oriented x3 Neurological: - - No evidence of hypersomnia at this point. Still has some right-sided neglect and weakness although this is significantly improved Vital Signs Temp Pulse Resp BP Pulse Ox 37.2 C 79 16 130/69 H 95 09/04/18 08:50 09/04/18 12:58 09/04/18 08:50 09/04/18 08:50 09/04/18 08:50 Oxygen Delivery Method Room Air Weight: 49.895 kg Body Mass Index (BMI) 22.6 Intake and Output for Last 24 Hours 09/02/18 09/03/18 09/04/18 23:59 23:59 23:59 Intake Total 240 / 240 700 / 700 360 / 360 Balance 240 / 240 700 / 700 360 / 360 Microbiology Past 72 Hours 09/03/18 10:51 Stool Occult Blood (DEION) - Final Stool Occult Blood Positive Medical Necessity - Tobacco Use Smoking Status: Former smoker Tobacco Use: Cigarettes Assessment/Plan All Active Problems (Last Updated 08/16/18 @ 22:40 by Vanesa Tejada) Debility (Acute) Hypokalemia (Acute) Leukocytosis (Acute) Acute ischemic left posterior cerebral artery ([employer]IDENT [employer]GEMENT) stroke (Acute) Aortic aneurysm rupture (Resolved) The patient is a 82 year old F with PMH HTN, HLD, TIA, glaucoma, melanoma, recent abdominal aortic aneurysm rupture status post endovascular repair on 08/10/2018 at [place], [place] complicated by acute left VICE [employer]IDENT [employer] MANAGEMENT stroke on 08/11/2018, now admitted to [facility] on 08/16/2018 with debility status post acute left [employer]NAGEMENT stroke, for greater than 3 hours therapy daily with a goal of returning back to her home at or near her prior functional baseline. Plan ?PT for gait stability ?OT for ADLs ?Bowel protocol ?Analgesics as needed ?Labs reviewed?WBC 12.3, INR 2, AST 44. Patient had a high INR as an inpatient at the outside hospital, reason not clear. Will defer further management per hospitalist recommendation. 09/04: Resolved ?Left V[employer]NAGEMENT stroke, small right superior cerebellar stroke?on aspirin and Lipitor. 08/24: Stable. 09/04: Stable ?HTN?on lisinopril and hydralazine. 08/24: Controlled. 09/04: Remained stable ?HLD- on atorvastatin ?GI/DVT prophylaxis-on famotidine/Lovenox, SCDs ?Fall precautions ?Hospitalist consult ?Further medical management per hospitalist recommendations ?Follow-up with PCP and neurology on discharge. approved through 09/08/18
--- NOTE | 2018-09-04 15:56 | PN_ITS ---
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 She has no complaints. Review of systems otherwise negative. She was started on Remeron yesterday on account of decreased appetite. She is due for discharge on either or Monday. She is to be discharged to a fpc. Vitals/I&O's: Vital Signs Temp Pulse Resp BP Pulse Ox 98.9 F 79 16 130/69 H 95 09/04/18 08:50 09/04/18 12:58 09/04/18 08:50 09/04/18 08:50 09/04/18 08:50 Oxygen Delivery Method Room Air Weight: 110 lb Body Mass Index (BMI) 22.6 Intake and Output for Last 24 Hours 09/02/18 09/03/18 09/04/18 23:59 23:59 23:59 Intake Total 240 / 240 700 / 700 1060 / 1060 Balance 240 / 240 700 / 700 1060 / 1060 General: Alert, Oriented x3, Cooperative, No apparent distress HEENT: Atraumatic, PERRLA, EOMI, Normocephalic Oral: Moist Mucosa Neck: Supple, No JVD, Negative Carotid Bruits Lungs: Clear to auscultation, Normal air movement, No rhonchi, No wheeze, No rales Cardiovascular: Regular rate, Regular Rhythm, Normal S1, Normal S2, No murmurs Abdomen: Bowel Sounds Present, Soft, Non Tender, Non-Distended, No Hepato- splenomegaly Extremities: No clubbing, No cyanosis, No edema, Capillary Refill Less than 3 Seconds Skin: No rashes, No breakdown Musculoskeletal: No Tenderness to Palpation of Joints or Extremities Lymphatic: No Cervical, Supraclavicular, or Inguinal Adenopathy Neurological: - - mild RUE weakness, with power 4/5. has power 5/5 in all other limbs Psych/Mental Status: Normal Affect, Appropriate, Alert and oriented to time, place, person, mood and affect Microbiology Past 72 Hours 09/03/18 10:51 Stool Stool Occult Blood (DEION) - Final Occult Blood Positive Current Medications Acetaminophen (Tylenol) 650 mg PO Q6H PRN PRN PRN Reason: PAIN Last Admin: 09/04/18 05:00 Dose: 650 mg [facility]) [facility] Last Admin: 09/04/18 07:49 Dose: 81 mg Atorvastatin Calcium (Lipitor) 40 mg PO QHS [facility] Last Admin: 09/03/18 20:39 Dose: 40 mg Bisacodyl (Dulcolax) 10 mg RECTAL .PRN X 1 PRN PRN Reason: Constipation Calamine/Phenol (Calmoseptine Ointment) 1 applic TOPICAL BID [facility]; Protocol Last Admin: 09/04/18 07:56 Dose: 1 applicatio Calcium/Vitamin D (Os-Chi 500mg + D) [facility] Last Admin: 09/04/18 07:49 Dose: 1 tablet Famotidine (Pepcid) 20 mg PO BID [facility] Last Admin: 09/04/18 07:49 Dose: 20 mg Ferrous Sulfate (Ferrous Sulfate) 325 mg PO 1200,1700 [facility] Last Admin: 09/04/18 11:24 Dose: 325 mg Hydralazine HCl (Apresoline) 25 mg PO TID [facility] Last Admin: 09/04/18 12:58 Dose: 25 mg Latanoprost (Xalatan Opthalmic) 1 drop EACH EYE DAILY [facility] Last Admin: 09/04/18 07:50 Dose: 1 drop Lisinopril (Zestril) 40 mg PO DAILY@0700 [facility] Last Admin: 09/04/18 05:01 Dose: 40 mg Mirtazapine (Remeron) 7.5 mg PO QHS [facility] Last Admin: 09/03/18 20:39 Dose: 7.5 mg Potassium Chloride (K-Dur) [facility]q [facility] Last Admin: 09/04/18 07:49 Dose: 40 meq Senna/Docusate Sodium (Senokot-S, Danielle-Colace) 2 tablet PO BID PRN PRN PRN Reason: constipation Sodium Chloride () 5 - 15 ml IV UD PRN PRN Reason: SALINE FLUSH Last Admin: 08/25/18 18:06 Dose: 10 ml Medical Necessity - Tobacco Use Smoking Status: Former smoker Tobacco Use: Cigarettes Assessment/Plan All Active Problems (Last Updated 08/16/18 @ 22:40 by Vanesa Tejada) Debility (Acute) Hypokalemia (Acute) Leukocytosis (Acute) Acute ischemic left posterior cerebral artery (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 * on aspirin and statin * PT/OT on board * 2. Debility due to stroke: PT/OT on board 3. Hypertension: controlled. On lisinopril and hydralazine. 4. Hyperlipidemia: on statin 5. Anorexia and recent weight loss, on Remeron. 6. Acute on chronic anemia * Lovenox was discontinued and last H&H was 8.1. FOBT positive x2. * Patient did have an abdominal aortic aneurysm which is suspected to be leaking. Is due to follow-up with her doctor in [place] for decision to be made about further surgery warranted. 7. Abdominal aortic aneurysm rupture s/p endovascular repair and complicated by stroke: * as under 1. * To follow up surgeons in [place] after discharge decision to be made about further surgery. DVT prophylaxis; SCDs Code Visit Inpatient E&M: 07908 Subs Hosp L2
[2018-09-04 20:10] VITALS: BP 126/60; PULSE 98; RESP 18; TEMP 36.8; O2SAT 93
[2018-09-04 20:18] VITALS: BMI 22.6
[2018-09-04] MEDS: Atorvastatin Calcium 40 MG Tablet PO (20:19)
[2018-09-04] MEDS: Mirtazapine 15 MG Tablet 7.5 MG PO (20:19)
[2018-09-04 20:20] VITALS: BP 126/60; PULSE 98
[2018-09-04 22:00] VITALS: PULSE 98; RESP 16
[2018-09-05] VITALS (7 sets, daily range): BP systolic 110–142; BP diastolic 55–64; PULSE 88–105; RESP 16–17; TEMP 36.6–37; O2SAT 94–96; BMI 22.6
[2018-09-05] MEDS: hydrALAZINE 25 MG Tablet PO ×3 (06:03→22:25)
[2018-09-05] MEDS: Lisinopril 40 MG Tablet PO (06:03)
[2018-09-05] MEDS: Acetaminophen 325 MG Tablet 650 MG PO (06:05)
[2018-09-05] MEDS: Menthol/Lanolin/Calamine/Znox 113 GM Tube 1 APPLIC TOPICAL ×2 (08:00→22:25)
[2018-09-05] MEDS: Latanoprost 0.005% 1 Bottle 1 DRP EACH EYE (08:01)
[2018-09-05] MEDS: Aspirin E.C. 81 MG Tablet PO (08:02)
[2018-09-05] MEDS: Famotidine 20 MG Tablet PO ×2 (08:02→22:24)
[2018-09-05] MEDS: Calcium Carb/Vitamin D 1 TABLET Tablet PO ×2 (08:02→16:32)
[2018-09-05] MEDS: Ferrous Sulfate 325 MG Tablet PO ×2 (11:22→16:32)
--- NOTE | 2018-09-05 13:04 | PCM.PN.NEU ---
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 Tolerating therapies. No GI or complaints. Denies pain. Tolerating p.o. well. Objective: Exam is stable. She is alert and oriented. Continues to experience right-sided neglect and right-sided weakness but this is stable/improved. There is also a right field cut. - Physical Exam Vital Signs Temp Pulse Resp BP Pulse Ox 37.0 C 97 17 113/64 94 09/05/18 07:03 09/05/18 07:03 09/05/18 07:03 09/05/18 07:03 09/05/18 07:03 Oxygen Delivery Method Room Air Weight: 49.6 kg Body Mass Index (BMI) 22.6 Intake and Output for Last 24 Hours 09/03/18 09/04/18 09/05/18 23:59 23:59 23:59 Intake Total 700 / 700 1540 / 1540 240 / 240 Output Total 400 / 400 Balance 700 / 700 1140 / 1140 240 / 240 Microbiology Past 72 Hours 09/03/18 10:51 Stool Occult Blood (DEION) - Final Stool Occult Blood Positive Current Medications Generic Name Dose Route Start Last Admin Trade Name Freq PRN Reason Stop Dose Admin Acetaminophen 650 mg 08/21/18 14:29 09/05/18 06:05 Tylenol PO 650 mg Q6H PRN PRN Administration PAIN Aspirin 81 mg 08/17/18 08:00 09/05/18 08:02 Ecotrin PO 81 mg DAILYCM LISANDRO Administration Atorvastatin Calcium 40 mg 08/17/18 22:00 09/04/18 20:19 Lipitor PO 40 mg QHS LISANDRO Administration Bisacodyl 10 mg 08/16/18 19:44 Dulcolax RECTAL .PRN X 1 PRN Constipation Calamine/Phenol 1 applic 08/21/18 10:00 09/05/18 08:00 Calmoseptine Ointment TOPICAL 1 applicatio BID LISANDRO Administration Protocol Calcium/Vitamin D 1 tablet 08/17/18 08:00 09/05/18 08:02 Os-Chi 500mg + D PO 1 tablet BIDCM LISANDRO Administration Famotidine 20 mg 08/17/18 22:00 09/05/18 08:02 Pepcid PO 20 mg BID LISANDRO Administration Ferrous Sulfate 325 mg 08/18/18 17:00 09/05/18 11:22 Ferrous Sulfate PO 325 mg 1200,1700 LISANDRO Administration Hydralazine HCl 25 mg 08/16/18 22:00 09/05/18 06:03 Apresoline PO 25 mg TID LISANDRO Administration Latanoprost 1 drop 08/17/18 10:00 09/05/18 08:01 Xalatan Opthalmic EACH EYE 1 drop DAILY LISANDRO Administration Lisinopril 40 mg 08/31/18 07:00 09/05/18 06:03 Zestril PO 40 mg DAILY@0700 LISANDRO Administration Mirtazapine 7.5 mg 09/03/18 22:00 09/04/18 20:19 Remeron PO 7.5 mg QHS LISANDRO Administration Potassium Chloride 40 meq 08/28/18 08:00 09/05/18 08:02 K-Dur PO 40 meq DAILYCM LISANDRO Administration Senna/Docusate Sodium 2 tablet 08/27/18 08:20 Senokot-S, Danielle-Colace PO BID PRN PRN constipation Sodium Chloride 5 - 15 ml 08/22/18 19:10 08/25/18 18:06 IV 10 ml UD PRN Administration SALINE FLUSH Medical Necessity - Tobacco Use Smoking Status: Former smoker Tobacco Use: Cigarettes Assessment/Plan All Active Problems (Last Updated 08/16/18 @ 22:40 by Vanesa Tejada) Debility (Acute) Hypokalemia (Acute) Leukocytosis (Acute) Acute ischemic left posterior cerebral artery (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 Plan PT for gait stability OT for ADLs Speech therapy Bowel protocol Analgesics as needed Labs reviewed?WBC 12.3, INR 2, AST 44. Patient had a high INR as an inpatient at the outside hospital, reason not clear. Will defer further management per hospitalist recommendation. 09/04: Resolved Left FLIGHT SERVICE AGENT stroke, small right superior cerebellar stroke?on aspirin and Lipitor. 08/24: Stable. 09/04: Stable HTN?on lisinopril and hydralazine. 08/24: Controlled. 09/04: Remained stable HLD- on atorvastatin GI/DVT prophylaxis-on famotidine/Lovenox, SCDs approved through 09/08/18
[2018-09-05] MEDS: Mirtazapine 15 MG Tablet 7.5 MG PO (22:24)
[2018-09-05] MEDS: Atorvastatin Calcium 40 MG Tablet PO (22:25)
[2018-09-06 05:33] VITALS: BP 129/60; PULSE 99
[2018-09-06] MEDS: hydrALAZINE 25 MG Tablet PO ×3 (05:33→21:31)
[2018-09-06] MEDS: Lisinopril 40 MG Tablet PO (06:33)
[2018-09-06] MEDS: Aspirin E.C. 81 MG Tablet PO (07:35)
[2018-09-06] MEDS: Calcium Carb/Vitamin D 1 TABLET Tablet PO ×2 (07:35→17:57)
[2018-09-06] MEDS: Famotidine 20 MG Tablet PO ×2 (07:35→21:30)
[2018-09-06] MEDS: Latanoprost 0.005% 1 Bottle 1 DRP EACH EYE (07:36)
[2018-09-06] MEDS: Menthol/Lanolin/Calamine/Znox 113 GM Tube 1 APPLIC TOPICAL ×2 (07:42→21:30)
[2018-09-06 08:32] VITALS: BP 129/60; PULSE 99; RESP 20; TEMP 37.1; O2SAT 93
--- NOTE | 2018-09-06 10:46 | CASEMGMT ---
Social Work Team meeting held today with pt, daughter and son in law present. Pt is receiving PT/OT/ST and is progressing with therapy. D/C date set for 09/08/18 and at this time pt will require continued rehab in SNF. Family would like pt to transfer to the [facility]. Phone call to Elena at the [facility] and they are able to accept pt. Referral information faxed. Plan: [facility] 09/08/18 DANIEL Pete
--- NOTE | 2018-09-06 11:11 | PCM.TXEXTCAR ---
- Diet 08/30/18 12:04 Diet: Regular Diet Food consistency:: Puree Liquid Consistency:: [place] Thick Dietary Modifications:: Pureed Diet [place] Thick Liquids Is pt able to select menu?: No Diet Comments: Supervision; seated at 90 degrees; FFWP; medications whole w/ purees - Wound(s) RUE Wound Type: Skin Tear R groin Wound Type: Surgical Incision L. groin Wound Type: Surgical Incision - Therapies Weight Bearing: Full weight bearing Extremity Affected:: Right Upper Physical Therapy: Eval and Treat Occupational Therapy: Eval and Treat Speech Therapy: Eval and Treat - Allergies/Procedures Done in Hospital Allergies/Adverse Reactions: Allergies No Known Allergies Allergy (Verified 08/16/18 19:42) - Type of Care/Length of Stay Estimated LOS: More Than 30 Days Type of Care Needed: Skilled Rehab Potential: Fair Prognosis: Good - Additional Orders/Day of Discharge Day of Discharge: 09/08/18 - Dietary and Speech Recommendations Dietitian Recommendations/Changes: May need to consider alternate nutrition/TF support if poor PO intake and wt loss continues. - Follow Up Care
[2018-09-06] MEDS: Acetaminophen 325 MG Tablet 650 MG PO (11:12)
[2018-09-06] MEDS: Ferrous Sulfate 325 MG Tablet PO ×2 (11:13→17:57)
--- NOTE | 2018-09-06 11:16 | DS.PCM_ITS ---
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) stroke (Acute) - Physical Exam General: Alert, Oriented x3, Cooperative, No apparent distress Neurological: Cranial nerves II-XII grossly intact - Field cut right, - - Sided neglect mild right sided weakness and discoordination Vital Signs Temp Pulse Resp BP Pulse Ox 37.1 C 99 20 H 129/60 H 93 09/06/18 08:32 09/06/18 08:32 09/06/18 08:32 09/06/18 08:32 09/06/18 08:32 Oxygen Delivery Method Room Air Weight: 49.6 kg Body Mass Index (BMI) 22.6 Intake and Output for Last 24 Hours 09/04/18 09/05/18 09/06/18 23:59 23:59 23:59 Intake Total 1540 / 1540 1160 / 1160 360 / 360 Output Total 400 / 400 50 / 50 Balance 1140 / 1140 1110 / 1110 360 / 360 Microbiology Past 72 Hours 09/03/18 10:51 Stool Occult Blood (DEION) - Final Stool Occult Blood Positive Discharge Activity: Return to Normal Activity, May Not Drive, Use Walker Weight Bearing Status: Weight bearing as tolerated Lifting Restrict to (lbs):: 10 Home Medications: Medications to take at Discharge RX: Aspirin [Aspir 81] 81 mg PO DAILY 08/16/18 RX: Calcium Carb/Vitamin D [Os-Chi 500MG + D] 1 tablet PO BIDCM 08/16/18 RX: Acetaminophen [Tylenol Tablet] 650 mg PO Q6H PRN PRN tablet 09/06/18 RX: Atorvastatin Calcium [Lipitor] 40 mg PO QHS tablet 09/06/18 RX: Bisacodyl [Dulcolax] 10 mg RECTAL .PRN X 1 PRN suppos. 09/06/18 RX: Famotidine [Pepcid] 20 mg PO BID tablet 09/06/18 RX: Ferrous Sulfate 325 mg PO 1200,1700 tablet 09/06/18 RX: Latanoprost 0.005% [Xalatan Opthalmic] 1 drop EACH EYE DAILY bottle 09/06/18 RX: Lisinopril [Zestril] 40 mg PO DAILY@0700 tablet 09/06/18 RX: Menthol/Lanolin/Calamine/Znox [Calmoseptine Ointment] 1 applic TOPICAL BID tube 09/06/18 RX: Potassium Chloride [K-Dur] 40 meq PO DAILYCM tablet 09/06/18 RX: Senna/Docusate Sodium [Senokot-S] 2 tablet PO BID PRN PRN tablet 09/06/18 RX: hydrALAZINE [Apresoline] 25 mg PO TID tablet 09/06/18 Disposition: Long-Term facility Minutes spent on discharge:: 40 Patient Condition:: Good Rehab Course The patient is a 82 year old F [] Meaningful Use Info Meaningful Use Diagnoses (Choose all that apply): None applicable
--- NOTE | 2018-09-06 11:16 | PCM.PN.NEU ---
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 Staffed in team meeting. Family members are present. Doing well from a physical therapy and occupational therapy standpoint speech therapy is still noting primarily naming issues. Nursing notes transfers are improved no other nursing issues. Plan to discharge to extended care on Monday. The family is not going to return to [place] for follow-up testing by their own decision. They would like follow-up testing here. Since she is going to a residential and the faculty i on call medical assistant there is unknown to them, it is felt that it is a patient safety issue to have follow-up testing here prior to discharge. She will be made n.p.o. tonight and testing will be done tomorrow including CTA of the abdomen and abdominal ultrasound and we will compare this to previous. If needed we will involve general surgery here. - Physical Exam General: Alert, Oriented x3 Neurological: Cranial nerves II-XII grossly intact Psych/Mental Status: Normal Affect Vital Signs Temp Pulse Resp BP Pulse Ox 37.1 C 99 20 H 129/60 H 93 09/06/18 08:32 09/06/18 08:32 09/06/18 08:32 09/06/18 08:32 09/06/18 08:32 Oxygen Delivery Method Room Air Weight: 49.6 kg Body Mass Index (BMI) 22.6 Intake and Output for Last 24 Hours 09/04/18 09/05/18 09/06/18 23:59 23:59 23:59 Intake Total 1540 / 1540 1160 / 1160 360 / 360 Output Total 400 / 400 50 / 50 Balance 1140 / 1140 1110 / 1110 360 / 360 Microbiology Past 72 Hours 09/03/18 10:51 Stool Occult Blood (DEION) - Final Stool Occult Blood Positive Medical Necessity - Tobacco Use Smoking Status: Former smoker Tobacco Use: Cigarettes Assessment/Plan All Active Problems (Last Updated 08/16/18 @ 22:40 by Vanesa Tejada) Debility (Acute) Hypokalemia (Acute) Leukocytosis (Acute) Acute ischemic left posterior cerebral artery (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 Plan PT for gait stability OT for ADLs Speech therapy Bowel protocol Analgesics as needed Labs reviewed?WBC 12.3, INR 2, AST 44. Patient had a high INR as an inpatient at the outside hospital, reason not clear. Will defer further management per hospitalist recommendation. 09/04: Resolved Left CREASING MACHINE OPERATOR stroke, small right superior cerebellar stroke?on aspirin and Lipitor. 08/24: Stable. 09/04: Stable HTN?on lisinopril and hydralazine. 08/24: Controlled. 09/04: Remained stable HLD- on atorvastatin GI/DVT prophylaxis-on famotidine/Lovenox, SCDs Family indicates they will not return to [place] for follow-up testing therefore we will have follow-up testing here prior to discharge since we can compare her testing and have follow-up arranged here in [place] rather than awaiting for this to be arranged when she gets to her F which could potentially be problematic due to the complexity of the situation. approved through 09/08/18
--- NOTE | 2018-09-06 11:19 | PN.NEURO_ITS ---
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 Staffed in team meeting. Family members are present. Doing well from a physical therapy and occupational therapy standpoint speech therapy is still noting primarily naming issues. Nursing notes transfers are improved no other nursing issues. Plan to discharge to extended care on Monday. The family is not going to return to [place] for follow-up testing by their own decision. They would like follow-up testing here. Since she is going to a [place] [facility] and the medical laboratory technical officer there is unknown to them, it is felt that it is a patient safety issue to have follow-up testing here prior to discharge. She will be made n.p.o. tonight and testing will be done tomorrow including CTA of the abdomen and abdominal ultrasound and we will compare this to previous. If needed we will involve general surgery here. - Physical Exam General: Alert, Oriented x3 Neurological: Cranial nerves II-XII grossly intact Psych/Mental Status: Normal Affect Vital Signs Temp Pulse Resp BP Pulse Ox 37.1 C 99 20 H 129/60 H 93 09/06/18 08:32 09/06/18 08:32 09/06/18 08:32 09/06/18 08:32 09/06/18 08:32 Oxygen Delivery Method Room Air Weight: 49.6 kg Body Mass Index (BMI) 22.6 Intake and Output for Last 24 Hours 09/04/18 09/05/18 09/06/18 23:59 23:59 23:59 Intake Total 1540 / 1540 1160 / 1160 360 / 360 Output Total 400 / 400 50 / 50 Balance 1140 / 1140 1110 / 1110 360 / 360 Microbiology Past 72 Hours 09/03/18 10:51 Stool Occult Blood (DEION) - Final Stool Occult Blood Positive Medical Necessity - Tobacco Use Smoking Status: Former smoker Tobacco Use: Cigarettes Assessment/Plan All Active Problems (Last Updated 08/16/18 @ 22:40 by Vanesa Tejada) Debility (Acute) Hypokalemia (Acute) Leukocytosis (Acute) Acute ischemic left posterior cerebral artery (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 Plan PT for gait stability OT for ADLs Speech therapy Bowel protocol Analgesics as needed Labs reviewed?WBC 12.3, INR 2, AST 44. Patient had a high INR as an inpatient at the outside hospital, reason not clear. Will defer further management per hospitalist recommendation. 09/04: Resolved Left ACCESS TECH stroke, small right superior cerebellar stroke?on aspirin and Lipitor. 08/24: Stable. 09/04: Stable HTN?on lisinopril and hydralazine. 08/24: Controlled. 09/04: Remained stable HLD- on atorvastatin GI/DVT prophylaxis-on famotidine/Lovenox, SCDs Family indicates they will not return to [place] for follow-up testing therefore we will have follow-up testing here prior to discharge since we can compare her testing and have follow-up arranged here in [place] rather than awaiting for this to be arranged when she gets to her [facility] which could potentially be problematic due to the complexity of the situation. approved through 09/08/18
[2018-09-06 13:51] VITALS: BMI 22.6
[2018-09-06 15:26] VITALS: PULSE 79
[2018-09-06 19:26] VITALS: BP 137/64; PULSE 101; RESP 16; TEMP 37.1; O2SAT 97
[2018-09-06 21:29] VITALS: BP 133/68; PULSE 102
[2018-09-06] MEDS: Atorvastatin Calcium 40 MG Tablet PO (21:30)
[2018-09-06 21:31] VITALS: BP 133/68; PULSE 102
[2018-09-07 00:34] VITALS: BP 133/68; PULSE 102
[2018-09-07 05:00] VITALS: BMI 22.6
[2018-09-07 05:27] LABS: Anion Gap 7 (5-15); BUN 18 mg/dL (7-18); BUN/Creat Ratio 27.6 RATIO (10-20); Calcium,Total 8.5 mg/dL (8.5-10.1); Chloride 102 mmol/L (98-107); Creatinine, Serum 0.65 mg/dL (0.55-1.02); EST Glomerular Filtration Rate 92 mL/min (>60); Est Glom Filt Rate - Afr Amer 112 mL/min (>60); Estimated Creatinine Clearance 34.55 ml/min; Glucose 126 mg/dL (74-106); Potassium 4.1 mmol/L (3.5-5.1); Sodium Level 135 mmol/L (136-145)
[2018-09-07 07:00] VITALS: BP 134/69; PULSE 97; RESP 24; TEMP 37.1; O2SAT 94
--- NOTE | 2018-09-07 08:00 | CT_ITS ---
STUDY: CTA OF THE ABDOMINAL AORTA REASON FOR EXAM: Female, 82 years old. Prior abdominal aortic aneurysm repair and possible leak. RADIATION DOSAGE (If Supplied By Facility): CTDIvol = ( 16.36 ) mGy, DLP = ( 468.70 ) mGycm TECHNIQUE: Axial CT angiography multi-detector data acquisition was obtained from the dome of the liver to the symphysis pubis following intravenous administration of 100ML IV Isovue 300. Axial images and MIP images were reconstructed from the axial data set. Post-processing of the angiographic images was performed, with multiplanar reformation and 3D reconstruction. Individualized dose optimization techniques were used for this CT. TECHNICAL QUALITY: Good COMPARISON: None. Descriptors of Narrowing: None (0%) Mild (< 50%) Moderate (50-70%) Severe (70-90%) Subtotal/Total Occlusion (90-100%) Non-Evaluable (technically non-diagnostic FINDINGS: Small left pleural effusion with a left basilar atelectasis. Mild degree of right basilar atelectasis. 1 cm cyst in the anterior aspect of the left lobe of the liver. Abdominal aorta: There is evidence of a fusiform infrarenal abdominal aortic aneurysm with a transverse dimension of 3.5 cm. An endoluminal stent graft is seen with the distal tip in the distal abdominal aorta and common iliac arteries bilaterally. There is evidence of a 1.8 cm x 1.3 cm contrast collection along the anterior aspect of the stent grafting in its proximal aspect with a fine linear collection adjacent to the left side of the aortic lumen. This is suggestive of extravasation. There is evidence of a 9.1 cm x 5.5 cm x 10.8 cm abnormal but nonspecific density arising from the left side of the abdominal aorta extending into the left psoas muscle and into the pelvis. This is suggestive of a retroperitoneal hematoma in different stages of resorption. Celiac and superior mesenteric arteries: Atherosclerotic plaque formation at the origin of the celiac and superior mesenteric arteries. Right renal artery(arteries): No demonstrated narrowing. Left renal artery(arteries): No demonstrated narrowing. Small left renal cyst. Prior laminectomy and fusion in the lower lumbar spine. CT/CTA Abdomen W/WO Contrast IMPRESSION: Status post endoluminal stent grafting of the abdominal aortic aneurysm with findings suggestive of a large left retroperitoneal hematoma in various stages of resolution due to a leak from the endoluminal stent grafting along the anterior left aspect of the proximal graft.. Electronically Signed: Den Vance, at 11:11 EDT , Service support ,
--- NOTE | 2018-09-07 08:00 | US_ITS ---
PROCEDURES: ULTRASOUND AORTA REASON FOR EXAM: Female, 82 years old. AAA TECHNIQUE: Ultrasound evaluation of the aorta was performed with real-time and static cruz-scale imaging. Exam limited. COMPARISON: CTA from 09/07/2018 FINDINGS: The proximal aorta measures 1.8 x 3.0 cm. The mid aorta measures 3.6 x 3.8 cm with eccentric mural thrombus and calcification. A complex hypoechoic structure adjacent to the mid and distal aorta is partially visualized but certainly better seen on CTA performed on the same day. US/Aorta IMPRESSION: 1. Limited visualization of the abdominal aorta. Abdominal aortic aneurysm with mural thrombus and periaortic fluid collection. The above described certainly better seen and described on CTA of 09/07/2018. Electronically Signed: Abiel Tidwell MD at 18:00 EDT , Service support ,
--- NOTE | 2018-09-07 10:43 | CASEMGMT ---
Social Work Pt planning to d/c tomorrow to [facility]. Orders faxed to the [facility] and [phone] exemption for Direction Home completed. SW spoke with pt mary Rowe and she plans to transport pt to the [facility] tomorrow at 1130. Nursing made aware. No further d/c needs. ] Plan: [facility], 09/08/18 DANIEL Pete
[2018-09-07] MEDS: Aspirin E.C. 81 MG Tablet PO (13:29)
[2018-09-07] MEDS: Calcium Carb/Vitamin D 1 TABLET Tablet PO ×2 (13:29→16:54)
[2018-09-07] MEDS: Divalproex (ER) 500 MG Tablet 1000 MG PO (13:29)
[2018-09-07] MEDS: Ferrous Sulfate 325 MG Tablet PO ×2 (13:29→16:53)
[2018-09-07] MEDS: Famotidine 20 MG Tablet PO ×2 (13:29→21:02)
[2018-09-07] MEDS: Latanoprost 0.005% 1 Bottle 1 DRP EACH EYE (13:30)
[2018-09-07] MEDS: Menthol/Lanolin/Calamine/Znox 113 GM Tube 1 APPLIC TOPICAL ×2 (13:32→22:29)
[2018-09-07 13:34] VITALS: BP 108/51; PULSE 99
[2018-09-07] MEDS: hydrALAZINE 25 MG Tablet PO ×2 (13:34→21:02)
--- NOTE | 2018-09-07 14:03 | PCM.PN.NEU ---
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 I reviewed this in person with Dr. Huynh. Discussed this with family members. She either needs to be transferred for emergent surgery or be made hospice. Family is considering options and will let us know as soon as possible. - Physical Exam Vital Signs Temp Pulse Resp BP Pulse Ox 37.1 C 99 24 H 108/51 L 94 09/07/18 07:00 09/07/18 13:34 09/07/18 07:00 09/07/18 13:34 09/07/18 07:00 Oxygen Delivery Method Room Air Weight: 49.6 kg Body Mass Index (BMI) 22.6 Intake and Output for Last 24 Hours 09/05/18 09/06/18 09/07/18 23:59 23:59 23:59 Intake Total 1160 / 1160 1310 / 1310 0 / 0 Output Total 50 / 50 600 / 600 Balance 1110 / 1110 710 / 710 0 / 0 Laboratory Tests Past 24 Hrs 09/07/18 05:00 Sodium 135 L Potassium 4.1 Chloride 102 Carbon Dioxide 26.0 Anion Gap 7 BUN 18 Creatinine 0.65 Estim Creat Clear Calc 34.55 Est GFR (MDRD) Af Amer 112 Est GFR (MDRD) Non-Af 92 BUN/Creatinine Ratio 27.6 H Glucose 126 H Calcium 8.5 Medical Necessity - Tobacco Use Smoking Status: Former smoker Tobacco Use: Cigarettes Assessment/Plan All Active Problems (Last Updated 08/16/18 @ 22:40 by Vanesa Tejada) Debility (Acute) Hypokalemia (Acute) Leukocytosis (Acute) Acute ischemic left posterior cerebral artery (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
--- NOTE | 2018-09-07 14:06 | PN.NEURO_ITS ---
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 I reviewed this in person with Dr. Huynh. Discussed this with family members. She either needs to be transferred for emergent surgery or be made hospice. Family is considering options and will let us know as soon as possible. - Physical Exam Vital Signs Temp Pulse Resp BP Pulse Ox 37.1 C 99 24 H 108/51 L 94 09/07/18 07:00 09/07/18 13:34 09/07/18 07:00 09/07/18 13:34 09/07/18 07:00 Oxygen Delivery Method Room Air Weight: 49.6 kg Body Mass Index (BMI) 22.6 Intake and Output for Last 24 Hours 09/05/18 09/06/18 09/07/18 23:59 23:59 23:59 Intake Total 1160 / 1160 1310 / 1310 0 / 0 Output Total 50 / 50 600 / 600 Balance 1110 / 1110 710 / 710 0 / 0 Laboratory Tests Past 24 Hrs 09/07/18 05:00 Sodium 135 L Potassium 4.1 Chloride 102 Carbon Dioxide 26.0 Anion Gap 7 BUN 18 Creatinine 0.65 Estim Creat Clear Calc 34.55 Est GFR (MDRD) Af Amer 112 Est GFR (MDRD) Non-Af 92 BUN/Creatinine Ratio 27.6 H Glucose 126 H Calcium 8.5 Medical Necessity - Tobacco Use Smoking Status: Former smoker Tobacco Use: Cigarettes Assessment/Plan All Active Problems (Last Updated 08/16/18 @ 22:40 by Vanesa Tejada) Debility (Acute) Hypokalemia (Acute) Leukocytosis (Acute) Acute ischemic left posterior cerebral artery (IRON CASTER) stroke (Acute) Aortic aneurysm rupture (Resolved)
[2018-09-07 14:22] VITALS: BMI 22.6
--- NOTE | 2018-09-07 15:02 | PCM.PN.HOSP ---
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 She had a repeat CT of abdomen today which showed actively enlarging retroperitoneal hematoma due to her graft. Neurology discussed this with family members and informed them that she needs to be transferred for emergent surgery to be made hospice. Family still considering options. Abdominal aortic USG pending Vitals/I&O's: Vital Signs Temp Pulse Resp BP Pulse Ox 98.8 F 99 24 H 108/51 L 94 09/07/18 07:00 09/07/18 13:34 09/07/18 07:00 09/07/18 13:34 09/07/18 07:00 Oxygen Delivery Method Room Air Weight: 109 lb 5.588 oz Body Mass Index (BMI) 22.6 Intake and Output for Last 24 Hours 09/05/18 09/06/18 09/07/18 23:59 23:59 23:59 Intake Total 1160 / 1160 1310 / 1310 0 / 0 Output Total 50 / 50 600 / 600 Balance 1110 / 1110 710 / 710 0 / 0 General: Alert, Oriented x3, Cooperative, No apparent distress HEENT: Atraumatic, PERRLA, EOMI, Normocephalic Oral: Moist Mucosa Neck: Supple, No JVD, Negative Carotid Bruits Lungs: Clear to auscultation, Normal air movement, No rhonchi, No wheeze, No rales Cardiovascular: Regular rate, Regular Rhythm, Normal S1, Normal S2, No murmurs Abdomen: Bowel Sounds Present, Soft, Non Tender, Non-Distended, No Hepato-splenomegaly Extremities: No clubbing, No cyanosis, No edema, Capillary Refill Less than 3 Seconds Skin: No rashes, No breakdown Musculoskeletal: No Tenderness to Palpation of Joints or Extremities Lymphatic: No Cervical, Supraclavicular, or Inguinal Adenopathy Neurological: - - mild RUE weakness, with power 4/5. has power 5/5 in all other limbs Psych/Mental Status: Normal Affect, Appropriate, Alert and oriented to time, place, person, mood and affect Laboratory Results 09/07/18 05:00: Sodium 135 L, Potassium 4.1, Chloride 102, Carbon Dioxide 26.0, Anion Gap 7, BUN 18, Creatinine 0.65, Estim Creat Clear Calc 34.55, Est GFR (MDRD) Af Amer 112, Est GFR (MDRD) Non-Af 92, BUN/Creatinine Ratio 27.6 H, Glucose 126 H, Calcium 8.5 Current Medications Acetaminophen (Tylenol) 650 mg PO Q6H PRN PRN PRN Reason: PAIN Last Admin: 09/06/18 11:12 Dose: 650 mg [facility]ir[facility] ([facility]cotrin) [facility] Last Admin: 09/07/18 13:29 Dose: 81 mg Atorvastatin Calcium (Lipitor) 40 mg PO QHS [facility] Last Admin: 09/06/18 21:30 Dose: 40 mg Bisacodyl (Dulcolax) 10 mg RECTAL .PRN X 1 PRN PRN Reason: Constipation Calamine/Phenol (Calmoseptine Ointment) 1 applic TOPICAL BID [facility]; Protocol Last Admin: 09/07/18 13:32 Dose: 1 applicatio Calcium/Vitamin D (Os-Chi 500mg + D) [facility] Last Admin: 09/07/18 13:29 Dose: 1 tablet Divalproex Sodium (Depakote Er) 1,000 mg PO DAILY [facility] Last Admin: 09/07/18 13:29 Dose: 1,000 mg Famotidine (Pepcid) 20 mg PO BID [facility] Last Admin: 09/07/18 13:29 Dose: 20 mg Ferrous Sulfate (Ferrous Sulfate) 325 mg PO 1200,1700 [facility] Last Admin: 09/07/18 13:29 Dose: 325 mg Hydralazine HCl (Apresoline) 25 mg PO TID [facility] Last Admin: 09/07/18 13:34 Dose: 25 mg Latanoprost (Xalatan Opthalmic) 1 drop EACH EYE DAILY [facility] Last Admin: 09/07/18 13:30 Dose: 1 drop Lisinopril (Zestril) 40 mg PO DAILY@0700 [facility] Last Admin: 09/07/18 00:35 Dose: Not Given Potassium Chloride (K-Dur) 40 meq [facility] Last Admin: 09/07/18 13:29 Dose: 40 meq Senna/Docusate Sodium (Senokot-S, Danielle-Colace) 2 tablet PO BID PRN PRN PRN Reason: constipation Sodium Chloride () 5 - 15 ml IV UD PRN PRN Reason: SALINE FLUSH Last Admin: 08/25/18 18:06 Dose: 10 ml Medical Necessity - Tobacco Use Smoking Status: Former smoker Tobacco Use: Cigarettes Assessment/Plan All Active Problems (Last Updated 08/16/18 @ 22:40 by Vanesa Tejada) Debility (Acute) Hypokalemia (Acute) Leukocytosis (Acute) Acute ischemic left posterior cerebral artery (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 on aspirin and statin PT/OT on board 2. Abdominal aortic aneurysm rupture s/p endovascular repair and complicated by stroke: as under 1. CT abdomen today showed actively enlargeing retroperitoneal bleed due to aneurysm. family told she has to be transferred emergently or be made hospice. Family considering options. per child protective services social worker, inpatient hospice willing to accept patient if family decides to make patient hospice 3. Debility due to stroke: PT/OT on board 4. Hypertension: controlled. On lisinopril and hydralazine. 5. Hyperlipidemia: on statin 6. Anorexia and recent weight loss, on Remeron. 7. Acute on chronic anemia Lovenox was discontinued and last H&H was 8.1. FOBT positive x2. Patient did have an abdominal aortic aneurysm which is suspected to be leaking. CT abdomen as under 2. currently stable. DVT prophylaxis: SCDs Code Visit Inpatient E&M: 85076 Subs Hosp L2
--- NOTE | 2018-09-07 15:05 | PN_ITS ---
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 She had a repeat CT of abdomen today which showed actively enlarging retroperitoneal hematoma due to her graft. Neurology discussed this with family members and informed them that she needs to be transferred for emergent surgery to be made hospice. Family still considering options. Abdominal aortic USG pending Vitals/I&O's: Vital Signs Temp Pulse Resp BP Pulse Ox 98.8 F 99 24 H 108/51 L 94 09/07/18 07:00 09/07/18 13:34 09/07/18 07:00 09/07/18 13:34 09/07/18 07:00 Oxygen Delivery Method Room Air Weight: 109 lb 5.588 oz Body Mass Index (BMI) 22.6 Intake and Output for Last 24 Hours 09/05/18 09/06/18 09/07/18 23:59 23:59 23:59 Intake Total 1160 / 1160 1310 / 1310 0 / 0 Output Total 50 / 50 600 / 600 Balance 1110 / 1110 710 / 710 0 / 0 General: Alert, Oriented x3, Cooperative, No apparent distress HEENT: Atraumatic, PERRLA, EOMI, Normocephalic Oral: Moist Mucosa Neck: Supple, No JVD, Negative Carotid Bruits Lungs: Clear to auscultation, Normal air movement, No rhonchi, No wheeze, No rales Cardiovascular: Regular rate, Regular Rhythm, Normal S1, Normal S2, No murmurs Abdomen: Bowel Sounds Present, Soft, Non Tender, Non-Distended, No Hepato- splenomegaly Extremities: No clubbing, No cyanosis, No edema, Capillary Refill Less than 3 Seconds Skin: No rashes, No breakdown Musculoskeletal: No Tenderness to Palpation of Joints or Extremities Lymphatic: No Cervical, Supraclavicular, or Inguinal Adenopathy Neurological: - - mild RUE weakness, with power 4/5. has power 5/5 in all other limbs Psych/Mental Status: Normal Affect, Appropriate, Alert and oriented to time, place, person, mood and affect Laboratory Results 09/07/18 05:00: Sodium 135 L, Potassium 4.1, Chloride 102, Carbon Dioxide 26.0, Anion Gap 7, BUN 18, Creatinine 0.65, Estim Creat Clear Calc 34.55, Est GFR (MDRD) Af Amer 112, Est GFR (MDRD) Non-Af 92, BUN/Creatinine Ratio 27.6 H, Glucose 126 H, Calcium 8.5 Current Medications Acetaminophen (Tylenol) 650 mg PO Q6H PRN PRN PRN Reason: PAIN Last Admin: 09/06/18 11:12 Dose: 650 mg Aspirin (Ecotrin) [facility] Last Admin: 09/07/18 13:29 Dose: 81 mg Atorvastatin Calcium (Lipitor) 40 mg PO QHS [facility] Last Admin: 09/06/18 21:30 Dose: 40 mg Bisacodyl (Dulcolax) 10 mg RECTAL .PRN X 1 PRN PRN Reason: Constipation Calamine/Phenol (Calmoseptine Ointment) 1 applic TOPICAL BID [facility]; Protocol Last Admin: 09/07/18 13:32 Dose: 1 applicatio Calcium/Vitamin D (Os-Chi 500mg + D) [facility] Last Admin: 09/07/18 13:29 Dose: 1 tablet Divalproex Sodium (Depakote Er) 1,000 mg PO DAILY [facility] Last Admin: 09/07/18 13:29 Dose: 1,000 mg Famotidine (Pepcid) 20 mg PO BID [facility] Last Admin: 09/07/18 13:29 Dose: 20 mg Ferrous Sulfate (Ferrous Sulfate) 325 mg PO 1200,1700 [facility] Last Admin: 09/07/18 13:29 Dose: 325 mg Hydralazine HCl (Apresoline) 25 mg PO TID [facility] Last Admin: 09/07/18 13:34 Dose: 25 mg Latanoprost (Xalatan Opthalmic) 1 drop EACH EYE DAILY [facility] Last Admin: 09/07/18 13:30 Dose: 1 drop Lisinopril (Zestril) 40 mg PO DAILY@0700 [facility] Last Admin: 09/07/18 00:35 Dose: Not Given Potassium Chloride (K-Dur) 40 meq [facility] Last Admin: 09/07/18 13:29 Dose: 40 meq Senna/Docusate Sodium (Senokot-S, Danielle-Colace) 2 tablet PO BID PRN PRN PRN Reason: constipation Sodium Chloride () 5 - 15 ml IV UD PRN PRN Reason: SALINE FLUSH Last Admin: 08/25/18 18:06 Dose: 10 ml Medical Necessity - Tobacco Use Smoking Status: Former smoker Tobacco Use: Cigarettes Assessment/Plan All Active Problems (Last Updated 08/16/18 @ 22:40 by Vanesa Tejada) Debility (Acute) Hypokalemia (Acute) Leukocytosis (Acute) Acute ischemic left posterior cerebral artery (DRAPERY MAKER) stroke (Acute) Aortic aneurysm rupture (Resolved) 1. Left DRAPERY MAKER stroke and small right superior cerebellar stroke * occurred on 08/11/18 * tolerating PT/OT well. * on aspirin and statin * PT/OT on board * 2. Abdominal aortic aneurysm rupture s/p endovascular repair and complicated by stroke: * as under 1. * CT abdomen today showed actively enlargeing retroperitoneal bleed due to aneurysm. * family told she has to be transferred emergently or be made hospice. Family considering options. * per psychiatric social worker, inpatient hospice willing to accept patient if family decides to make patient hospice 3. Debility due to stroke: PT/OT on board 4. Hypertension: controlled. On lisinopril and hydralazine. 5. Hyperlipidemia: on statin 6. Anorexia and recent weight loss, on Remeron. 7. Acute on chronic anemia * Lovenox was discontinued and last H&H was 8.1. FOBT positive x2. * Patient did have an abdominal aortic aneurysm which is suspected to be leaking. * CT abdomen as under 2. * currently stable. DVT prophylaxis: SCDs Code Visit Inpatient E&M: 49654 Subs Hosp L2
--- NOTE | 2018-09-07 16:37 | CASEMGMT ---
Social Work JOSEY spoke with physician. Pt has had a change of condition and family is deciding on next course of action as physician is recommending emergent surgery or hospice care. JOSEY phoned [facility] and spoke with Martha. Discussed possibility of pt coming to the Inpatient Hospice Unit. Martha confirming that put would be a candidate for the IPU and that they can meet with the family and pt tonight or over the weekend. Phone call to pt dgt Soledad and she deferred decision making to pt dgt Gris. Phone call to Gris and JOSEY presented options with Gris including [facility] IPU, continuing with plan for pt to go [facility]. If pt would like to go to [facility] with hospice care, pt would be private pay and Gris is understanding of this. Gris states she will speak will all siblings and pt tonight and family will have a decision on next course of action tonight or tomorrow morning and call the nursing unit with decision. JOSEY spoke with KAREN Alexis and informed of above. RN is anticipating call from family and JOSEY provided number to [facility] [phone] if this decision is made. Phone call to [facility] [phone] and informed KAREN Valverde of pt current situation and that pt may or may not come to them tomorrow as planned. RU nurse to call [facility] with d/c plan when family makes decision. Emotional support provided to pt dgt Gris. DANIEL Pete
--- NOTE | 2018-09-07 17:39 | NURSING ---
IV dc'd in R. FA d/t occlusion, cath intact, pressure dressing applied, pt tolerated well.
[2018-09-07 20:56] VITALS: BP 133/66; PULSE 104; RESP 16; TEMP 37; O2SAT 94
[2018-09-07 21:02] VITALS: BP 133/66; PULSE 104
[2018-09-07] MEDS: Acetaminophen 325 MG Tablet 650 MG PO (21:02)
[2018-09-07] MEDS: Atorvastatin Calcium 40 MG Tablet PO (21:02)
[2018-09-07 22:18] VITALS: BMI 22.6
[2018-09-08 06:26] VITALS: BP 112/54; PULSE 89
[2018-09-08] MEDS: hydrALAZINE 25 MG Tablet PO (06:26)
[2018-09-08 07:00] VITALS: BP 112/54; PULSE 89; RESP 17; TEMP 36.8; O2SAT 94
[2018-09-08] MEDS: Lisinopril 40 MG Tablet PO (07:30)
[2018-09-08] MEDS: Menthol/Lanolin/Calamine/Znox 113 GM Tube 1 APPLIC TOPICAL (07:30)
[2018-09-08] MEDS: Aspirin E.C. 81 MG Tablet PO (07:30)
[2018-09-08] MEDS: Calcium Carb/Vitamin D 1 TABLET Tablet PO (07:30)
--- NOTE | 2018-09-08 09:18 | NURSING ---
Gris (daughter) tel. stated the family decided to get hospice on board for Mother's care.
--- NOTE | 2018-09-08 09:57 | NURSING ---
Dr. Sorto aware of family's decision for Hospice. New order to discharge pt into their care. This RN placed call to Hospice, awaiting call back.
[2018-09-08] MEDS: Divalproex (ER) 500 MG Tablet 1000 MG PO (11:03)
[2018-09-08] MEDS: Famotidine 20 MG Tablet PO (11:04)
[2018-09-08] MEDS: Latanoprost 0.005% 1 Bottle 1 DRP EACH EYE (11:04)
[2018-09-08] MEDS: Ferrous Sulfate 325 MG Tablet PO (11:04)
[2018-09-08] MEDS: Acetaminophen 325 MG Tablet 650 MG PO (11:06)
[2018-09-08 11:13] VITALS: BP 112/54; PULSE 89; RESP 17; TEMP 36.8; O2SAT 94
--- NOTE | 2018-09-08 11:14 | CASEMGMT ---
Addendum entered by Susie Snider 09/08/18 15:07: JOSEY spoke w/KAREN Alexis in rehab, she states pt is waiting to be assessed by RN for inpt hospice unit, if pt does not go to inpt hospice unit will go to [facility] hospice private pay. SW gave Vanesa Rowe's number at [facility] should she need to speak w/her, and asked her to let [facility] know whether or not pt will be coming there. JOSEY also called Soledad at [facility] and let her know that pt may be coming to [facility] private pay on hospice if she does not go to the inpt hospice unit. Soledad states that this will be fine. JOSEY gave Soledad RN's number in rehab if needed. Pt to be discharged yet today, either to inpt hospice or to [facility] hosp[facility]. RAYSA Mcduffie, DIRECTOR PROCESS Original Note: SW received a call from Soledad at [facility]. This pt was to come to [facility] today though she knows that this may have changed, asked for clarification. JOSEY called KAREN Alexis in rehab. She states family is opting for hospice and meeting w/hospice this afternoon, they will determine if pt is appropriate for the inpt unit. JOSEY let Soledad know this, and will let her know what the decision is. Pt can go to [facility] hosp[facility] also, but would be private pay for room and board. RAYSA Mcduffie, DIRECTOR PROCESS
--- NOTE | 2018-09-08 11:15 | NURSING ---
Martha with admissions for Hospice will meet family in pt's room at [phone]
[2018-09-08 15:05] VITALS: BP 94/46; PULSE 93
--- NOTE | 2018-09-08 17:20 | NURSING ---
Pt. being discharged to Hospice Inpt. Unit, report called to Daniele Barahona, [facility] transported pt., daughter Soledad has pt's personal belongings of pt..
--- NOTE | 2018-09-08 17:24 | NURSING ---
This RN called [facility] spoke to Ened[place], reported that pt is going to [facility]. Also called Soledad DOWLING at [facility] left voice mail that pt was transferred to [facility].
== END 2018-09-08 16:30 | disposition hospice, inpatient (51) | DRG 57 ==
PROVIDERS: Hospitalist; Internal Medicine; Psychiatry & Neurology Neurology; Admitting Provider Psychiatry & Neurology Neurology; Referring Provider Psychiatry & Neurology Neurology; Visit Provider Internal Medicine
DX: I69.351 Hemiplegia and hemiparesis following cerebral infarction affecting right dominant side (principal); I69.322 Dysarthria following cerebral infarction; I69.398 Other sequelae of cerebral infarction; H53.461 Homonymous bilateral field defects, right side; R29.818 Other symptoms and signs involving the nervous system; I69.320 Aphasia following cerebral infarction; I10 Essential (primary) hypertension; H40.9 Unspecified glaucoma; E78.5 Hyperlipidemia, unspecified; E87.6 Hypokalemia; I69.391 Dysphagia following cerebral infarction; R13.10 Dysphagia, unspecified; D63.8 Anemia in other chronic diseases classified elsewhere; D50.0 Iron deficiency anemia secondary to blood loss (chronic); Z85.820 Personal history of malignant melanoma of skin; Z86.79 Personal history of other diseases of the circulatory system; Z87.891 Personal history of nicotine dependence
CPT/HCPCS: 36415; 74175; 76775; 80048; 80053; 82274; 82607; 82728; 82746; 83540; 83550; 83735; 84132; 84450; 85025; 85027; 85045; 85610; 92507; 92523; 92526; 92610; 97110; 97112; 97116; 97140; 97162; 97166; 97530; 97535; Q9967; A4216